=== PATIENT | male | born 1960 | race Hispanic/Latino ===

== ENCOUNTER → 2017-07-05 | Day surgery (SDC) | payer MEDICARE ==
[2017-07-04 13:20] LABS: BASOPHILS % 0.3 % (0.0-1.0); EOSINOPHILS # (AUTO) 0.1 (0.0-0.4); EOSINOPHILS % 1.7 % (0.0-6.0); HEMATOCRIT 35.7 % (38.2-49.6); HEMOGLOBIN 12.6 g/dL (14.0-18.0); LYMPHOCYTES # (AUTO) 0.9 (1.0-3.2); LYMPHOCYTES % 30.4 % (18.0-39.1); MEAN CORPUSCULAR HEMOGLOBIN 34.2 pg (28-32); MEAN CORPUSCULAR HGB CONC 35.3 g/dL (31-35); MONOCYTES # (AUTO) 0.3 (0.2-0.8); MONOCYTES % 10.5 % (4.4-11.3); NEUTROPHILS # (AUTO) 1.7 (2.1-6.9); NEUTROPHILS % 56.8 % (38.7-80.0); RED BLOOD COUNT 3.68 x10e6/uL (4.3-5.7)
[2017-07-04 13:27] LABS: PLATELET COUNT 34 x10e3/uL (140-360)
[2017-07-04 13:29] LABS: INR 1.06; PROTHROMBIN TIME 14.4 seconds (11.9-14.5)
[2017-07-04 13:30] LABS: PARTIAL THROMBOPLASTIN TIME 33.2 seconds (23.8-35.5)
[2017-07-04 13:38] LABS: ALBUMIN 2.9 g/dL (3.5-5.0); ALBUMIN/GLOBULIN RATIO 0.7 (0.8-2.0); ANION GAP 10.1 mmol/L (8-16); CALCIUM 8.8 mg/dL (8.4-10.2); CREATININE, SERUM 1.26 mg/dL (0.72-1.25); POTASSIUM 5.1 mmol/L (3.5-5.1)
[~2017-07-05] MED LIST: ASPIR 8181 MG PO; EPHEDRINE SULFATE INJ 50 MG/10 ML SYR ONE; ESMOLOL HCL 100MG/10ML 10 MG/ML VIAL ONE; FENTANYL CITRATE/PF 100MCG/2 ML INJ ONE; FOLIC ACID1 MG PO; FUROSEMIDE40 MG PO; GABAPENTIN300 MG PO; INSULIN DEGLUDEC SQ; INSULIN REGULAR, HUMAN 100 UNIT/1 ML 3ML VIAL ONE; LISINOPRIL2.5 MG PO; LONG ACTING INSULIN SQ; MIDAZOLAM HCL 2 MG/2 ML VIAL ONE; NOVOLIN R100 UNIT/1 SC; OMEPRAZOLE40 MG PO; PROPOFOL IV EMULSION 10 MG/ML 50 ML VIAL ONE; PROPRANOLOL HCL10 MG PO; SODIUM CHLORIDE 0.9% 1000ML 1,000 ML ONE; SPIRONOLACTONE25 MG PO; TERBINAFINE HC250 MG PO; ULTRAM 50MG50 MG PO; VITAMIN B1 PO
== END | disposition home or self-care (01) ==
LOC: OR 08:17
PROVIDERS: ATTEND Internal Medicine Gastroenterology
DX: D64.9 Anemia, unspecified (principal); K70.30 Alcoholic cirrhosis of liver without ascites; I85.10 Secondary esophageal varices without bleeding; I86.4 Gastric varices; K29.70 Gastritis, unspecified, without bleeding; K31.89 Other diseases of stomach and duodenum; K21.9 Gastro-esophageal reflux disease without esophagitis; K59.00 Constipation, unspecified; I10 Essential (primary) hypertension; I49.3 Ventricular premature depolarization; R53.1 Weakness; E11.9 Type 2 diabetes mellitus without complications; G62.9 Polyneuropathy, unspecified; R06.02 Shortness of breath; R06.83 Snoring; R39.11 Hesitancy of micturition; F32.9 Major depressive disorder, single episode, unspecified; Z01.810 Encounter for preprocedural cardiovascular examination; Z01.812 Encounter for preprocedural laboratory examination; Z79.4 Long term (current) use of insulin; Z68.32 Body mass index [BMI] 32.0-32.9, adult
CPT/HCPCS: 36415; 43239; 43244; 80053; 85025; 85610; 85730; 93005; J2250; J7030; 43235

== ENCOUNTER 2017-07-07 16:52 | Inpatient (IN) | payer MEDICARE ==
[~2017-07-07] VITALS: Ht 167.6 cm; Wt 70.3 kg
[~2017-07-07 16:52] MED LIST changes: -EPHEDRINE SULFATE INJ 50 MG/10 ML SYR ONE; -ESMOLOL HCL 100MG/10ML 10 MG/ML VIAL ONE; -FENTANYL CITRATE/PF 100MCG/2 ML INJ ONE; -INSULIN REGULAR, HUMAN 100 UNIT/1 ML 3ML VIAL ONE; -MIDAZOLAM HCL 2 MG/2 ML VIAL ONE; -PROPOFOL IV EMULSION 10 MG/ML 50 ML VIAL ONE; -SODIUM CHLORIDE 0.9% 1000ML 1,000 ML ONE
--- NOTE | 2017-07-07 17:49 | Diagnostic Imaging Report ---
ANKLE 3+ VIEWS LEFT, FOOT LEFT COMPLETE, LOWER LEG LEFT - 3 views HISTORY: Pain. Swollen. Dislocated. COMPARISON: None available. FINDINGS: Bones: There are impaction fracture of the distal tibial and fibular metadiaphysis, with lateral anterior displacement of the fracture fragments with marked overriding. Joints: There is widening of the ankle mortise. Soft tissues: Plantar calcaneal enthesophyte. Extensive vascular calcifications. Bimalleolar soft tissue swelling. IMPRESSION: Markedly displaced impaction fractures of the distal tibial and fibular metadiaphysis (severe anterior lateral displacement of the fracture fragments. Disrupted ankle mortise. Signed by: Dr. Kartik Giron M.D. on 07/07/2017 5:45 PM
[2017-07-07] MEDS ORDERED: MORPHINE SULFATE 5 MG/ML VIAL IV PRN (19:00)
[2017-07-07] MEDS ORDERED: FENTANYL CITRATE/PF 100MCG/2 ML INJ IV ONE (21:15)
[2017-07-07] MEDS ORDERED: ONDANSETRON HCL INJ 2 MG/ML VIAL IV ONE (21:15)
--- NOTE | 2017-07-07 21:50 | Diagnostic Imaging Report ---
ANKLE TWO VIEWS LEFT Comparison: Earlier same day Clinical history: Post reduction Findings: Overlying casting material limits evaluation of bony detail. Vascular calcifications again noted. Impression: Complex intra-articular impaction fracture of the distal tibia extending into the plafond. No significant change in alignment status post splinting. Mildly displaced lateral fibular fracture with mildly improved alignment. Signed by: Dr Ana Bentley MD on 07/07/2017 9:46 PM
--- NOTE | 2017-07-07 23:01 | Diagnostic Imaging Report ---
CHEST SINGLE (PORTABLE), 07/07/2017 10:12 PM Technique: CHEST SINGLE (PORTABLE) Comparison: 08/10/2015 Clinical history: Preop for surgery Findings: Heart/mediastinum: Stable mildly enlarged Lungs/pleural spaces: Stable. Low lung volumes with left basilar pleural thickening/scarring. 2 metallic densities again overlie the right hemithorax. Impression: Stable chest Signed by: Dr Ana Bentley MD on 07/07/2017 10:57 PM
[2017-07-07 23:09] LABS: BASOPHILS % 0.5 % (0.0-1.0); EOSINOPHILS # (AUTO) 0.2 (0.0-0.4); EOSINOPHILS % 2.9 % (0.0-6.0); HEMOGLOBIN 13.3 g/dL (14.0-18.0); LYMPHOCYTES # (AUTO) 1.4 (1.0-3.2); LYMPHOCYTES % 24.5 % (18.0-39.1); MEAN CORPUSCULAR HEMOGLOBIN 34.1 pg (28-32); MEAN CORPUSCULAR HGB CONC 35.9 g/dL (31-35); MEAN CORPUSCULAR VOLUME 94.9 fL (81-99); MONOCYTES # (AUTO) 0.7 (0.2-0.8); MONOCYTES % 12.5 % (4.4-11.3); NEUTROPHILS # (AUTO) 3.3 (2.1-6.9); NEUTROPHILS % 59.2 % (38.7-80.0)
[2017-07-07 23:13] LABS: PLATELET COUNT 42 x10e3/uL (140-360)
[2017-07-07 23:19] LABS: INR 1.08; PROTHROMBIN TIME 14.6 seconds (11.9-14.5)
[2017-07-07 23:20] LABS: PARTIAL THROMBOPLASTIN TIME 33.5 seconds (23.8-35.5)
[2017-07-07 23:29] LABS: ALANINE AMINOTRANSFERASE 21 IU/L (0-55); ALBUMIN 2.8 g/dL (3.5-5.0); ALBUMIN/GLOBULIN RATIO 0.6 (0.8-2.0); ALKALINE PHOSPHATASE 186 IU/L (40-150); ANION GAP 11.9 mmol/L (8-16); BLOOD UREA NITROGEN 26 mg/dL (7-26); BUN/CREATININE RATIO 23 (6-25); CALCIUM 8.2 mg/dL (8.4-10.2); CARBON DIOXIDE 25 mmol/L (22-29); CHLORIDE 99 mmol/L (98-107); CREATININE, SERUM 1.12 mg/dL (0.72-1.25); EST GLOMERULAR FILTRATION RATE > 60 ML/MIN (60-); GLUCOSE 351 mg/dL (74-118); POTASSIUM 3.9 mmol/L (3.5-5.1); SODIUM 132 mmol/L (136-145)
[2017-07-08] MEDS ORDERED: DEXTROSE 50% SYRINGE 50 ML IV PRN (00:30)
[2017-07-08] MEDS ORDERED: ONDANSETRON HCL INJ 2 MG/ML VIAL IV PRN (00:30)
[2017-07-08] MEDS ORDERED: HYDROMORPHONE 1MG/1ML INJ IV PRN (00:30)
[2017-07-08] MEDS: SODIUM CHLORIDE 0.9% 1000ML 1,000 ML IV SCH ×2 (01:50→10:30)
[2017-07-08] MEDS ORDERED: SODIUM CHLORIDE 0.9% 250ML 250 ML ONE (03:22)
[2017-07-08 07:58] VITALS: BP 126/85
[2017-07-08] MEDS: INSULIN REGULAR, HUMAN 100 UNIT/1 ML 3ML VIAL SQ SCH ×2 (08:10→19:39)
[2017-07-08 09:23] LABS: BASOPHILS % 0.5 % (0.0-1.0); EOSINOPHILS # (AUTO) 0.2 (0.0-0.4); EOSINOPHILS % 3.8 % (0.0-6.0); HEMATOCRIT 31.4 % (38.2-49.6); HEMOGLOBIN 11.5 g/dL (14.0-18.0); LYMPHOCYTES # (AUTO) 1.3 (1.0-3.2); LYMPHOCYTES % 29.8 % (18.0-39.1); MEAN CORPUSCULAR HEMOGLOBIN 34.3 pg (28-32); MEAN CORPUSCULAR HGB CONC 36.6 g/dL (31-35); MEAN CORPUSCULAR VOLUME 93.7 fL (81-99); MONOCYTES # (AUTO) 0.5 (0.2-0.8); MONOCYTES % 12.4 % (4.4-11.3); NEUTROPHILS # (AUTO) 2.3 (2.1-6.9); NEUTROPHILS % 53.3 % (38.7-80.0); PLATELET COUNT 69 x10e3/uL (140-360); RED BLOOD COUNT 3.35 x10e6/uL (4.3-5.7); RED CELL DISTRIBUTION WIDTH 14.1 % (11.7-14.4)
[2017-07-08 09:40] LABS: ALANINE AMINOTRANSFERASE 17 IU/L (0-55); ALBUMIN 2.6 g/dL (3.5-5.0); ALBUMIN/GLOBULIN RATIO 0.6 (0.8-2.0); ALKALINE PHOSPHATASE 147 IU/L (40-150); ANION GAP 9.5 mmol/L (8-16); BLOOD UREA NITROGEN 24 mg/dL (7-26); BUN/CREATININE RATIO 26 (6-25); CALCIUM 7.9 mg/dL (8.4-10.2); CARBON DIOXIDE 25 mmol/L (22-29); CHLORIDE 102 mmol/L (98-107); CREATININE, SERUM 0.91 mg/dL (0.72-1.25); EST GLOMERULAR FILTRATION RATE > 60 ML/MIN (60-); GLUCOSE 243 mg/dL (74-118); POTASSIUM 3.5 mmol/L (3.5-5.1); SODIUM 133 mmol/L (136-145)
[2017-07-08] MEDS ORDERED: INSULIN REGULAR, HUMAN 100 UNIT/1 ML 3ML VIAL ONE (09:55)
[2017-07-08] MEDS ORDERED: ONDANSETRON HCL INJ 2 MG/ML VIAL ONE (11:40)
[2017-07-08] MEDS ORDERED: LIDOCAINE HCL 2% LOCAL INJ 5 ML SDV VIAL INJ ONE (11:40)
[2017-07-08] MEDS ORDERED: CEFAZOLIN SOD 1 GM VIAL ONE (11:40)
[2017-07-08] MEDS ORDERED: SEVOFLURANE INHAL SOLN 250 ML PEN BTL ONE (11:40)
[2017-07-08] MEDS ORDERED: PROPOFOL IV EMULSION 10 MG/ML 20 ML VIAL ONE (11:40)
[2017-07-08] MEDS ORDERED: DEXAMETHASONE SOD PHOS INJ 4 MG/ML VIAL ONE (11:40)
[2017-07-08] MEDS ORDERED: BUPIVACAINE HCL 0.5% INJ 30 ML VIAL INJ ONE (12:37)
[2017-07-08] MEDS ORDERED: MUPIROCIN 2% OINT 22 GM TUBE ONE (12:37)
[2017-07-08] MEDS ORDERED: BACITRACIN 50,000 UNIT VIAL ONE (12:38)
[2017-07-08] MEDS ORDERED: BACITRACIN ZINC 15 GM OINT ONE (12:38)
[2017-07-08] MEDS ORDERED: CEFAZOLIN SOD 2 GM/D5W 50ML 50 ML IV ONE (15:16)
--- NOTE | 2017-07-08 15:39 | Operative Report ---
DATE OF PROCEDURE: July 08, 2017 PREOPERATIVE DIAGNOSIS: Displaced trimalleolar fracture left ankle. POSTOPERATIVE DIAGNOSIS: Displaced trimalleolar fracture left ankle. TITLE OF OPERATION: Open reduction with internal fixation trimalleolar fracture tibia, fibula, and posterior malleolus. Human tissue allograft was injected in flowable form. ANESTHESIA: General endotracheal. HEMOSTASIS: A left thigh tourniquet at 350 mmHg. PROCEDURE IN DETAIL: The patient was taken to the operating room in a mildly sedated state and placed upon the operating table in supine position. Following induction of a general anesthetic, the left lower extremity was elevated to 60 degrees to exsanguinate before inflating the pneumatic thigh tourniquet to 350 mmHg to create hemostasis. The left lower extremity was placed upon the operating table prior to performing the following procedure. Procedure number 1, open reduction with internal fixation of the trimalleolar fracture of the left foot: A linear longitudinal incision was then placed across the lateral aspect of the fibula. The fibular fracture was noted to be in 3 different segments, was realigned with traction and clamps, and a Wiser (formerly WisePricer) fibular plate was applied with multiple locking and nonlocking screws. This having been plated, the posterior malleolus was realigned along with medial malleolus utilizing clamps. Posterior malleolus was fixated from anterior to posterior with a bone screw. The medial malleolus was realigned, and a bone clamp was used to align the joint and tibial plafond appropriately. Talus was inspected and noted to be within the mortise appropriately. All was done under fluoroscopy. A series of cortical cancellous locking and nonlocking screws was used to achieve and maintain appropriate alignment. This was confirmed with radiographs and fluoroscopy. The area was then irrigated with copious amounts of sterile saline solution. The medial malleolar fracture fragments were intra-articular and multiple in nature as well. This having been accomplished and the appropriate alignment having been achieved, deep closure was 3-0 Vicryl, subcutaneous closure 4-0 Vicryl. A TLS drain was applied to the medial wound. Nylon was used to close the wound. A posterior splint was applied. Human tissue allograft was injected in a flowable form to facilitate healing, and a 0.5 Marcaine block was utilized. The area was then released from the thigh tourniquet. A normal hyperemic flush was noted to all digits. The patient left the operating room with vital signs stable, in apparent satisfactory condition, having tolerated both the anesthetic and procedure very well. Job#: [id number] EV
--- NOTE | 2017-07-08 15:55 | Consultation ---
DATE OF CONSULTATION: July 08, 2017 EMERGENCY ROOM CONSULTATION LOCATION: ER #3. CHIEF COMPLAINT AND HISTORY OF CHIEF COMPLAINT: Mr. Hussein is a most pleasant 56-year-old gentleman who presented through the ER for fractured left ankle. His and daughter serve as primary historians. Mr. Hussein is alert and oriented and speaks primarily Persian. He used his family as translators. The patient apparently twisted his foot when standing up off of a toilet in a deeply recumbent, seated position. He was unable to bear weight, and the foot was noted to be dislocated from the ankle. He presented to the ER. Dr. River evaluated and called me for surgical consultation. PREVIOUS MEDICAL HISTORY: Includes diabetes and history of liver cirrhosis. He is a former drinker. He states he has not drank alcohol in 5 years. The patient is not a smoker. MEDICATIONS: He is on multiple medications, which are well documented elsewhere within the chart. REVIEW OF SYSTEMS: Otherwise within normal limits. He complains of only minimal pain in the left lower extremity. He has had surgical treatment for infections in the past. 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 The patient states he no longer works due to these infections and is disabled. PHYSICAL EXAMINATION, LOWER EXTREMITIES VASCULAR STATUS: The patient has mildly palpable pedal pulse. This was audible by Doppler earlier after reduction with splintage by the ER staff. NEUROLOGIC: The patient is grossly insensate with loss of protective sensation as evidenced by the [place] monofilament testing. DERMATOLOGIC: There are bruising and swelling of the lower extremity, multiple amputations as previously noted, and the 2nd digit of the left foot has a distal bruising of the subungual area with blackened discoloration, which is not disturbed at this point nor is it draining or obviously infected. MUSCULOSKELETAL: Evaluation shows a dislocated trimalleolar fracture in multiple segments. The fibula is displaced, and the medial malleolus is translated medially with posterior fragment in rotation. After ER treatment with closed reduction and splintage, the patient's pulse was restored, and it was felt it necessitated urgent open reduction with internal fixation for stabilization of the ankle. The patient is admitted for the same. Ancef 2 g ordered preop. We will keep him in house postoperatively until he is fully stable. Job#: [id number]
[2017-07-08] MEDS ORDERED: CEFAZOLIN SOD 1 GM VIAL IV SCH (18:00)
[2017-07-08 18:25] VITALS: BP 145/87
[2017-07-08 18:26] VITALS: BP 145/87
[2017-07-08 18:32] VITALS: BP 145/87
[2017-07-08] MEDS ORDERED: MIDAZOLAM HCL 2 MG/2 ML VIAL ONE (18:41)
[2017-07-08] MEDS ORDERED: FENTANYL CITRATE/PF 100MCG/2 ML INJ ONE (18:41)
[2017-07-08 18:48] VITALS: BP 145/87
[2017-07-08 20:00] VITALS: BP 140/85
[2017-07-08] MEDS: HYDROMORPHONE 2MG/ML INJ IV PRN (20:38)
[2017-07-08] MEDS: CEFAZOLIN SOD 1 GM VIAL IV SCH (20:38)
[2017-07-09] VITALS (9 sets, daily range): BP systolic 99–138; BP diastolic 56–81
[2017-07-09] MEDS ORDERED: SODIUM CHLORIDE 0.9% 1000ML 1,000 ML ONE (00:06)
[2017-07-09] MEDS: SODIUM CHLORIDE 0.9% 1000ML 1,000 ML IV SCH ×2 (00:11→06:30)
[2017-07-09] MEDS: HYDROMORPHONE 2MG/ML INJ IV PRN ×3 (00:44→22:31)
[2017-07-09] MEDS: CEFAZOLIN SOD 1 GM VIAL IV SCH ×4 (03:30→21:41)
[2017-07-09 07:10] LABS: BASOPHILS % 0.2 % (0.0-1.0); EOSINOPHILS % 0.3 % (0.0-6.0); HEMATOCRIT 30.8 % (38.2-49.6); HEMOGLOBIN 10.9 g/dL (14.0-18.0); LYMPHOCYTES # (AUTO) 0.9 (1.0-3.2); LYMPHOCYTES % 16.1 % (18.0-39.1); MEAN CORPUSCULAR HGB CONC 35.4 g/dL (31-35); MONOCYTES # (AUTO) 0.7 (0.2-0.8); MONOCYTES % 12.8 % (4.4-11.3); NEUTROPHILS # (AUTO) 4.1 (2.1-6.9); NEUTROPHILS % 70.4 % (38.7-80.0); PLATELET COUNT 60 x10e3/uL (140-360); RED BLOOD COUNT 3.21 x10e6/uL (4.3-5.7); RED CELL DISTRIBUTION WIDTH 13.9 % (11.7-14.4)
[2017-07-09] MEDS: INSULIN REGULAR, HUMAN 100 UNIT/1 ML 3ML VIAL SQ SCH ×4 (07:48→19:33)
[2017-07-09 07:49] LABS: ALANINE AMINOTRANSFERASE 14 IU/L (0-55); ALBUMIN 2.4 g/dL (3.5-5.0); ALBUMIN/GLOBULIN RATIO 0.6 (0.8-2.0); ALKALINE PHOSPHATASE 129 IU/L (40-150); ANION GAP 10.1 mmol/L (8-16); BLOOD UREA NITROGEN 24 mg/dL (7-26); BUN/CREATININE RATIO 23 (6-25); CALCIUM 7.8 mg/dL (8.4-10.2); CARBON DIOXIDE 24 mmol/L (22-29); CHLORIDE 105 mmol/L (98-107); CREATININE, SERUM 1.03 mg/dL (0.72-1.25); EST GLOMERULAR FILTRATION RATE > 60 ML/MIN (60-); GLUCOSE 347 mg/dL (74-118); POTASSIUM 4.1 mmol/L (3.5-5.1); SODIUM 135 mmol/L (136-145)
[2017-07-09] MEDS: ACETAMINOPHEN 325 MG TAB PO PRN (12:36)
--- NOTE | 2017-07-09 14:16 | History and Physical ---
The patient was seen in the emergency room the day of admission. The patient went to surgery on July 08, 2017. HISTORY: The patient is a 56-year-old male who apparently came to the emergency room with a very complicated left ankle fracture. The patient apparently has a right TMA. Therefore, when he stands up at times he twists his left foot most often. The patient apparently was on the toilet when he standing from the toilet and put weight on the left foot and dislocated his ankle due to the sprain. The patient was brought to the emergency room. Here, the patient has a complicated left ankle fracture with swelling. X-ray showed that the patient has a markedly displaced impacted fracture of the distal tibia and fibular metadiaphysis with severe anterolateral displacement of the fracture fragments. There was disrupted ankle mortis. The patient needs surgical intervention. Dr. Renny Hoang was consulted. The patient is stable. PAST MEDICAL HISTORY: Liver cirrhosis due to history of alcohol consumption, diabetes, type 2, on insulin therapy, hypertension, dyslipidemia, diabetic neuropathy, chronic venous stasis of the bilateral extremity. PAST SURGICAL HISTORY: Right TMA of the right foot and left toe amputation. SOCIAL HISTORY: Patient was an ex-alcoholic with liver cirrhosis, but otherwise the patient does not currently smoke, alcohol or any drug consumption. He lives with his spouse and family. ALLERGIES: NO KNOWN ALLERGIES. HOME MEDICATIONS: List is available for review. REVIEW OF SYSTEMS: As mentioned. PHYSICAL EXAMINATION VITAL SIGNS: Temperature is 99.9, blood pressure 134/81, pulse rate 104, respirations 18. GENERAL: The patient is not in acute distress. HEENT: Normocephalic, atraumatic and anicteric. NECK: Supple grossly. PULMONARY: Diminished breath sounds. CARDIOVASCULAR: S1 and S2. Tachycardia. ABDOMEN: Soft and unremarkable. CUTANEOUS: Venous stasis skin changes. Right TMA. Left ankle complicated fracture. NEUROLOGIC: Diabetic neuropathy without any gross focal deficit. LABORATORY: Sodium is 132, potassium 3.9, chloride 99, bicarb is 25, BUN is 26, creatinine 1.1, glucose is 351. WBC is 5.6, hemoglobin 13.3, hematocrit 47, and platelet count 22,000. Coagulation: INR is 1.08. PTT is 33.5. Imaging of the lower extremity showed markedly displaced impacted fractures of the distal tibial and fibular metadiaphysis, severe anterolateral displacement of the fracture fragment and disrupted left ankle mortis. IMPRESSION 1. Complicated left trimalleolar fracture of the left ankle, closed fractures and complicated fractures with fibula and tibia fractures. 2. Multiple chronic baseline problems, including liver cirrhosis, low platelets, diabetes, type 2 with insulin therapy and significant comorbidities. PLAN: Surgical intervention with Dr. Renny Hoang, podiatry. Continue with postoperative care. Insulin sliding scale coverage. Incentive spirometry. Antibiotics. Monitor the patient's electrolytes and comprehensive blood count. Job#: [id number] [place]
[2017-07-09] MEDS: MUPIROCIN 2% OINT 22 GM TUBE TOP SCH (16:41)
[2017-07-09] MEDS: SPIRONOLACTONE 25 MG TAB PO SCH (16:41)
[2017-07-09] MEDS: PROPRANOLOL HCL 10 MG TAB PO SCH (16:41)
[2017-07-09] MEDS ORDERED: GABAPENTIN 300 MG CAP PO SCH (21:00)
[2017-07-09] MEDS ORDERED: INSULIN DETEMIR 100 UNIT/ML PEN SQ ONE (21:00)
[2017-07-09] MEDS: GABAPENTIN 100 MG CAP PO SCH (21:41)
[2017-07-09] MEDS: INSULIN DETEMIR 100 UNIT/ML PEN SQ SCH (21:42)
[2017-07-10] VITALS (7 sets, daily range): BP systolic 117–198; BP diastolic 69–92
--- NOTE | 2017-07-10 00:56 | Progress Note ---
DATE: July 09, 2017 SUBJECTIVE: Patient was seen at bedside. Doing well. Concerned about his 2nd toe, left foot. Is somewhat discolored. Has a grade 1 ulceration with some discoloration noted. OBJECTIVE VITALS: Afebrile, pulse rate 105, blood pressure 133/81, O2 saturation 98%, respiration rate 16. EXTREMITIES: Dressing dry and intact to the left ankle. Having minimal pain. Has a transmetatarsal amputation to the right lower extremity. Pedal pulses are palpable. Has an ulceration of the 2nd toe of the left foot unrelated to surgery with the toe being somewhat discolored. LABS: Noted. Has a white blood cell count of 5.76, hemoglobin 10.9, hematocrit 30.8 with a platelet count of 60,000. Blood glucose of 3 47. INR of 1.08. ASSESSMENT: Cellulitis with a grade 1 ulcer/grade 2 ulcer, 2nd toe, left foot with diabetic neuropathy. Will start applying Bactroban ointment b.i.d. to the affected area. Continue IV cefazolin. Continue offloading. Dr. Hoang will continue to follow. Job#: [id number] [place]
[2017-07-10] MEDS: CEFAZOLIN SOD 1 GM VIAL IV SCH ×4 (03:28→20:29)
[2017-07-10] MEDS: ACETAMINOPHEN 325 MG TAB PO PRN (05:51)
[2017-07-10] MEDS: INSULIN REGULAR, HUMAN 100 UNIT/1 ML 3ML VIAL SQ SCH ×5 (07:30→20:30)
[2017-07-10 07:52] LABS: BASOPHILS % 0.4 % (0.0-1.0); EOSINOPHILS # (AUTO) 0.3 (0.0-0.4); EOSINOPHILS % 4.2 % (0.0-6.0); HEMATOCRIT 32.3 % (38.2-49.6); HEMOGLOBIN 11.5 g/dL (14.0-18.0); LYMPHOCYTES # (AUTO) 1.6 (1.0-3.2); MEAN CORPUSCULAR HEMOGLOBIN 34.2 pg (28-32); MEAN CORPUSCULAR HGB CONC 35.6 g/dL (31-35); MEAN CORPUSCULAR VOLUME 96.1 fL (81-99); MONOCYTES # (AUTO) 0.7 (0.2-0.8); MONOCYTES % 10.5 % (4.4-11.3); NEUTROPHILS # (AUTO) 4.1 (2.1-6.9); NEUTROPHILS % 60.5 % (38.7-80.0); PLATELET COUNT 61 x10e3/uL (140-360); RED BLOOD COUNT 3.36 x10e6/uL (4.3-5.7); RED CELL DISTRIBUTION WIDTH 14.3 % (11.7-14.4)
[2017-07-10 08:05] LABS: ANION GAP 8.4 mmol/L (8-16); BLOOD UREA NITROGEN 18 mg/dL (7-26); BUN/CREATININE RATIO 23 (6-25); CALCIUM 7.8 mg/dL (8.4-10.2); CARBON DIOXIDE 24 mmol/L (22-29); CHLORIDE 103 mmol/L (98-107); CREATININE, SERUM 0.79 mg/dL (0.72-1.25); EST GLOMERULAR FILTRATION RATE > 60 ML/MIN (60-); GLUCOSE 61 mg/dL (74-118); POTASSIUM 3.4 mmol/L (3.5-5.1); SODIUM 132 mmol/L (136-145)
[2017-07-10] MEDS: PANTOPRAZOLE SOD 40 MG TABEC PO SCH (08:25)
[2017-07-10] MEDS: SPIRONOLACTONE 25 MG TAB PO SCH ×2 (08:25→17:17)
[2017-07-10] MEDS: [UNRECOGNIZED DRUG - OTHER] PO SCH (08:25)
[2017-07-10] MEDS: PROPRANOLOL HCL 10 MG TAB PO SCH ×2 (08:26→17:18)
[2017-07-10] MEDS: MUPIROCIN 2% OINT 22 GM TUBE TOP SCH ×2 (08:26→17:17)
[2017-07-10] MEDS: TRAMADOL HCL 50 MG TAB PO PRN (08:59)
[2017-07-10] MEDS ORDERED: POTASSIUM CHLORIDE 20 MEQ TAB CR PO ONE (10:00)
--- NOTE | 2017-07-10 14:34 | Progress Note ---
DATE: July 10, 2017 SUBJECTIVE: Patient seen at bedside. Decreased discomfort to the left lower extremity. Denying any history of fever, chills, nausea or vomiting. OBJECTIVE VITAL SIGNS: Afebrile. Pulse rate 91. Respirations 18. Blood pressure 148/92. O2 saturation 93%. LABS: White blood cell count 6.74. EXTREMITIES: Ulceration to the 2nd toe, left foot, getting somewhat better. Still has discoloration to the 2nd toe, left foot, unrelated to surgery with a grade-2 ulceration distal aspect. ASSESSMENT: Grade-2 ulcer, 2nd toe, left foot, status post open reduction and internal fixation of trimalleolar fracture, left ankle. PLAN: Will continue IV antibiotics. Continue local wound care with Bactroban ointment. Continue offloading. Dr. Renny Hoang will continue to follow. Job#: [id number]
[2017-07-10] MEDS: GABAPENTIN 100 MG CAP PO SCH (20:29)
[2017-07-10] MEDS: INSULIN DETEMIR 100 UNIT/ML PEN SQ SCH (20:31)
[2017-07-10] MEDS: HYDROMORPHONE 2MG/ML INJ IV PRN (20:34)
[2017-07-11] VITALS: BP 134/75
[2017-07-11] MEDS: CEFAZOLIN SOD 1 GM VIAL IV SCH ×4 (03:24→20:24)
[2017-07-11 04:00] VITALS: BP 132/84
[2017-07-11 07:04] LABS: BASOPHILS % 0.6 % (0.0-1.0); EOSINOPHILS # (AUTO) 0.3 (0.0-0.4); EOSINOPHILS % 5.6 % (0.0-6.0); HEMATOCRIT 32.3 % (38.2-49.6); HEMOGLOBIN 11.4 g/dL (14.0-18.0); LYMPHOCYTES # (AUTO) 1.7 (1.0-3.2); LYMPHOCYTES % 32.6 % (18.0-39.1); MEAN CORPUSCULAR HEMOGLOBIN 33.7 pg (28-32); MEAN CORPUSCULAR HGB CONC 35.3 g/dL (31-35); MEAN CORPUSCULAR VOLUME 95.6 fL (81-99); MONOCYTES # (AUTO) 0.5 (0.2-0.8); MONOCYTES % 9.4 % (4.4-11.3); NEUTROPHILS # (AUTO) 2.7 (2.1-6.9); NEUTROPHILS % 51.4 % (38.7-80.0); PLATELET COUNT 50 x10e3/uL (140-360); RED BLOOD COUNT 3.38 x10e6/uL (4.3-5.7); RED CELL DISTRIBUTION WIDTH 13.9 % (11.7-14.4)
[2017-07-11] MEDS: INSULIN REGULAR, HUMAN 100 UNIT/1 ML 3ML VIAL SQ SCH ×5 (07:30→21:00)
[2017-07-11 07:38] LABS: ANION GAP 9.9 mmol/L (8-16); BLOOD UREA NITROGEN 15 mg/dL (7-26); BUN/CREATININE RATIO 20 (6-25); CALCIUM 8.1 mg/dL (8.4-10.2); CARBON DIOXIDE 25 mmol/L (22-29); CHLORIDE 105 mmol/L (98-107); CREATININE, SERUM 0.75 mg/dL (0.72-1.25); EST GLOMERULAR FILTRATION RATE > 60 ML/MIN (60-); GLUCOSE 61 mg/dL (74-118); POTASSIUM 3.9 mmol/L (3.5-5.1); SODIUM 136 mmol/L (136-145)
[2017-07-11 08:00] VITALS: BP 153/93
[2017-07-11] MEDS: PROPRANOLOL HCL 10 MG TAB PO SCH ×2 (08:23→17:09)
[2017-07-11] MEDS: SPIRONOLACTONE 25 MG TAB PO SCH ×2 (08:23→17:03)
[2017-07-11] MEDS: PANTOPRAZOLE SOD 40 MG TABEC PO SCH (08:23)
[2017-07-11] MEDS: MUPIROCIN 2% OINT 22 GM TUBE TOP SCH ×2 (08:24→17:09)
[2017-07-11] MEDS: [UNRECOGNIZED DRUG - OTHER] PO SCH (09:00)
[2017-07-11 12:00] VITALS: BP 132/77
[2017-07-11 16:00] VITALS: BP 144/84
[2017-07-11 20:00] VITALS: BP 128/70
[2017-07-11] MEDS: GABAPENTIN 100 MG CAP PO SCH (20:24)
[2017-07-11] MEDS: HYDROMORPHONE 2MG/ML INJ IV PRN (20:27)
[2017-07-11] MEDS: INSULIN DETEMIR 100 UNIT/ML PEN SQ SCH (21:00)
[2017-07-12] VITALS: BP 131/79
[2017-07-12] MEDS: CEFAZOLIN SOD 1 GM VIAL IV SCH ×4 (03:31→21:28)
[2017-07-12 04:00] VITALS: BP 124/79
[2017-07-12] MEDS: INSULIN REGULAR, HUMAN 100 UNIT/1 ML 3ML VIAL SQ SCH ×5 (07:30→21:00)
[2017-07-12 07:47] VITALS: BP 143/83
[2017-07-12] MEDS: MUPIROCIN 2% OINT 22 GM TUBE TOP SCH ×2 (08:40→17:02)
[2017-07-12] MEDS: PROPRANOLOL HCL 10 MG TAB PO SCH ×2 (08:40→17:02)
[2017-07-12] MEDS: PANTOPRAZOLE SOD 40 MG TABEC PO SCH (08:40)
[2017-07-12] MEDS: SPIRONOLACTONE 25 MG TAB PO SCH ×2 (08:40→17:02)
[2017-07-12] MEDS: [UNRECOGNIZED DRUG - OTHER] PO SCH (08:47)
[2017-07-12 12:28] VITALS: BP 131/76
[2017-07-12] MEDS: HYDROMORPHONE 2MG/ML INJ IV PRN ×2 (12:38→21:29)
--- NOTE | 2017-07-12 14:30 | Progress Note ---
DATE: July 12, 2017 FOLLOWUP HOSPITAL NOTE Patient is seen today status post ORIF of the left ankle. The patient is status post transmetatarsal amputation of the right foot. The patient has done well since surgery. No complaints of pain. He states that he is improving with regards to his diet and activity level. The patient had undergone an ORIF of the left ankle, and currently is nonweightbearing on left utilizing a transfer pressure on the right foot, which is status post TMA in a diabetic patient. He does have distal ulcerations of the hallux and 2nd digit, which are dry and being treated with Bactroban ointment. These are unrelated to the fracture. The patient definitely would benefit from a transfer to skilled care or LTAC for further care. His left lower extremity is casted. Drain is functional and changed today. The posterior splint will remain in place until a fiberglass cast is placed on his foot, which can be done in 1 week in my office. He is okay to transfer to LTAC or snf as soon as approved. Job#: [id number] [place]
[2017-07-12 16:57] VITALS: BP 113/74
[2017-07-12 20:00] VITALS: BP 122/72
[2017-07-12] MEDS: INSULIN DETEMIR 100 UNIT/ML PEN SQ SCH (21:00)
[2017-07-12] MEDS: GABAPENTIN 100 MG CAP PO SCH (21:28)
[2017-07-13] VITALS: BP 127/77
[2017-07-13] MEDS: CEFAZOLIN SOD 1 GM VIAL IV SCH ×2 (05:30→08:22)
[2017-07-13] MEDS: PANTOPRAZOLE SOD 40 MG TABEC PO SCH (07:29)
[2017-07-13] MEDS: INSULIN REGULAR, HUMAN 100 UNIT/1 ML 3ML VIAL SQ SCH ×3 (07:30→11:57)
[2017-07-13 08:02] VITALS: BP 125/79
[2017-07-13] MEDS: SPIRONOLACTONE 25 MG TAB PO SCH (08:22)
[2017-07-13] MEDS: [UNRECOGNIZED DRUG - OTHER] PO SCH (08:23)
[2017-07-13] MEDS: MUPIROCIN 2% OINT 22 GM TUBE TOP SCH (08:23)
[2017-07-13] MEDS: PROPRANOLOL HCL 10 MG TAB PO SCH (08:23)
[2017-07-13 09:37] VITALS: BP 125/79
[2017-07-13] MEDS: TRAMADOL HCL 50 MG TAB PO PRN (09:43)
[2017-07-13 11:29] VITALS: BP 119/72
== END 2017-07-13 14:00 | DRG 493 ==
LOC: ER 16:52 → ERHOLD 07-08 07:17 → UNDOADMIN 07-08 07:17 → OR 07-08 09:21 → MED/SURG 07-08 17:54
PROVIDERS: ADMIT Internal Medicine; ATTEND Internal Medicine
PROC: 0QSK04Z Reposition Left Fibula with Internal Fixation Device, Open Approach (ICD-10-PCS; 2017-07-08)
PROC: 30233R1 Transfusion of Nonautologous Platelets into Peripheral Vein, Percutaneous Approach (ICD-10-PCS; 2017-07-08)
PROC: 0SSGXZZ Reposition Left Ankle Joint, External Approach (ICD-10-PCS; 2017-07-08)
PROC: 0QSH04Z Reposition Left Tibia with Internal Fixation Device, Open Approach (ICD-10-PCS; principal; 2017-07-08 10:00)
DX: S82.852A Displaced trimalleolar fracture of left lower leg, initial encounter for closed fracture (principal); L03.116 Cellulitis of left lower limb; E11.40 Type 2 diabetes mellitus with diabetic neuropathy, unspecified; E11.621 Type 2 diabetes mellitus with foot ulcer; D69.6 Thrombocytopenia, unspecified; K70.30 Alcoholic cirrhosis of liver without ascites; W18.11XA Fall from or off toilet without subsequent striking against object, initial encounter; Y93.E8 Activity, other personal hygiene; Y92.002 Bathroom of unspecified non-institutional (private) residence as the place of occurrence of the external cause; I10 Essential (primary) hypertension; L97.521 Non-pressure chronic ulcer of other part of left foot limited to breakdown of skin; F10.21 Alcohol dependence, in remission; I87.8 Other specified disorders of veins; Z89.431 Acquired absence of right foot; Z89.421 Acquired absence of other right toe(s); I73.9 Peripheral vascular disease, unspecified; Z79.4 Long term (current) use of insulin
CPT/HCPCS: 36415; 36430; 71045; 76001; 80048; 80053; 82607; 82948; 83036; 84443; 85025; 85610; 85730; 86850; 86900; 93005; 97139; 99284; J0690; J1100; J2001; J2250; J2270; J2405; J7030; J7050; P9034

== ENCOUNTER 2018-01-19 15:42 | Inpatient (IN) | payer MEDICARE ==
[~2018-01-19] VITALS: Ht 167.6 cm; Wt 93.5 kg
[2018-01-19] MEDS ORDERED: HYDROCODONE/APAP 10MG-325MG TAB PO ONE (17:30)
[2018-01-19 17:57] LABS: BASOPHILS % 0.3 % (0.0-1.0); EOSINOPHILS # (AUTO) 0.1 (0.0-0.4); EOSINOPHILS % 3.8 % (0.0-6.0); HEMATOCRIT 35.3 % (38.2-49.6); HEMOGLOBIN 12.6 g/dL (14.0-18.0); LYMPHOCYTES % 30.9 % (18.0-39.1); MEAN CORPUSCULAR HEMOGLOBIN 32.9 pg (28-32); MEAN CORPUSCULAR HGB CONC 35.7 g/dL (31-35); MEAN CORPUSCULAR VOLUME 92.2 fL (81-99); MONOCYTES # (AUTO) 0.4 (0.2-0.8); NEUTROPHILS # (AUTO) 1.7 (2.1-6.9); NEUTROPHILS % 52.7 % (38.7-80.0); RED BLOOD COUNT 3.83 x10e6/uL (4.3-5.7); RED CELL DISTRIBUTION WIDTH 14.2 % (11.7-14.4)
[2018-01-19 17:59] LABS: PLATELET COUNT 45 x10e3/uL (140-360)
[2018-01-19 18:05] LABS: INR 1.15; PROTHROMBIN TIME 13.8 seconds (11.9-14.5)
[2018-01-19 18:06] LABS: PARTIAL THROMBOPLASTIN TIME 32.6 seconds (23.8-35.5)
[2018-01-19 18:16] LABS: ALANINE AMINOTRANSFERASE 19 IU/L (0-55); ALBUMIN 2.2 g/dL (3.5-5.0); ALBUMIN/GLOBULIN RATIO 0.5 (0.8-2.0); ALKALINE PHOSPHATASE 228 IU/L (40-150); ANION GAP 12.1 mmol/L (8-16); BLOOD UREA NITROGEN 21 mg/dL (7-26); BUN/CREATININE RATIO 19 (6-25); CALCIUM 8.6 mg/dL (8.4-10.2); CARBON DIOXIDE 25 mmol/L (22-29); CHLORIDE 101 mmol/L (98-107); EST GLOMERULAR FILTRATION RATE > 60 ML/MIN (60-); GLUCOSE 237 mg/dL (74-118); POTASSIUM 4.1 mmol/L (3.5-5.1); SODIUM 134 mmol/L (136-145)
--- NOTE | 2018-01-19 18:44 | Diagnostic Imaging Report ---
PROCEDURE:X-RAY LEFT FOOT, COMPLETE COMPARISON:[facility], DX, FOOT LEFT COMPLETE, 07/07/2017, 17:06. [facility], DX, ANKLE 3+ VIEWS LEFT, 01/19/2018, 18:15. INDICATIONS:FOOT SWELLING FINDINGS: Marked generalized osteopenia, which limits evaluation of bony structures. No acute, displaced fractures or dislocations. No lytic or blastic lesions. Degenerative changes, predominantly in the fifth toe distal interphalangeal joint. Large anterior calcaneal enthesophyte. Extensive vascular calcifications. No definite areas of cortical erosion or destruction. Status post amputation of the third toe At the metatarsophalangeal level with intact cortical surfaces. Partially visualized. Orthopedic hardware in the distal fibula and tibia. Mild to moderate soft tissue swelling in the dorsal aspect of the foot. CONCLUSION: Marked generalized osteopenia, which limits evaluation of the bony structures. No definite acute abnormalities. No cortical erosions or destruction. [id number] soft tissue swelling Francisco Hare M.D. Dictated by: Francisco Hare M.D. on 01/19/2018 at 18:50 Electronically approved by: Francisco Hare M.D. on 01/19/2018 at 18:50
--- NOTE | 2018-01-19 18:50 | Diagnostic Imaging Report ---
PROCEDURE:ANKLE 3+ VIEWS LEFT INDICATION:Ankle swelling COMPARISON:[facility], DX, ANKLE TWO VIEWS LEFT, 07/07/2017, 21:32. FINDINGS: Marked generalized osteopenia, which limits evaluation of the bony structures. Status post ORIF of previously visualized distal fibular and tibial fractures with plate and screw constructs as well as a orthopedic screw traversing the distal tibia in anteroposterior fashion. There is fracture of 4 most proximal screws in the tibial plate and screw construct. No associated lucencies. Fibular hardware is intact, without associated lucencies. Ankle mortise is relatively well-preserved. Extensive vascular calcifications. Fracture line in the distal tibia is still visible. Marked soft tissue swelling surrounding the ankle. CONCLUSION: 1. Marked generalized osteopenia which limits evaluation of the bony structures. No definite acute, displaced fracture or dislocation. 2. Status post ORIF of distal fibular and tibial fractures with plate and screw constructs. Fracture of the 4 most proximal screws in the tibial plate and screw construct, without associated lucencies. 3. Marked soft tissue swelling surrounding the ankle. Francisco Hare M.D. Dictated by: Francisco Hare M.D. on 01/19/2018 at 18:55 Electronically approved by: Francisco Hare M.D. on 01/19/2018 at 18:55
[2018-01-19] MEDS ORDERED: DEXTROSE 50% SYRINGE 50 ML IV PRN (20:00)
[2018-01-19] MEDS ORDERED: HYDROCODONE/APAP 5MG-325MG TAB PO PRN (20:00)
[2018-01-19] MEDS: PIPER-TAZ 3.375 GM 50 ML IV SCH (20:15)
[2018-01-19] MEDS: INSULIN REGULAR, HUMAN 100 UNIT/1 ML 3ML VIAL SQ SCH (20:15)
[2018-01-19] MEDS: VANCOMYCIN 1GM/NS 250 ML 250 ML IV SCH (20:15)
[2018-01-19 22:00] VITALS: BP 179/112
[2018-01-19 22:26] VITALS: BP 166/106
[2018-01-19 23:15] VITALS: BP 166/106
[2018-01-20] VITALS (8 sets, daily range): BP systolic 144–166; BP diastolic 82–106
[2018-01-20] MEDS ORDERED: PIPER-TAZ 3.375 GM 50 ML IV SCH
[2018-01-20] MEDS: PIPER-TAZ 3.375 GM 50 ML IV SCH ×3 (03:00→17:03)
[2018-01-20] MEDS: INSULIN REGULAR, HUMAN 100 UNIT/1 ML 3ML VIAL SQ SCH ×4 (07:30→21:00)
[2018-01-20] MEDS: VANCOMYCIN 1GM/NS 250 ML 250 ML IV SCH ×2 (09:15→21:00)
[2018-01-20] MEDS ORDERED: FUROSEMIDE40 MG PO (11:29)
[2018-01-20] MEDS ORDERED: ACETAMINOPHEN 325 MG TAB PO PRN (11:45)
[2018-01-20] MEDS ORDERED: ONDANSETRON HCL INJ 2 MG/ML VIAL IV PRN (11:45)
[2018-01-20] MEDS ORDERED: DEXTROSE 50% SYRINGE 50 ML IV PRN (12:00)
--- NOTE | 2018-01-20 13:35 | History and Physical ---
CHIEF COMPLAINT: Left ankle swelling. HISTORY OF PRESENT ILLNESS: This is a 57-year-old male with past medical history of diabetes, liver cirrhosis due to alcohol abuse, hypertension, dyslipidemia, and diabetic neuropathy who comes in to the ED with complaints of left lower extremity ankle swelling and cellulitis with redness. The patient reports that this has been ongoing for the last 3 days. He reports back in June he had a complicated ankle fracture, which required intervention. He also had a right TMA performed in the past. Patient reports to the ED that yesterday did have worsening swelling in the right ankle and worsening redness. He denies any fever at home. He reports no pain to the left ankle region. He denies any trauma or any twisting his ankle or any sprain to his left ankle. Patient seen and evaluated at bedside on the medical floor, currently doing well with no other complaints at this time. He reports that the cellulitis of his left ankle has improved tremendously since last night. REVIEW OF SYSTEMS: Pertinent Positives: Left ankle cellulitis with redness and swelling. Pertinent Negatives: Denies any chest pain, palpitation, nausea, vomiting, diarrhea, dysuria, hematuria, frequency, urgency, lightheadedness, dizziness, abdominal pain, headaches, shortness of breath, cough, congestion, fever or any other complaints. Rest of the 14-point review of systems has been reviewed with the patient and are negative. ALLERGIES: No known drug allergies. HOME MEDICATIONS: Furosemide 40 mg daily, gabapentin 100 mg at bedtime, Novolin R 25 units subcutaneously b.i.d., omeprazole 40 mg daily, and propranolol 20 mg p.o. b.i.d. PAST MEDICAL HISTORY: He had a history of liver cirrhosis, alcohol abuse, type 2 diabetes, hypertension, dyslipidemia, diabetic neuropathy, and chronic venous stasis of bilateral lower extremities. SURGICAL HISTORY: Right TMA of the right foot and left toe amputation. FAMILY HISTORY: Hypertension and diabetes. SOCIAL HISTORY: He was an ex-alcoholic with liver cirrhosis. No drugs. No alcohol. Good support. . VITAL SIGNS: Temperature is 96.4, pulse 76, respiratory rate is 18, blood pressure 144/87, and pulse ox 97% on room air. LABORATORY DATA: Lab findings showed white count is 3.1, hemoglobin 12.6, hematocrit is 35, and platelets of 45. PT is 13.8, INR 1.1, and PTT 32. 6. Chemistry: Sodium 134, potassium 4.1, chloride 101, bicarb 25, anion gap of 12, BUN is 21, and creatinine is 1.1. Lactic acid is 10, which is normal, calcium 8.6. LFTs are normal. Albumin 2.2. MICROBIOLOGY: None. IMAGING STUDIES: X-ray of the foot showed marked generalized osteopenia. No acute abnormalities. There is some [id number] soft tissue swelling. Ankle x-ray shows evidence of marked soft tissue swelling around the ankle. There is no evidence of dislocation or any fracture seen. Venous Doppler results are still pending. PHYSICAL EXAMINATION GENERAL: No acute distress. Alert and oriented x3, cooperative on exam. HEENT: Head: Normocephalic, atraumatic. Eyes: Pupils are equal, round, and reactive to light bilaterally. Extraocular muscles intact bilaterally. NECK: Supple. Good range of motion through. No evidence of any edema or exudates in the posterior pharynx, has poor dentition. PULMONARY: Clear to auscultation bilaterally. No wheezing, no rales, no rhonchi, no crackles appreciated. CARDIOVASCULAR: Positive S1, S2. No murmurs, rubs, or gallops appreciated. ABDOMEN: Soft, nondistended, nontender to palpation. Bowel sounds present. MUSCULOSKELETAL: Strength is 5/5 throughout. No evidence of any musculoskeletal deficit on examination. No muscle weakness appreciated. NEUROLOGIC: Cranial nerves II-XII grossly intact. No evidence of any neurologic deficits on exam. SKIN: Intact. Warm to touch. Good cap refill. PSYCHIATRIC: Normal affect and mood. EXTREMITIES: Bilateral lower extremity edema seen, left ankle region is red and erythematous, nontender to palpation, but much improved compared to yesterday. IMPRESSION 1. Left ankle cellulitis with swelling. 2. Type 2 diabetes. 3. Hypertension. 4. Morbidly obese. 5. History of ankle left transmalleolar fixation performed in June 2017. PLAN: At this time, patient will continue with IV antibiotics with vancomycin and Zosyn. Pending venous Doppler of the lower extremities. We are going to resume all his home medications. Put on insulin sliding scale and put on Lantus 10 units b.i.d. We are going to get a vancomycin trough as well. Continue with gabapentin for his peripheral neuropathy. Put him on Lovenox for DVT prophylaxis. Diabetic diet. We will continue to follow. Job#: [id number] FRIDA
[2018-01-20] MEDS: FUROSEMIDE INJ 10 MG/ML 4 ML VIAL IV SCH ×2 (14:00→21:00)
[2018-01-20] MEDS: ENOXAPARIN SOD INJ 40 MG/0.4 ML SYR SC SCH (17:04)
[2018-01-20] MEDS: PROPRANOLOL HCL 10 MG TAB PO SCH (17:04)
[2018-01-20] MEDS: INSULIN DETEMIR 100 UNIT/ML PEN SQ SCH (17:04)
[2018-01-20] MEDS: GABAPENTIN 100 MG CAP PO SCH (21:00)
[2018-01-21] VITALS (8 sets, daily range): BP systolic 146–170; BP diastolic 87–94
[2018-01-21] MEDS ORDERED: SODIUM CHLORIDE 0.9% 250ML 250 ML ONE (00:47)
[2018-01-21 05:51] LABS: BASOPHILS % 0.8 % (0.0-1.0); EOSINOPHILS # (AUTO) 0.1 (0.0-0.4); EOSINOPHILS % 3.7 % (0.0-6.0); HEMATOCRIT 33.4 % (38.2-49.6); LYMPHOCYTES # (AUTO) 1.4 (1.0-3.2); LYMPHOCYTES % 38.5 % (18.0-39.1); MEAN CORPUSCULAR HEMOGLOBIN 33.1 pg (28-32); MEAN CORPUSCULAR HGB CONC 35.9 g/dL (31-35); MONOCYTES # (AUTO) 0.4 (0.2-0.8); MONOCYTES % 11.5 % (4.4-11.3); NEUTROPHILS # (AUTO) 1.6 (2.1-6.9); NEUTROPHILS % 45.2 % (38.7-80.0); RED BLOOD COUNT 3.63 x10e6/uL (4.3-5.7); RED CELL DISTRIBUTION WIDTH 14.2 % (11.7-14.4)
[2018-01-21 05:53] LABS: PLATELET COUNT 42 x10e3/uL (140-360)
[2018-01-21 06:07] LABS: ANION GAP 12.4 mmol/L (8-16); BLOOD UREA NITROGEN 21 mg/dL (7-26); BUN/CREATININE RATIO 20 (6-25); CALCIUM 8.5 mg/dL (8.4-10.2); CARBON DIOXIDE 26 mmol/L (22-29); CHLORIDE 102 mmol/L (98-107); CREATININE, SERUM 1.07 mg/dL (0.72-1.25); EST GLOMERULAR FILTRATION RATE > 60 ML/MIN (60-); GLUCOSE 212 mg/dL (74-118); POTASSIUM 3.4 mmol/L (3.5-5.1); SODIUM 137 mmol/L (136-145)
[2018-01-21] MEDS ORDERED: INSULIN REGULAR, HUMAN 100 UNIT/1 ML 3ML VIAL SQ SCH (07:30)
[2018-01-21] MEDS: PROPRANOLOL HCL 10 MG TAB PO SCH ×2 (09:35→17:00)
[2018-01-21] MEDS: FUROSEMIDE INJ 10 MG/ML 4 ML VIAL IV SCH ×2 (09:35→20:31)
[2018-01-21] MEDS: VANCOMYCIN 1GM/NS 250 ML 250 ML IV SCH ×2 (09:35→20:32)
[2018-01-21] MEDS: PANTOPRAZOLE SOD 40 MG TABEC PO SCH (09:35)
[2018-01-21] MEDS: PIPER-TAZ 3.375 GM 50 ML IV SCH ×3 (09:35→16:16)
[2018-01-21] MEDS: INSULIN DETEMIR 100 UNIT/ML PEN SQ SCH ×2 (10:05→17:01)
[2018-01-21] MEDS: INSULIN REGULAR, HUMAN 100 UNIT/1 ML 3ML VIAL SQ SCH ×4 (10:05→20:32)
[2018-01-21] MEDS: ENOXAPARIN SOD INJ 40 MG/0.4 ML SYR SC SCH (17:00)
--- NOTE | 2018-01-21 17:50 | Progress Note ---
DATE: January 21, 2018 SUBJECTIVE: Patient states he is feeling much better today. His lower extremity edema is much improved after being given IV diuretics. Overnight, he had no complaints. He was afebrile. He reports feeling much better, and he is able to walk on his left leg now. His swelling of his left ankle is much improved. OBJECTIVE VITAL SIGNS: Temperature is 97.9, pulse 77, respiratory rate 20, blood pressure 160/93, pulse ox 96% on room air. LAB FINDINGS: White count is 3.5, hemoglobin 12, hematocrit is 33, and platelets 42. Coagulation: PT 13, INR 1.1, PTT 33. Chemistries: Sodium 137, potassium 3.4, chloride 102, bicarb 26, anion gap of 12, BUN 21, creatinine 1, glucose 259, calcium 8.5. MICROBIOLOGY: None. IMAGING STUDIES: None. PHYSICAL EXAMINATION GENERAL: Not in acute distress. Alert and oriented x3, cooperative on examination. HEENT: Head: Normocephalic, atraumatic. Eyes: Pupils are equal, round, and reactive to light bilaterally. Extraocular muscles intact bilaterally. NECK: Supple. Good range of motion. THROAT: No evidence of any edema or exudates in the posterior pharynx, has poor dentition. PULMONARY: Clear to auscultation bilaterally. No wheezing, no rales, no rhonchi, no crackles appreciated. CARDIOVASCULAR: Positive S1, S2. No murmurs, rubs, or gallops appreciated. ABDOMEN: Soft, nondistended, nontender to palpation. Bowel sounds present. MUSCULOSKELETAL: Strength is 5/5 throughout. No evidence of any muscular deficit on examination. No weakness appreciated. NEUROLOGIC: Cranial nerves II through XII are grossly intact. No evidence of any neurologic deficits on exam. SKIN: Intact. Warm to touch. Good cap refill. PSYCHIATRIC: Normal affect and mood. EXTREMITIES: He has trace to 1+ pedal edema of bilateral lower extremities. IMPRESSION 1. Left ankle cellulitis with swelling, now improving. 2. Type-2 diabetes. 3. Hypertension. 4. Morbid obesity. 5. History of ankle left transmalleolar fixation performed in June 2017. PLAN: At this time, continue with IV antibiotics with vancomycin and Zosyn. The venous Doppler is still pending and has been pending for days now. Continue with Lantus 10 units b.i.d. We are gong to get a vancomycin trough before the next dose. In relation to his swelling, it is much improved. We are going to replace his potassium and continue with IV diuretics. Get a.m. labs. The patient will likely be here another 1 or 2 more days once improved. He has improved tremendously. Job#: [id number]
[2018-01-21] MEDS: GABAPENTIN 100 MG CAP PO SCH (20:32)
[2018-01-22 00:17] VITALS: BP 142/85
[2018-01-22 04:00] VITALS: BP 143/85
[2018-01-22 05:18] LABS: BASOPHILS % 0.9 % (0.0-1.0); EOSINOPHILS # (AUTO) 0.1 (0.0-0.4); HEMATOCRIT 34.9 % (38.2-49.6); HEMOGLOBIN 12.6 g/dL (14.0-18.0); LYMPHOCYTES # (AUTO) 1.2 (1.0-3.2); LYMPHOCYTES % 34.3 % (18.0-39.1); MEAN CORPUSCULAR HEMOGLOBIN 33.1 pg (28-32); MEAN CORPUSCULAR HGB CONC 36.1 g/dL (31-35); MEAN CORPUSCULAR VOLUME 91.6 fL (81-99); MONOCYTES # (AUTO) 0.3 (0.2-0.8); MONOCYTES % 9.8 % (4.4-11.3); NEUTROPHILS # (AUTO) 1.8 (2.1-6.9); NEUTROPHILS % 50.7 % (38.7-80.0); RED BLOOD COUNT 3.81 x10e6/uL (4.3-5.7)
[2018-01-22 05:20] LABS: PLATELET COUNT 48 x10e3/uL (140-360)
[2018-01-22 05:34] LABS: ANION GAP 12.4 mmol/L (8-16); BLOOD UREA NITROGEN 20 mg/dL (7-26); BUN/CREATININE RATIO 20 (6-25); CALCIUM 8.7 mg/dL (8.4-10.2); CARBON DIOXIDE 25 mmol/L (22-29); CHLORIDE 106 mmol/L (98-107); EST GLOMERULAR FILTRATION RATE > 60 ML/MIN (60-); GLUCOSE 202 mg/dL (74-118); POTASSIUM 3.4 mmol/L (3.5-5.1); SODIUM 140 mmol/L (136-145)
[2018-01-22] MEDS: PANTOPRAZOLE SOD 40 MG TABEC PO SCH (07:30)
[2018-01-22] MEDS: INSULIN REGULAR, HUMAN 100 UNIT/1 ML 3ML VIAL SQ SCH ×3 (07:30→16:30)
[2018-01-22 07:51] VITALS: BP 141/90
[2018-01-22] MEDS: PIPER-TAZ 3.375 GM 50 ML IV SCH ×3 (08:00→16:00)
[2018-01-22] MEDS: INSULIN DETEMIR 100 UNIT/ML PEN SQ SCH ×2 (09:00→17:00)
[2018-01-22] MEDS: VANCOMYCIN 1GM/NS 250 ML 250 ML IV SCH (09:00)
[2018-01-22] MEDS: PROPRANOLOL HCL 10 MG TAB PO SCH ×2 (09:00→17:00)
[2018-01-22 11:00] VITALS: BP 130/96
[2018-01-22 16:00] VITALS: BP 148/97
[2018-01-22] MEDS: ENOXAPARIN SOD INJ 40 MG/0.4 ML SYR SC SCH (17:00)
--- NOTE | 2018-01-22 22:00 | Consultation ---
DATE OF CONSULTATION: January 21, 2018 REQUESTING PHYSICIAN: Dr. Alvin Bassett SERVICE: Hematology-oncology. REASON FOR CONSULTATION: Evaluation and management of patient with pancytopenia, specifically thrombocytopenia. HISTORY OF PRESENTING ILLNESS: Mr. Hussein is a very pleasant 57-year-old gentleman with complicated past medical history including known history of diabetes mellitus, hypertension, hyperlipidemia, diabetic neuropathy, and liver cirrhosis secondary to heavy alcohol drinking, admitted through emergency department due to the lower extremity swelling and cellulitis. He has been started on antibiotic. Hematology-oncology has been consulted to assist with the management, specifically thrombocytopenia. Presently, he is lying comfortably, not in acute distress, breathing normally. Denies any nausea, vomiting, fever, chills, headache, blurring of vision. PAST MEDICAL HISTORY: 1. Hypertension. 2. Hyperlipidemia. 3. Diabetes mellitus. 4. Diabetic neuropathy. 5. Liver cirrhosis due to alcohol abuse. PAST SURGICAL HISTORY: 1. Chronic venous stasis of bilateral lower extremities. 2. 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 FAMILY HISTORY: Hypertension and diabetes mellitus. ALLERGIES: NO KNOWN DRUG ALLERGIES. CURRENT MEDICATIONS: Reviewed and as per electronic medical record. REVIEW OF SYSTEMS: Fourteen-point review of systems negative except as mentioned above in history of presenting illness. PHYSICAL EXAMINATION: VITAL SIGNS: Reviewed and as per electronic medical record. HEENT: PERRLA. Extraocular movements intact. Head atraumatic, normocephalic. NECK: Supple. CVS: S1 and S2 audible. RESPIRATORY: Decreased bilateral air entry. ABDOMEN: Soft. Positive bowel sounds. EXTREMITIES: Positive edema. NEURO: Patient is alert, awake. LABORATORY DATA: Reviewed including white cell count of 3.1, hemoglobin 12.6, hematocrit of 35, platelets of 48,000. ASSESSMENT AND PLAN: Mr. Hussein is a very pleasant 57-year-old gentleman with complicated past medical history including known history of liver cirrhosis, admitted through the emergency department due to lower extremity cellulitis. He has been started on intravenous antibiotic. He was noted to have pancytopenia, specifically severe thrombocytopenia. I have reviewed the records. Overall, it appears that cause of pancytopenia is liver cirrhosis. However, need to be closely monitored, and depending on the trend, will provide further recommendation. At this point, will closely monitor. If in case, he goes home, follow up with outpatient. Job#: [id number]
--- NOTE | 2018-01-23 00:15 | Discharge Summary ---
DISCHARGE DIAGNOSES 1. Left ankle cellulitis, now resolved. 2. Type-2 diabetes. 3. Hypertension. . 4. Morbidly obese. 5. History of ankle left transmalleolar fixation, performed in June 2017. CONSULTANTS: None. VITAL SIGNS: Temperature 97.6, pulse 71, respiratory rate is 20, blood pressure 130/96, pulse ox 96% on room air. LAB FINDINGS: Show a white count 3.4, hemoglobin 12.6, hematocrit is 34.9, his platelet count was 48, and we discussed this with him, he needs to follow up as an outpatient with his primary to get a referral to hematology. Coagulation, PT 13.8, PTT 32.6, INR 1.1. Chemistry sodium 140, potassium 3.4, chloride 106, bicarb 25, anion gap of 12, BUN is 20, creatinine is 1. Vbqtg-gh-thgf glucose 181. Total calcium is 8.7. LFTs are normal and albumin was 2.2. Toxicology screen, vancomycin trough 11.7. MICROBIOLOGY: None. IMAGING STUDIES: Foot x-ray shows marked generalized osteopenia. No definite acute abnormality. There was some cxip-oo-kvbrvxga soft tissue swelling. Ankle x-ray showed some soft tissue swelling. There was evidence of a status post ORIF of the distal fibular and tibial fractures with plate and screw constructs. This was done in the past in June 2017. HOSPITAL COURSE: This is a 57-year-old male, morbidly obese, who comes in with a left ankle swelling and redness and cellulitis. Patient was admitted, started on IV antibiotics. Patient was also given IV diuretics for lower extremity edema. Patient improved throughout the hospital course with IV antibiotics. Patient was discharged on oral doxycycline for 14 days. In relation to his edema, it all resolved with IV diuretics. The patient will be discharged on oral diuretics as well. Patient was ready for discharge home. He also has some underlying thrombocytopenia in which I discussed this with him thoroughly with using a student loan counselor that he needs to follow up with his PCP with a referral to a produce inspector and looking in history here, it seems to be very chronic and not acute. Patient verbalized understanding and agrees with plan of care. On the day of discharge, vital signs stable, labs reviewed and stable. Patient was seen, evaluated, and examined thoroughly on the day of discharge, no other complaints. Patient verbalized understanding and agreed with plan of care. To follow up accordingly as an outpatient with the primary care physician in 1 week. He needs to follow up with a produce inspector as an outpatient for further management and care. MEDICATIONS: See med reconciliation form. Also including doxycycline 1 capsule p.o. b.i.d. for 14 days. DISPOSITION: Home. CONDITION: Stable. DIET: Heart healthy. FOLLOWUP: Primary care physician in 1 week with a referral to a produce inspector within 1 week. In the event of any worsening symptoms, patient was asked to come back to the ED for further evaluation. Discharge summary took greater than 35 minutes. Job#: [id number] CQ
== END 2018-01-22 18:54 | disposition home or self-care (01) | DRG 603 ==
LOC: ER 15:42 → OBSVTOIN 20:04 → ERHOLD 20:04 → IMCU 21:59 → MED/SURG3 01-20 23:15
PROVIDERS: ADMIT Internal Medicine; ATTEND Internal Medicine
DX: L03.116 Cellulitis of left lower limb (principal); D69.3 Immune thrombocytopenic purpura; D61.818 Other pancytopenia; K70.30 Alcoholic cirrhosis of liver without ascites; I10 Essential (primary) hypertension; E78.5 Hyperlipidemia, unspecified; E11.42 Type 2 diabetes mellitus with diabetic polyneuropathy; Z83.3 Family history of diabetes mellitus; Z82.49 Family history of ischemic heart disease and other diseases of the circulatory system; Z89.431 Acquired absence of right foot; E66.01 Morbid (severe) obesity due to excess calories; Z68.33 Body mass index [BMI] 33.0-33.9, adult; M85.80 Other specified disorders of bone density and structure, unspecified site
CPT/HCPCS: 36415; 80048; 80053; 80202; 82948; 83605; 85025; 85610; 85730; 93971; 96367; 96372; 99284; J1650; J1940; J2543; J3370; J7050

== ENCOUNTER → 2018-08-15 | Day surgery (SDC) | payer OTHER, MEDICARE ==
[2018-08-14 09:45] LABS: BASOPHILS % 0.8 % (0.0-1.0); EOSINOPHILS # (AUTO) 0.2 (0.0-0.4); HEMATOCRIT 37.7 % (38.2-49.6); HEMOGLOBIN 13.5 g/dL (14.0-18.0); LYMPHOCYTES # (AUTO) 1.1 (1.0-3.2); MEAN CORPUSCULAR HEMOGLOBIN 33.4 pg (28-32); MEAN CORPUSCULAR HGB CONC 35.8 g/dL (31-35); MEAN CORPUSCULAR VOLUME 93.3 fL (81-99); MONOCYTES # (AUTO) 0.4 (0.2-0.8); MONOCYTES % 9.9 % (4.4-11.3); NEUTROPHILS # (AUTO) 2.1 (2.1-6.9); RED BLOOD COUNT 4.04 x10e6/uL (4.3-5.7); RED CELL DISTRIBUTION WIDTH 13.8 % (11.7-14.4)
[2018-08-14 09:55] LABS: ALANINE AMINOTRANSFERASE 22 IU/L (0-55); ALBUMIN 2.1 g/dL (3.5-5.0); ALBUMIN/GLOBULIN RATIO 0.5 (0.8-2.0); ALKALINE PHOSPHATASE 174 IU/L (40-150); ANION GAP 7.7 mmol/L (8-16); BLOOD UREA NITROGEN 18 mg/dL (7-26); BUN/CREATININE RATIO 18 (6-25); CALCIUM 8.4 mg/dL (8.4-10.2); CARBON DIOXIDE 28 mmol/L (22-29); CHLORIDE 103 mmol/L (98-107); EST GLOMERULAR FILTRATION RATE > 60 ML/MIN (60-); GLUCOSE 138 mg/dL (74-118); POTASSIUM 3.7 mmol/L (3.5-5.1); SODIUM 135 mmol/L (136-145)
[2018-08-14 10:01] LABS: PLATELET COUNT 41 x10e3/uL (140-360)
[2018-08-14 10:09] LABS: INR 1.03
[2018-08-14 10:31] LABS: PARTIAL THROMBOPLASTIN TIME 35.3 seconds (23.8-35.5)
[2018-08-14 11:13] LABS: EOSINOPHILS % (MANUAL) 3 % (0-7); LYMPHOCYTES % (MANUAL) 35 % (19-48); MONOCYTES % (MANUAL) 8 % (3.4-9.0); NEUTROPHILS % (MANUAL) 54 % (40-74); PLATELET ESTIMATE MODERATELY DECREASED; PLATELET MORPHOLOGY COMMENT NORMAL
[2018-08-14 11:14] LABS: RBC MORPHOLOGY COMMENT NORMAL
[~2018-08-15] MED LIST changes: +ALBUTEROL SULF 0.083% NEB SOLN 3 ML NEB ONE; +FENTANYL CITRATE/PF 100MCG/2 ML INJ ONE; +HUMALOG MI100 UNIT/4 SQ; +LISINOPRIL10 MG PO; +MIDAZOLAM HCL 2 MG/2 ML VIAL ONE; +PROPOFOL IV EMULSION 10 MG/ML 50 ML VIAL ONE; +SIMVASTATIN20 MG PO; +TRESIBA SC; +VITAMIN D1000 UNI1 PO
[2018-08-15 09:06] VITALS: BP 143/87
== END | disposition home or self-care (01) ==
LOC: OR 05:02
PROVIDERS: ATTEND Internal Medicine Gastroenterology
DX: K70.30 Alcoholic cirrhosis of liver without ascites (principal); I85.10 Secondary esophageal varices without bleeding; K29.70 Gastritis, unspecified, without bleeding; I86.4 Gastric varices; B37.81 Candidal esophagitis; K44.9 Diaphragmatic hernia without obstruction or gangrene; K76.6 Portal hypertension; K31.89 Other diseases of stomach and duodenum; K21.9 Gastro-esophageal reflux disease without esophagitis; E83.51 Hypocalcemia; K59.00 Constipation, unspecified; I10 Essential (primary) hypertension; E11.9 Type 2 diabetes mellitus without complications; R06.02 Shortness of breath; Z01.810 Encounter for preprocedural cardiovascular examination; Z01.812 Encounter for preprocedural laboratory examination; Z79.4 Long term (current) use of insulin; Z68.37 Body mass index [BMI] 37.0-37.9, adult
CPT/HCPCS: 36415 ×2; 43239; 80053; 82948; 85025; 85610; 85730; 93005; J2250; J2704; 43235

== ENCOUNTER 2018-09-01 18:58 | Emergency (ER) | payer OTHER, MEDICARE ==
[~2018-09-01] VITALS: Ht 167.6 cm; Wt 93.4 kg
[~2018-09-01 18:58] MED LIST changes: -ALBUTEROL SULF 0.083% NEB SOLN 3 ML NEB ONE; -FENTANYL CITRATE/PF 100MCG/2 ML INJ ONE; -MIDAZOLAM HCL 2 MG/2 ML VIAL ONE; -PROPOFOL IV EMULSION 10 MG/ML 50 ML VIAL ONE
[2018-09-01] MEDS ORDERED: FUROSEMIDE 20 MG TAB PO ONE (21:15)
--- NOTE | 2018-09-01 23:11 | Diagnostic Imaging Report ---
Examination: Single AP view of the chest. COMPARISON: Portable chest 07/07/2017 INDICATION: Shortness of breath IMPRESSION: 1. Lines and Tubes: None 2. Low lung volumes. Bibasilar atelectatic changes. No definite consolidation or effusion. 3 mm metallic appearing density projects in the lateral right midlung. 3. Mild prominence of the cardiac silhouette, partly due to AP projection and low lung volumes. Central pulmonary venous crowding. 4. No acute bony abnormalities. Signed by: Dr. Francisco Hare M.D. on 09/01/2018 11:08 PM
[2018-09-01] MEDS ORDERED: LASIX40 MG PO (23:17)
[2018-09-02 00:13] VITALS: BP 171/106
== END 2018-09-02 00:14 | disposition home or self-care (01) ==
LOC: ER 18:58
DX: R06.09 Other forms of dyspnea (principal); I50.22 Chronic systolic (congestive) heart failure
CPT/HCPCS: 71045; 99283

== ENCOUNTER 2018-09-12 14:52 | Inpatient (IN) | payer MEDICARE ==
[~2018-09-12] VITALS: Ht 167.6 cm; Wt 105.9 kg
[~2018-09-12 14:52] MED LIST changes: +LASIX40 MG PO
[2018-09-12 16:30] LABS: CLARITY,URINE SL CLOUDY (CLEAR); COLOR,URINE YELLOW (YELLOW)
[2018-09-12 16:31] LABS: BILIRUBIN,URINE NEGATIVE (NEGATIVE); KETONES,URINE NEGATIVE (NEGATIVE); LEUKOCYTE ESTERASE ,URINE NEGATIVE (NEGATIVE); NITRITE,URINE NEGATIVE (NEGATIVE); PROTEIN,URINE DIPSTICK 2+ (NEGATIVE); URINE UROBILINOGEN 4 mg/dL (0.2 - 1)
[2018-09-12 16:41] LABS: BACTERIA,URINE MODERATE /HPF; HYALINE CASTS 0-1 (0-1); MUCUS,URINE FEW (RARE)
[2018-09-12 16:55] LABS: BASOPHILS % 0.5 % (0.0-1.0); EOSINOPHILS # (AUTO) 0.1 (0.0-0.4); EOSINOPHILS % 3.2 % (0.0-6.0); HEMATOCRIT 36.4 % (38.2-49.6); HEMOGLOBIN 12.6 g/dL (14.0-18.0); LYMPHOCYTES % 26.5 % (18.0-39.1); MEAN CORPUSCULAR HEMOGLOBIN 33.4 pg (28-32); MEAN CORPUSCULAR HGB CONC 34.6 g/dL (31-35); MEAN CORPUSCULAR VOLUME 96.6 fL (81-99); MONOCYTES # (AUTO) 0.4 (0.2-0.8); MONOCYTES % 10.8 % (4.4-11.3); NEUTROPHILS # (AUTO) 2.2 (2.1-6.9); RED BLOOD COUNT 3.77 x10e6/uL (4.3-5.7); RED CELL DISTRIBUTION WIDTH 15.3 % (11.7-14.4)
--- NOTE | 2018-09-12 16:58 | Diagnostic Imaging Report ---
Exam: Bilateral ribs with chest radiograph History: Fall one month ago, dyspnea, pain to left ribs Comparison: Chest radiograph 07/07/2017; chest radiograph 09/01/2018 Findings: Chest: The lungs are hypoinflated and without focal consolidation, pleural effusion, or pneumothorax. Vascular crowding in the lung bases. Stable cardiomediastinal contour with tortuosity of the thoracic aorta. No overt pulmonary edema. Ribs: No acute, displaced fracture. Remote fracture deformities of the left 10th, 11th, and 12th ribs posteriorly. No destructive lesion. Impression: Healed fracture deformities of the left 10th through 12th ribs. No acute displaced rib fracture or pneumothorax. Signed by: Dr. Bridger Sotelo M.D. on 09/12/2018 4:54 PM
[2018-09-12 17:02] LABS: PLATELET COUNT 55 x10e3/uL (140-360)
[2018-09-12 17:04] LABS: INR 0.98; PROTHROMBIN TIME 13.5 seconds (11.9-14.5)
[2018-09-12 17:05] LABS: PARTIAL THROMBOPLASTIN TIME 33.6 seconds (23.8-35.5)
[2018-09-12 17:14] LABS: ALANINE AMINOTRANSFERASE 27 IU/L (0-55); ALBUMIN/GLOBULIN RATIO 0.5 (0.8-2.0); ALKALINE PHOSPHATASE 195 IU/L (40-150); ANION GAP 8.9 mmol/L (8-16); BLOOD UREA NITROGEN 23 mg/dL (7-26); BUN/CREATININE RATIO 23 (6-25); CALCIUM 8.3 mg/dL (8.4-10.2); CARBON DIOXIDE 27 mmol/L (22-29); CHLORIDE 102 mmol/L (98-107); CREATINE KINASE 347 IU/L (30-200); CREATININE, SERUM 1.01 mg/dL (0.72-1.25); EST GLOMERULAR FILTRATION RATE > 60 ML/MIN (60-); GLUCOSE 311 mg/dL (74-118); POTASSIUM 3.9 mmol/L (3.5-5.1); SODIUM 134 mmol/L (136-145)
[2018-09-12] MEDS ORDERED: FUROSEMIDE INJ 10 MG/ML 4 ML VIAL IV ONE (17:30)
[2018-09-12] MEDS ORDERED: METOPROLOL TARTRATE INJ 1 MG/ML VIAL IV ONE (17:30)
[2018-09-12] MEDS ORDERED: SPIRONOLACTONE 25 MG TAB PO ONE (17:30)
[2018-09-12 17:37] LABS: MAGNESIUM 1.8 MG/DL (1.3-2.1); PHOSPHORUS 3.5 MG/DL (2.3-4.7)
[2018-09-12 17:58] LABS: THYROID STIMULATING HORMONE 1.967 uIU/mL (0.350-4.940)
[2018-09-12] MEDS ORDERED: SODIUM CHLORIDE FLUSH 10 ML SYR INJ PRN (18:15)
[2018-09-12] MEDS ORDERED: LACTULOSE SYRUP 20 GM/30 ML UDC PO ONE (18:15)
[2018-09-12] MEDS ORDERED: ONDANSETRON HCL INJ 2MG/ML 2ML 2 MG/ML VIAL IV PRN (18:15)
--- NOTE | 2018-09-12 19:06 | NUR ---
Report given to Colton material handler 2nd shift nurse. Pt is in no acute distress at this time.
[2018-09-12 19:45] VITALS: BP 139/89
[2018-09-12 20:10] VITALS: BP 139/89
--- NOTE | 2018-09-12 20:10 | NUR ---
PT ARRIVED TO THE UNIT FROM ER IN A STRETCHER WITH C/O ASCITES, SOB AND ABDOMEN PAIN..ASSESSMENT DONE.AAOX3.AMBULATES WITH CANE.TELE #4 PLACED NOTED SR.IV #20 TO LAC.PATENT.NO RESP.DISTRESS.NO PAIN VOICED RIGHT NOW.ORIENTED TO THE UNIT.BED LOCKED AND IN LOWEST POSITION.PHONE AND CALL LIGHT WITHIN REACH.INSTRUCTED TO CALL FOR ASSISTANCE NEEDED.BLOOD SUGAR NOTED 184.NOTIFIED TO MD PRESCOTT.NO NEW ORDERS RECEIVED.IR CONSULTS TO BE DONE TOMORROW.PROVIDE SNACKS .KEEP MONITOR THE PT.
[2018-09-12 21:00] VITALS: BP 139/89
[2018-09-12] MEDS ORDERED: FUROSEMIDE INJ 10 MG/ML 4 ML VIAL IV SCH (21:00)
--- NOTE | 2018-09-12 23:15 | NUR ---
PT SIGNED THE CONSENT.ADVISED NPO AFTER 12 MN.VERBALIZED UNDERSTANDING.
[2018-09-13] VITALS (8 sets, daily range): BP systolic 127–167; BP diastolic 74–102
[2018-09-13 05:44] LABS: BASOPHILS % 0.3 % (0.0-1.0); EOSINOPHILS # (AUTO) 0.1 (0.0-0.4); EOSINOPHILS % 3.4 % (0.0-6.0); HEMATOCRIT 31.4 % (38.2-49.6); LYMPHOCYTES # (AUTO) 1.1 (1.0-3.2); LYMPHOCYTES % 34.7 % (18.0-39.1); MEAN CORPUSCULAR HEMOGLOBIN 33.5 pg (28-32); MEAN CORPUSCULAR VOLUME 95.7 fL (81-99); MONOCYTES # (AUTO) 0.4 (0.2-0.8); MONOCYTES % 12.6 % (4.4-11.3); NEUTROPHILS # (AUTO) 1.6 (2.1-6.9); RED BLOOD COUNT 3.28 x10e6/uL (4.3-5.7); RED CELL DISTRIBUTION WIDTH 14.9 % (11.7-14.4)
[2018-09-13 05:59] LABS: INR 1.09; PLATELET COUNT 40 x10e3/uL (140-360); PROTHROMBIN TIME 14.6 seconds (11.9-14.5)
[2018-09-13 06:00] LABS: PARTIAL THROMBOPLASTIN TIME 35.5 seconds (23.8-35.5)
[2018-09-13 06:17] LABS: ALANINE AMINOTRANSFERASE 24 IU/L (0-55); ALBUMIN 1.7 g/dL (3.5-5.0); ALBUMIN/GLOBULIN RATIO 0.5 (0.8-2.0); ALKALINE PHOSPHATASE 145 IU/L (40-150); ANION GAP 8.2 mmol/L (8-16); BLOOD UREA NITROGEN 20 mg/dL (7-26); BUN/CREATININE RATIO 23 (6-25); CALCIUM 8.1 mg/dL (8.4-10.2); CARBON DIOXIDE 26 mmol/L (22-29); CHLORIDE 108 mmol/L (98-107); CREATININE, SERUM 0.86 mg/dL (0.72-1.25); EST GLOMERULAR FILTRATION RATE > 60 ML/MIN (60-); GLUCOSE 130 mg/dL (74-118); POTASSIUM 3.2 mmol/L (3.5-5.1); SODIUM 139 mmol/L (136-145)
--- NOTE | 2018-09-13 06:37 | NUR ---
CALLED DR. PRESCOTT AT THIS TIME AND WENT STRAIGHT TO VOICEMAIL. LEFT A VOICEMAIL TO DR. PRESCOTT REGARDING PT CRITICAL PLATELET LEVEL AND POTASSIUM OF 3.2. MD ALSO MADE AWARE OF PARACENTESIS SCHEDULED TODAY. AWAITING CALL BACK.
[2018-09-13 07:00] LABS: PLATELET ESTIMATE MODERATELY DECREASED; PLATELET MORPHOLOGY COMMENT NORMAL
[2018-09-13 07:01] LABS: RBC MORPHOLOGY COMMENT NORMAL
--- NOTE | 2018-09-13 07:18 | NUR ---
report given to owen BREEN
[2018-09-13] MEDS ORDERED: DEXTROSE 50% SYRINGE 50 ML IV PRN (09:00)
[2018-09-13] MEDS ORDERED: FAMOTIDINE 20 MG/2 ML VIAL IV SCH (09:00)
[2018-09-13] MEDS ORDERED: TRAMADOL HCL 50 MG TAB PO PRN (09:00)
[2018-09-13] MEDS ORDERED: PROPRANOLOL HCL 40 MG TAB PO SCH (09:00)
[2018-09-13] MEDS ORDERED: POTASSIUM CHLORIDE 10MEQ EA PO NR (09:30)
[2018-09-13] MEDS: INSULIN LISPRO SC SCH ×2 (11:30→16:30)
[2018-09-13] MEDS: INSULIN LISPRO 100 UNIT/1 ML 3ML VIAL SQ SCH ×3 (11:30→21:30)
[2018-09-13] MEDS: INSULIN LISPRO PROTAMINE SC SCH ×2 (11:30→16:30)
[2018-09-13] MEDS: SPIRONOLACTONE 25 MG TAB PO SCH (12:15)
[2018-09-13] MEDS: PROPRANOLOL HCL 10 MG TAB PO SCH ×2 (12:15→17:34)
[2018-09-13] MEDS: PANTOPRAZOLE SOD 40 MG TABEC PO SCH (12:16)
[2018-09-13] MEDS: FUROSEMIDE INJ 10 MG/ML 4 ML VIAL IV SCH ×2 (12:16→17:36)
[2018-09-13] MEDS ORDERED: PNEUMOCOCCAL VACCINE POLYVALENT 23 MCG/0.5 ML VIAL IM NR (13:00)
[2018-09-13] MEDS ORDERED: INFLUENZA VIRUS VAC SPLIT INJ 0.5 ML SYR IM NR (13:00)
--- NOTE | 2018-09-13 14:45 | NUR ---
CASE MANAGEMENT ASSESSMENT Filler Shredding Machine Loader to bedside to discuss plan of care with patient/family. CM/SW role and care transitions discussed. Anticipated discharge plan discussed along with duration of care. CM/SW discussed patients right to make decisions in care. CM/SW work hours given. Patient lives: with his son Admit/Transfer: thru ED Hospital/ER visits since last admit: 1 ED visit POA/Emergency contact: Bev Hussein [phone] Current/Previous Home Health: none PCP/Follow-up Care: Dr. Gordillo; advised pt to follow up with MD within 5 days of discharge. Current/Previous DME: has cane and walker Medications (referring to index hospitalization or the first time you were in the hospital) a. Were changes made in your medications when you were in the hospital on [date of index hospitalization]? n/a b. Did you understand the changes? n/a c. Were you able to obtain your new medications right away? n/a d. Were you able to take your medications like the doctor wanted you to? n/a e. Did the hospital give you an accurate, easy to understand list of medications when you left? n/a Scale of 1-10 how comfortable does patient feel with disease management in outpatient settin Other Services: none Employment Status: disabled Areas of Concerns: ascites, anasarca Referral Needs: may need home health Education Needs: medical management IMM/PHELAN given and signed (if applicable): none at this time Goal for discharge: home CM/SW left business card at the bedside with contact information. Name and number was also written on the patients whiteboard. Patient verbalized understanding of discussion. CM will follow-up with ongoing discharge and transition of care needs.
--- NOTE | 2018-09-13 16:03 | NUR ---
Nutrition Screen Note RD Recommendation for Physician: -Rec adding low sodium to ADA diet as medically appropriate -Recommend M/ with thiamine, folic acid supplementation Plan of Care: RD following, monitoring for tolerance and adequacy Nutrition reason for involvement: -Diagnosis- Cirrhosis Primary Diagnose(s): Anasarca, ascites d/t alcoholic cirrhosis PMH: HTN, HLD, DM, cirrhosis of liver x 4 years Ht: 66 in Wt: 245 lb BMI: 39.5 kg/m2 IBW: [address] Assessment: 09/13: 57 YOM admitted for anasarca, ascites d/t alcoholic cirrhosis. Pt speaks Montserratian only-used workday consultant for visit. Pt reports a good appetite prior to admission and here within the hospital. Pt was NPO at time of visit. Diet has been advanced to ADA for dinner today. Anticipate good PO intake. Pt denied weight loss and stated he had some weight gain most likely d/t fluid. Pt had no c/o N/V or any chewing or swallowing issues. Pt stated he had some constipation, was given medicine to relieve it which then resulted in diarrhea. Asked pt if he would like education on his diet, pt denied education and stated his DrSage tells him how to eat. Pt had no other questions or concerns. Chart reviewed. Labs and meds reviewed. Will continue to monitor. Current Diet: ADA diet Malnutrition Evaluation (09/13) The patient does not meet criteria for a specified degree of malnutrition at this time. Will re-evaluate at follow-up as appropriate. Diet Education Needs Assessment: Diet education indicated, pt denied education. Nutrition Care Level: low Signed: Octavia Jaimes, MS, RD, LD
[2018-09-13] MEDS ORDERED: ALBUMIN 25% 25GM 100ML 0.25 GM/ML BTL IV PRN ×2 (17:15)
[2018-09-13] MEDS ORDERED: LACTULOSE SYRUP 20 GM/30 ML UDC PO PRN (19:15)
--- NOTE | 2018-09-13 19:19 | NUR ---
WALKING ROUNDS PERFORMED, RECEIVED PT LAYING SEMI FOWLERS IN BED, AAOX3, RR EVEN AND NON-LABORED, ON RA. NO S/SX OF DISTRESS NOTED. LEFT PT LAYING SEMI FOWLERS IN BED, BED IN LOW LOCKED POSITION, SIDE RAILS UPX2, CALL LIGHT AND PHONE WITHIN REACH. FAMILY AT BEDSIDE.
[2018-09-13 20:13] LABS: FERRITIN 132.67 ng/mL (21.81-274.66)
[2018-09-13] MEDS ORDERED: GABAPENTIN 300 MG CAP PO SCH (21:00)
[2018-09-13] MEDS: TRESIBA 40 UNIT SC SCH (21:00)
--- NOTE | 2018-09-13 21:19 | Diagnostic Imaging Report ---
EXAMINATION: CT of the abdomen and pelvis with contrast. TECHNIQUE: Helical CT images of the abdomen and pelvis were performed from the lung bases to the lesser trochanters after the intravenous administration of 150 cc of Isovue 300 and the oral administration of none. Coronal and sagittal reformatted images were obtained.Dose modulation, iterative reconstruction, and/or weight based adjustment of the mA/kV was utilized to reduce the radiation dose to as low as reasonably achievable. COMPARISON: None. CLINICAL HISTORY:Ascites DISCUSSION: ABDOMEN/PELVIS: LOWER THORAX:Unremarkable. HEPATOBILIARY: Cirrhotic liver morphology. No focal mass. No intra-or extrahepatic biliary ductal dilation. Calcified gallstones SPLEEN: Splenomegaly 16 cm. PANCREAS: No focal masses or ductal dilatation. ADRENALS: No adrenal nodules. KIDNEYS/URETERS: No hydronephrosis, stones, or solid mass lesions. PELVIC ORGANS/BLADDER: The bladder is normal. PERITONEUM/RETROPERITONEUM: Abdominal ascites. LYMPH NODES: No intra-abdominal, retroperitoneal, pelvic or inguinal lymphadenopathy. VESSELS: Gastroesophageal varices. Main portal vein contains hypodense material. GI TRACT: No distention or wall thickening. BONES AND SOFT TISSUE: No bony destructive lesions. No soft tissue abnormalities. IMPRESSION: Cirrhotic liver morphology with portal hypertension manifested by mild ascites, splenomegaly, and gastroesophageal varices. Probable partial portal vein thrombosis. Signed by: Dr. Dorian Remhan M.D. on 09/13/2018 9:16 PM
[2018-09-13] MEDS: GABAPENTIN 100 MG CAP PO SCH (21:30)
--- NOTE | 2018-09-13 21:34 | NUR ---
[facility] CONSENT FOR PLATELET TRANSFUSION OBTAINED.
[2018-09-13] MEDS ORDERED: THERA TEARS1 EAC1 OU (22:33)
[2018-09-13] MEDS ORDERED: CITRACAL + D E1 EACH PO (22:33)
[2018-09-13] MEDS ORDERED: SIMVASTATIN20 MG PO (22:33)
[2018-09-13] MEDS ORDERED: IMPRIMIS OU (22:33)
[2018-09-13] MEDS ORDERED: VITAMIN D250000 UNIT PO (22:33)
[2018-09-13] MEDS ORDERED: IOPAMIDOL 370 MG/ML 200 ML INFUS..BTL INJ ONE (22:35)
[2018-09-13] MEDS ORDERED: SODIUM CHLORIDE 0.9% 50ML 50 ML ONE (22:35)
--- NOTE | 2018-09-13 22:38 | NUR ---
FAMILY PROVIDED PT'S HOME MEDICATIONS. HOME MEDICATION MED REC UPDATED.
[2018-09-14] VITALS (8 sets, daily range): BP systolic 136–166; BP diastolic 75–93
--- NOTE | 2018-09-14 00:21 | Consultation ---
DATE OF CONSULTATION: HISTORY OF PRESENT ILLNESS: Mr. Hussein brought himself to the emergency room after he in the past couple of weeks been noticing increasing in his weight, increasing in abdominal girth. The patient was admitted for workup of ascites. He used to be a heavy use of alcohol, but he has stopped over the past 3 years. He has no aware of previous liver injury. In addition to the new onset of ascites and past history of heavy alcohol intake, he has history of diabetes, hypertension, and obesity. As far as other complaint beside the ascites, he is constipated. He is having some mild abdominal discomfort in the left lower quadrant probably due to the constipation. He is complaining of heartburn, acid reflux, pain with urination, and he is not sure when the last time colon cancer screening was done. From discussion with the patient, apparently he never had GI workup for his abnormal liver finding. PAST SURGICAL HISTORY: Venous stasis of the left extremity, amputation of some toes from his both feet. ALLERGIES: NONE. FAMILY HISTORY: Consists of diabetes and hypertension. SOCIAL HISTORY: He does not smoke, quit drinking 3 years ago. PHYSICAL EXAMINATION: GENERAL: Awake, alert, and oriented, only speaks Sami. HEENT: Normal sclerae. NECK: Supple. No nodes. LUNGS: Clear to auscultation. HEART: Regular rate and regular rhythm. ABDOMEN: Distended. No acute sign. Bowel sounds are present. No masses. EXTREMITIES: 2+ both lower extremity with severe venous stasis. LABORATORY DATA: White cell count 3.2, hemoglobin 11, hematocrit 31, platelet 40. MCV 95. PT and PTT normal. TSH normal. AST 38, ALT normal, total protein normal, alk phos 195. BUN and creatinine were normal. Sodium is 139, potassium is 3.2 and was replaced. Total protein 5.2, albumin 3.5. Urinalysis show increase in rbc's. Stool positive for blood. IMPRESSION: Numerous medical complaints. The major one is ascites as a new onset presumed due to the previous history of heavy alcohol use. However, need full workup. We will order ultrasound-guided paracentesis. We will send for large volume paracentesis and also 25 g of albumin to be given for each 3 liter removed. We will order ascitic fluid cytology, cell count and differential, culture and sensitivity, albumin, and total protein. We will increase his aldactone to 100 mg a day. Stockroom Coordinator career development counselor for 2 g salt diet. Further complaint of anemia, I am ordering iron study, B12, RBC, folate, reticulocyte count. The patient does not recall when was the last time he has colonoscopy. Apparently, he did not have any upper GI tract evaluation, both will be ordered at some point after clinically the patient improved. For the blood in the stool, this will be evaluated when the colonoscopy is done. Currently, no signs of active bleeding. Hemoglobin and hematocrit are stable. For his constipation, I will put him on lactulose. For his heartburn, we will continue the Protonix and we will schedule upper endoscopy and for the microscopic hematuria, I am ordering repeat urinalysis and urine culture. If they are still abnormal and no sign of urinary tract infection, we will ask for Urology opinion. Jackeline Ma MD RD/ELLEL /[id number]
[2018-09-14] MEDS: FUROSEMIDE INJ 10 MG/ML 4 ML VIAL IV SCH ×3 (01:20→21:51)
--- NOTE | 2018-09-14 03:19 | NUR ---
NOTIFIED BY LETTUCE CUTTER NEED FOR TELEMETRY BATTERY CHANGE. BATTERY CHANGED AT THIS TIME.
[2018-09-14 06:02] LABS: BASOPHILS % 0.5 % (0.0-1.0); EOSINOPHILS # (AUTO) 0.2 (0.0-0.4); EOSINOPHILS % 4.1 % (0.0-6.0); HEMATOCRIT 33.3 % (38.2-49.6); HEMOGLOBIN 11.6 g/dL (14.0-18.0); LYMPHOCYTES # (AUTO) 1.3 (1.0-3.2); LYMPHOCYTES % 35.1 % (18.0-39.1); MEAN CORPUSCULAR HEMOGLOBIN 33.5 pg (28-32); MEAN CORPUSCULAR HGB CONC 34.8 g/dL (31-35); MEAN CORPUSCULAR VOLUME 96.2 fL (81-99); MONOCYTES # (AUTO) 0.5 (0.2-0.8); MONOCYTES % 12.3 % (4.4-11.3); NEUTROPHILS # (AUTO) 1.8 (2.1-6.9); RED BLOOD COUNT 3.46 x10e6/uL (4.3-5.7); RED CELL DISTRIBUTION WIDTH 14.9 % (11.7-14.4)
[2018-09-14 06:15] LABS: PLATELET COUNT 47 x10e3/uL (140-360)
[2018-09-14 06:23] LABS: ANION GAP 7.6 mmol/L (8-16); CALCIUM 8.5 mg/dL (8.4-10.2); CARBON DIOXIDE 30 mmol/L (22-29); CHLORIDE 102 mmol/L (98-107); CREATININE, SERUM 1.06 mg/dL (0.72-1.25); EST GLOMERULAR FILTRATION RATE > 60 ML/MIN (60-); GLUCOSE 212 mg/dL (74-118); POTASSIUM 3.6 mmol/L (3.5-5.1); SODIUM 136 mmol/L (136-145)
[2018-09-14 07:30] LABS: BLOOD UREA NITROGEN 23 mg/dL (7-26); BUN/CREATININE RATIO 22 (6-25)
[2018-09-14] MEDS: INSULIN LISPRO 100 UNIT/1 ML 3ML VIAL SQ SCH ×4 (07:30→21:51)
[2018-09-14] MEDS: INSULIN LISPRO SC SCH ×3 (07:30→16:20)
[2018-09-14] MEDS: INSULIN LISPRO PROTAMINE SC SCH ×3 (07:30→16:20)
[2018-09-14 07:55] LABS: PLATELET ESTIMATE MARKEDLY DECREASED; PLATELET MORPHOLOGY COMMENT NORMAL; RBC MORPHOLOGY COMMENT NORMAL
[2018-09-14] MEDS ORDERED: SODIUM CHLORIDE 0.9% 250ML 250 ML ONE (09:14)
[2018-09-14 09:51] LABS: HIV 1&2 AB SCREEN NON-REACTIVE (NONREACTIVE)
--- NOTE | 2018-09-14 11:30 | NUR ---
CALLED Isabel REYES, NOTIFIED HIM THAT PATIENT WAS UNABLE TO RECEIVE PARACENTICIS DUE TO LACK OF FLUID VOLUME IN ABDOMEN, HE STATED OKAY AND ASKED TO GARCIA SURE THAT GI MD WAS INFORMED, CALLED DR. HAMMONDS, VOICEMAIL LEFT FOR DR. HAMMONDS.
[2018-09-14] MEDS: SPIRONOLACTONE 25 MG TAB PO SCH (11:43)
[2018-09-14] MEDS: PANTOPRAZOLE SOD 40 MG TABEC PO SCH (11:43)
[2018-09-14] MEDS: PROPRANOLOL HCL 10 MG TAB PO SCH ×2 (11:44→16:22)
[2018-09-14] MEDS ORDERED: ONDANSETRON HCL 4 MG ORAL DISINTEGRATING TAB PO PRN (12:00)
--- NOTE | 2018-09-14 12:28 | Diagnostic Imaging Report ---
Exam: Limited abdominal ultrasound History: Evaluation prior to paracentesis. Comparison: Abdominal CT dated 09/13/2018 Findings: Scanning in all 4 quadrants of the abdomen reveals a minimal amount of fluid inferior to the liver and in the right lower quadrant. The amount is not amenable for a safe paracentesis. Impression: Limited ultrasound revealing a minimal amount of ascites. Signed by: Dr. Colton Gomez DO on 09/14/2018 12:25 PM
--- NOTE | 2018-09-14 14:14 | NUR ---
RD was consulted for diet education. Nutrition status remains unchanged from yesterday. Nutrition Education Learner(s): pt and daughter Time spent: 10mins Barriers: No barriers identified. Cultural/Language Modifications: Pt speaks Mauritian only; daughter on bedside to translate. Readiness: Acceptance Method: Handouts (Mauritian), explanation Topics: Low sodium diet Understanding/Compliance: Expect good understanding/compliance from pt. Will benefit from reinforcement. All questions have been answered. Signed by Octavia Jaimes, MS, RD, LD
--- NOTE | 2018-09-14 14:29 | NUR ---
CALLED DR. HAMMONDS'S OFFICE REGARDING CANCELLED PARACENTESIS, DUE TO LACK OF ABDOMINAL FLUID, CLEANER STATED THAT SHE WOULD TELL TO THE DOCTOR TO CALL BACK.
--- NOTE | 2018-09-14 14:39 | NUR ---
DR. JAVIER CALLED IVETTE AND SATED THAT HE WOULD COME SEE THE PATIENT.
--- NOTE | 2018-09-14 15:48 | NUR ---
URINE COLLECTED FROM PATIENT, LABELED AND DELIVERED TO LAB FOR UA WITH MICRO EXAM.
[2018-09-14 15:54] LABS: BILIRUBIN,URINE NEGATIVE (NEGATIVE); CLARITY,URINE SL CLOUDY (CLEAR); COLOR,URINE YELLOW (YELLOW); KETONES,URINE NEGATIVE (NEGATIVE); LEUKOCYTE ESTERASE ,URINE NEGATIVE (NEGATIVE); NITRITE,URINE NEGATIVE (NEGATIVE); PROTEIN,URINE DIPSTICK 2+ (NEGATIVE); URINE UROBILINOGEN 1 mg/dL (0.2 - 1)
[2018-09-14 16:11] LABS: BACTERIA,URINE MANY /HPF; EPITHELIAL CELLS,URINE FEW /LPF; MUCUS,URINE FEW (RARE)
--- NOTE | 2018-09-14 18:40 | Progress Note ---
DATE: 09/14/2018 SUBJECTIVE: Mr. Reaves is doing well, stable overall. No change from yesterday. His vitals today; temperature 98 and afebrile, pulse 85, blood pressure 152/92. Several medical issues being followed: 1. End-stage liver disease and ascites. Matter of fact, the ultrasound did not show any significant amount of fluid to be tapped, so in that regard, no paracentesis was done. So, we will keep the patient on his current diuretic dose, we will keep him on low salt diet and we will observe. He had CT scan of the liver and abdomen last night, which shows cirrhotic change of the liver, portal hypertension, and gastroesophageal varices. The patient can be followed for this issue as an outpatient. The sequelae noted on his lab test regarding his cirrhosis is low platelet count of 47. The cirrhosis is most likely due to prior history of alcohol abuse. His HIV is negative and hepatitis profile is still pending. His liver enzymes are normal. 2. The other medical issue we followed is his anemia. The patient's hemoglobin today 11, hematocrit 33. His B12 is normal, ferritin normal, iron saturation normal, percentage reticulocyte count elevated to 4.3, RBC folate is still pending. Nothing to add to anemia workup at this point. This also could be related to his portal hypertension and splenomegaly. 3. The other medical issue we followed is constipation and the patient had a good bowel movement today with some relief of abdominal discomfort after he was given lactulose, so we will maintain him on lactulose. 4. The other medical issue we followed is blood in his stool and the patient will undergo upper and lower endoscopy soon and those two also can be done as an outpatient. 5. The final problem is blood in the urine and I am repeating his urinalysis today, it is still showing blood in urine. We will refer that to the primary care or perhaps urologist. Jackeline Ma MD RD/TREV /[id number]
[2018-09-14] MEDS: GABAPENTIN 100 MG CAP PO SCH (21:51)
[2018-09-14] MEDS: TRESIBA 40 UNIT SC SCH (21:51)
[2018-09-15] VITALS: BP 134/77
[2018-09-15] MEDS: FUROSEMIDE INJ 10 MG/ML 4 ML VIAL IV SCH ×2 (03:13→10:00)
[2018-09-15 04:00] VITALS: BP 131/80
[2018-09-15] MEDS: INSULIN LISPRO 100 UNIT/1 ML 3ML VIAL SQ SCH (07:30)
[2018-09-15] MEDS: INSULIN LISPRO PROTAMINE SC SCH (07:30)
[2018-09-15] MEDS: INSULIN LISPRO SC SCH (07:30)
--- NOTE | 2018-09-15 08:11 | NUR ---
EDUCATED ABOUT IMM, SIGNED, FILED IN CHART, WITH COPY LEFT WITH FAMILY AT BEDSIDE.
[2018-09-15 08:49] VITALS: BP 134/76
[2018-09-15] MEDS: SPIRONOLACTONE 25 MG TAB PO SCH (08:58)
[2018-09-15] MEDS: PANTOPRAZOLE SOD 40 MG TABEC PO SCH (08:58)
[2018-09-15 08:59] VITALS: BP 129/79
[2018-09-15] MEDS: PROPRANOLOL HCL 10 MG TAB PO SCH (08:59)
[2018-09-15] MEDS ORDERED: FUROSEMIDE40 MG PO (09:52)
[2018-09-15] MEDS ORDERED: LACTULOSE20 GM/30 M PO (09:53)
[2018-09-15] MEDS ORDERED: ALDACTONE25 MG PO (09:53)
[2018-09-15] MEDS ORDERED: XIFAXAN550 MG PO (09:54)
--- NOTE | 2018-09-15 10:24 | NUR ---
DISCHARGE INSTRUCTIONS AND PRESCRIPTIONS GIVEN. PT VERBALIZED UNDERSTANDING . IV DC PRESSURE DRESSING APPLIED AND TAPED. PT IS NOW WAITING FOR RIDE HOME
--- NOTE | 2018-09-15 10:53 | NUR ---
pt off unit to home
--- NOTE | 2018-09-16 03:29 | Discharge Summary ---
PRIMARY CARE PHYSICIAN: Dr. Reema Gordillo. CONSULTANTS: Dr. Jackeline Ma. FINAL DIAGNOSES: 1. Severe constipation. 2. Liver cirrhosis associated with alcoholism. The patient has portal hypertension with mild ascites, splenomegaly and gastroesophageal varices without bleeding. Probable partial portal vein thrombosis. 3. Shortness of breath due to fluid overload. SUMMARY: The patient is a 57 years old male, came into the hospital with significant 3+ edema. The patient has also baseline liver cirrhosis secondary to alcoholism. The patient has stopped drinking. His platelet count was 55 to 47,000 and it is stable. He is slightly anemic, hemoglobin and hematocrit of 11.[address] scan as mentioned above. The patient is stable. He did have ultrasound-guided attempt paracentesis. There was not much fluid. He does have splenomegaly, esophageal varices, and so forth. He has been getting IV furosemide along with Aldactone. He tolerated well. We did DC lactulose, for which he responded well as well with a good bowel movement and felt better. At this time, he is stable. His ammonia level was 134. Lactulose is initiated. He is taking 20 g twice a day, and he did respond. The patient is stable, discharged home today. DISCHARGE MEDICATIONS: Lasix 40 mg twice a day, Aldactone 50 mg at noontime, lactulose 20 g twice a day, and rifaximin 550 mg twice a day. The patient to follow up with Dr. Ma for EGD and colonoscopy will be arranged as an outpatient. Discussed with Dr. Ma today and the patient has been cleared per his standpoint with respect to his liver cirrhosis and abdominal ascites and overall condition of his liver cirrhosis. The patient will follow up with Dr. Ma early next week. MD JOSSY Uribe/TREV /[id number]
== END 2018-09-15 10:40 | disposition home or self-care (01) | DRG 432 ==
LOC: ER 14:52 → ERHOLD 18:12 → MED/SURG 19:47
PROVIDERS: ADMIT Internal Medicine; ATTEND Internal Medicine
PROC: 3E0234Z Introduction of Serum, Toxoid and Vaccine into Muscle, Percutaneous Approach (ICD-10-PCS; 2018-09-13)
PROC: 30233R1 Transfusion of Nonautologous Platelets into Peripheral Vein, Percutaneous Approach (ICD-10-PCS; principal; 2018-09-14)
DX: K70.31 Alcoholic cirrhosis of liver with ascites (principal); I81 Portal vein thrombosis; I85.00 Esophageal varices without bleeding; R16.1 Splenomegaly, not elsewhere classified; E11.9 Type 2 diabetes mellitus without complications; F10.21 Alcohol dependence, in remission; E66.9 Obesity, unspecified; Z68.37 Body mass index [BMI] 37.0-37.9, adult; D69.59 Other secondary thrombocytopenia; Z23 Encounter for immunization
CPT/HCPCS: 36415; 71101; 74177; 76705; 80048; 80053; 81001; 82105; 82140; 82550; 82553; 82607; 82728; 82948; 83540; 83735; 83880; 84100; 84443; 84466; 84484; 85025; 85045; 85610; 85730; 86900; 87390; 93005; 99284; G0433; G0435; J1940; J7050; P9034; P9047; Q9967

== ENCOUNTER 2019-01-01 14:01 | Inpatient (IN) | payer MEDICARE, OTHER ==
[~2019-01-01] VITALS: Ht 167.6 cm; Wt 105.7 kg
[~2019-01-01 14:01] MED LIST changes: +ALDACTONE25 MG PO; +CITRACAL + D E1 EACH PO; +IMPRIMIS OU; +LACTULOSE20 GM/30 M PO; +THERA TEARS1 EAC1 OU; +VITAMIN D250000 UNIT PO; +XIFAXAN550 MG PO
--- OUTSIDE RECORDS SUMMARY | 2019-01-01 14:04 | XMS REPORT | Clinical Summary ---
Author Author MARGARITA [facility] Address Unknown Phone Unavailable Care Team Providers Care [place] Detective Name Role Phone Duy Reema PCP Allergies No Known Allergies Medications End Date Status Medication Sig Dispensed Refills Start Date Active spironolactone Daily at noon 0 (ALDACTONE) 25 MG tablet Active insulin degludec (TRESIBA Inject 60 0 FLEXTOUCH U-100) 100 Units unit/mL (3 mL) InPn subcutaneousl y nightly. Active propranolol (INDERAL) 10 Take 10 mg by 0 MG tablet mouth 2 (two) times daily. Active furosemide (LASIX) 40 MG qd 0 tablet Active traMADol (ULTRAM) 50 mg Every 6 Hours 0 tablet as needed for Pain Active GABAPENTIN ORAL Take by mouth 0 daily. Active fluconazole (DIFLUCAN) Take 100 mg 0 100 MG tablet by mouth daily X 14 days . Active insulin lispro (HUMALOG Inject 0 U-100 INSULIN SUBQ) subcutaneousl y 20 units am,pm and night . Active linaclotide (LINZESS) 145 Take 145 mcg 0 mcg Cap by mouth daily. Active Problems Problem Noted Date Cirrhosis 09/27/2018 Last Assessment & Plan: He has cirrhosis diagnosed by imaging, laboratory data and clinical presentation. The likely etiology of his liver disease is previous alcohol use. Blood work ordered today to evaluate for viral, autoimmune, genetic and metabolic causes of liver disease. MELD blood work today to assess his hepatic synthetic dysfunction. Portal hypertension 09/27/2018 Last Assessment & Plan: Portal hypertension is manifested by ascites, varices and hypersplenism. Esophageal varices 09/27/2018 Last Assessment & Plan: He has a history esophageal variceal bleed in 2016. Last EGD by Dr. Ma in August 2018 reported small esophageal and gastric varices. Plan for repeat in one year. Ascites 09/27/2018 Last Assessment & Plan: He has a history of ascites but has never required a paracentesis. We discussed a 2 gram sodium diet. Continue current diuretics. We will increase diuretic dose at follow-up if renal function permits. Alcohol use history 09/27/2018 Last Assessment & Plan: He has a history of significant alcohol abuse in the past. His last drink was in 2014. We recommend continued abstinence. Screening for malignant neoplasm 09/27/2018 Last Assessment & Plan: Cirrhosis is a significant risk factor for development of hepatocellular carcinoma. Recent evidence also suggests a risk of HCC in patients with stage 3 fibrosis on liver biopsy. We recommend surveillance for HCC be performed using imaging and alphafetoprotein every 6 months. Ultrasound from July 2018 reported no concerning lesions. Screening for immunity to viral hepatitis 09/27/2018 Last Assessment & Plan: All patients with chronic liver disease, regardless of etiology, should be immunized to prevent hepatitis A and hepatitis B if they are not already immune. We will test for immunity to both viruses - vaccine recommendations will follow. Obesity (BMI 30-39.9) 09/27/2018 Last Assessment & Plan: Body mass index is 38.43 kg/m. Being obese increases his risk for fatty liver disease. I recommend weight loss with a low carbohydrate, high protein diet. Encounters Care Team Description Date Type Specialty Marian Bernard MD Cirrhosis of liver without ascites, unspecified hepatic cirrhosis type (HCC) (Primary Dx); Screening for endocrine, metabolic and immunity disorder; Screening for malignant neoplasm; Cirrhosis; Portal hypertension ; Esophageal varices; Ascites; Alcohol use history; Screening for immunity to viral hepatitis; Obesity (BMI 30-39.9) 09/27/2018 Office Visit Hepatology after 12/31/2017 Social History Date Tobacco Use Types Packs/Day Years Used Never Smoker Alcohol Use Drinks/Week oz/Week Comments No quit 2014 Sex Assigned at Date Recorded Not on file Industry Job Start Date Occupation Not on file Not on file Not on file Travel End Travel History Travel Start No recent travel history available. Last Filed Vital Signs Time Taken Vital Sign Reading 09/27/2018 3:02 PM CDT Blood Pressure 117/80 09/27/2018 3:02 PM CDT Pulse 82 09/27/2018 3:02 PM CDT Temperature 36.6 C (97.8 F) 09/27/2018 3:02 PM CDT Respiratory Rate 16 09/27/2018 3:02 PM CDT Oxygen Saturation 97% - Inhaled Oxygen - Concentration 09/27/2018 3:02 PM CDT Weight 103.8 kg (228 lb 12.8 oz) 09/27/2018 3:02 PM CDT Height 164.3 cm (5' 4.7") 09/27/2018 3:02 PM CDT Body Mass Index 38.43 Plan of Treatment Not on file Procedures Comments Procedure Name Priority Date/Time Associated Diagnosis CBC W/PLT COUNT & AUTO Routine 09/27/2018 Cirrhosis of liver DIFFERENTIAL 4:01 PM CDT without ascites, unspecified hepatic cirrhosis type (HCC) IRON, TIBC, % SAT. Routine 09/27/2018 Cirrhosis of liver (WITHOUT FERRITIN) 4:01 PM CDT without ascites, unspecified hepatic cirrhosis type (HCC) HEPATITIS C ANTIBODY Routine 09/27/2018 Cirrhosis of liver 4:01 PM CDT without ascites, unspecified hepatic cirrhosis type (HCC) HEPATITIS B SURFACE Routine 09/27/2018 Cirrhosis of liver ANTIGEN 4:01 PM CDT without ascites, unspecified hepatic cirrhosis type (HCC) CBC W/PLT COUNT & AUTO Routine 09/27/2018 Cirrhosis of liver DIFFERENTIAL 4:01 PM CDT without ascites, unspecified hepatic cirrhosis type (HCC) BILIRUBIN, DIRECT Routine 09/27/2018 Cirrhosis of liver 4:01 PM CDT without ascites, unspecified hepatic cirrhosis type (HCC) COMPREHENSIVE METABOLIC Routine 09/27/2018 Cirrhosis of liver PANEL 4:01 PM CDT without ascites, unspecified hepatic cirrhosis type (HCC) ALPHA FETOPROTEIN (AFP), Routine 09/27/2018 Screening for malignant TUMOR MARKER 4:00 PM CDT neoplasm MITOCHONDRIA M2 ANTIBODY Routine 09/27/2018 Cirrhosis of liver (IGG) 4:00 PM CDT without ascites, unspecified hepatic cirrhosis type (HCC) ACTIN (SMOOTH MUSCLE) Routine 09/27/2018 Cirrhosis of liver ANTIBODY, IGG 4:00 PM CDT without ascites, unspecified hepatic cirrhosis type (HCC) ANTI-NUCLEAR ANTIBODY Routine 09/27/2018 Cirrhosis of liver (SANA) 4:00 PM CDT without ascites, unspecified hepatic cirrhosis type (HCC) CERULOPLASMIN Routine 09/27/2018 Cirrhosis of liver 4:00 PM CDT without ascites, unspecified hepatic cirrhosis type (HCC) [id number]\\, Routine 09/27/2018 Cirrhosis of liver SERUM 4:00 PM CDT without ascites, unspecified hepatic cirrhosis type (HCC) FERRITIN Routine 09/27/2018 Cirrhosis of liver 4:00 PM CDT without ascites, unspecified hepatic cirrhosis type (HCC) HEPATITIS B CORE Routine 09/27/2018 Cirrhosis of liver ANTIBODY, TOTAL 4:00 PM CDT without ascites, unspecified hepatic cirrhosis type (HCC) HEPATITIS B SURFACE Routine 09/27/2018 Screening for endocrine, ANTIBODY 4:00 PM CDT metabolic and immunity disorder HEPATITIS A ANTIBODY, IGG Routine 09/27/2018 Screening for endocrine, 4:00 PM CDT metabolic and immunity disorder PROTHROMBIN TIME/INR Routine 09/27/2018 Cirrhosis of liver 4:00 PM CDT without ascites, unspecified hepatic cirrhosis type (HCC) after 12/31/2017 Results * Iron, TIBC, % sat. (without ferritin) (09/27/2018 4:01 PM CDT) Iron 83.0 40.0 - 160.0 ug/dL [facility] TIBC 239 (L) 250 - 450 ug/dL [facility] Iron % Saturation 35 20 - 55 % [facility] Specimen Blood Performing Organization Address City/State/Zipcode Phone Number [facility] [address] [place] [address] MEDICAL CENTER * CBC with platelet count + automated diff (09/27/2018 4:01 PM CDT) WBC 3.5 3.5 - 10.5 K/L [facility] RBC 3.42 (L) 4.63 - 6.08 M/L [facility] Hemoglobin 11.7 (L) 13.7 - 17.5 GM/DL [facility] Hematocrit 33.6 (L) 40.1 - 51.0 % [facility] MCV 98.2 (H) 79.0 - 92.2 fL [facility] MCH 34.2 (H) 25.7 - 32.2 pg [facility] MCHC 34.8 32.3 - 36.5 GM/DL [facility] RDW 14.9 (H) 11.6 - 14.4 % [facility] Platelets 46 (L) 150 - 450 K/CU MM [facility] MPV 12.5 (H) 9.4 - 12.4 fL [facility] nRBC 0 0 - 0 /100 WBC [facility] % Neutros 56 % [facility] % Lymphs 29 % [facility] % Monos 10 % [facility] % Eos 4 % [facility] % Baso 1 % [facility] # Neutros 1.98 1.78 - 5.38 K/L [facility] # Lymphs 1.03 (L) 1.32 - 3.57 K/L [facility] # Monos 0.34 0.30 - 0.82 K/L [facility] # Eos 0.13 0.04 - 0.54 K/L [facility] # Baso 0.02 0.01 - 0.08 K/L [facility] Immature 0 0 - 1 % [facility] Granulocytes-Relative [facility] Specimen Blood Performing Organization Address City/[facility] Cent[facility] Phone Number [address] * Hepatitis C antibody (09/27/2018 4:01 PM CDT) Hepatitis C Ab Nonreactive Nonreactive [facility] Specimen Blood Performing Organization Address City/[facility] Centercode Phone Number [address] * Hepatitis B surface antigen (09/27/2018 4:01 PM CDT) hepatitis B Surface Ag Nonreactive Nonreactive [facility] Specimen Blood Performing Organization Address [facility] Centercony Phone Number [address] * Bilirubin, direct (09/27/2018 4:01 PM CDT) Bilirubin, Direct 0.4Comment: Specimen slightly 0.1 - 0.5 mg/dL [facility] Specimen Blood Performing Organization Address [facility] Centercode Phone Number [address] * Comprehensive Metabolic Panel (09/27/2018 4:01 PM CDT) Protein, Total 6.0Comment: Specimen slightly 6.0 - 8.3 gm/dL [facility] Albumin 2.3 (L)Comment: Specimen 3.5 - 5.0 g/dL [facility] slightly hemolyzed [facility] Alkaline Phosphatase 178 (H) 40 - 150 U/L [facility] Total Bilirubin 0.9Comment: Specimen slightly 0.2 - 1.2 mg/dL [facility] Sodium 139 136 - 145 meq/L [facility] Potassium 4.0Comment: Specimen slightly 3.5 - 5.1 meq/L [facility] Chloride 108 (H) 98 - 107 meq/L [facility] CO2 24 22 - 29 meq/L [facility] BUN 28 (H) 7 - 21 mg/dL [facility] Creatinine 1.17Comment: Specimen slightly 0.57 - 1.25 mg/dL [facility] Glucose 148 (H) 70 - 105 mg/dL [facility] Calcium 8.2 (L) 8.4 - 10.2 mg/dL [facility] AST 46 (H)Comment: Specimen 5 - 34 U/L [facility] slightly [facility] ALT 25Comment: Specimen slightly 6 - 55 U/L [facility] EGFR 64Comment: ESTIMATED GFR IS mL/min/1.73 sq m [facility] NOT ACCURATE CREATININE [facility] CLEARANCE IN PREDICTING GLOMERULAR FILTRATION RATE. ESTIMATED GFR IS NOT APPLICABLE FOR DIALYSIS PATIENTS. Specimen Blood Performing Organization Address City/[facility]/Zipcode Phone Number [address] * Hepatitis A antibody, IgG (09/27/2018 4:00 PM CDT) Hep A IgG Reactive (A) Nonreactive [facility] Specimen Blood Performing Organization Address City/[facility]/Zipcode Phone Number [facility] [address] [place] [phone] [facility] * Mitochondrial Antibodies, M2 (09/27/2018 4:00 PM CDT) Mitochondria M2 Ab <20.0 See Note: U [facility] Comment: INCORPORATED Reference Range: NEGATIVE:< OR=20.0 EQUIVOCAL: 20.1-24.9 POSITIVE:> OR=25.0 Specimen Blood Narrative Performed At Performing Lab [facility] [employer] [address] [address] [place] [address] Tonya Samuels MD, PhD, RUBA Performing Organization Address [facility] Phone Number [facility] [place] [address] [place], [address] [facility] [place] [address] * Actin (Smooth Muscle) Antibody, IgG (09/27/2018 4:00 PM CDT) Anti-Smooth Muscle Ab <20 See Note: U [facility] Comment: INCORPORATED Reference Range: <20 NEGATIVE > OR=20 POSITIVE Antibodies recognizing actin are the main component of smooth muscle antibodies associated with autoimmune liver disease. Actin antibodies are found in approximately 75% of patients with autoimmune hepatitis (AIH) type 1, approximately 65% of patients with autoimmune cholangitis, approximately 30% of patients with primary biliary cirrhosis, and approximately 2% of healthy people. High values are closely correlated with AIH type 1. Specimen Blood Narrative Performed At Performing Lab [employer] [facility] [employer] [address] [address] Tonya Samuels MD, PhD, RUBA Performing Organization Address [facility] Phone Number [employer] [facility] [employer] [employer] [place], [address] [facility] [address] * Bouwq-7-Ikqzugcvtqi (09/27/2018 4:00 PM CDT) A-1 Antitrypsin 148.40 90.00 - 200.00 mg/dL [facility] Specimen Blood Performing Organization Address [facility] Centercode Phone Number [facility] [phone] [place] [address] * Ceruloplasmin (09/27/2018 4:00 PM CDT) Ceruloplasmin 31 18 - 36 mg/dL [facility] Comment: INCORPORATED Adults:Males: 18-36 mg/dL Fe males: 18-53 mg/dL Pediatrics: Males (mg/dL)Females (mg/dL) ------ 0-30 Days 8-25 3-28 31 Days-11 Month 15-481 5-43 1-3 Years2 54 4-6 Years2 -54 7-9 Years2 48 10-12 [id number] 21-48 13-15 [id number] 21-46 16-18 Thuyc26-20 22-50 The pediatric ranges are derived from the following criteria: Rena SJ, Killian BEST, Bozena J et al Pediatric reference ranges for Muxx-1-Irwocwfncuvfb and ceruloplasmin. Clin. Chem 1997; 43:S1999 Pediatric Reference Ranges, 2nd., SF Renaet al. editors. [employer], [place], [place] 1997. Specimen Blood Narrative Performed At Performing Lab [facility] *[facility] [employer] [facility], [address] [place] [address] Casimiro Narayanan MD, PhD Performing Organization Address City/[facility] Centercode Phone Number [facility], [address] [facility] [address] [address] * Alpha fetoprotein (AFP), tumor marker (09/27/2018 4:00 PM CDT) Alpha-Fetoprotein 4.0 <10.0 ng/mL [facility] Specimen Blood Performing Organization Address [facility] Centercode Phone Number [place] [phone] [address] * Hepatitis B core antibody, total (09/27/2018 4:00 PM CDT) Hep B Core Total Ab Nonreactive Nonreactive [facility] Specimen Blood Performing Organization Address City/[facility] Centercode Phone Number [address] [address] [facility] * Hepatitis B surface antibody (09/27/2018 4:00 PM CDT) Hep B S Ab <8.0 <8.0 mIU/mL [facility] Specimen Blood Performing Organization Address [facility] Centercode Phone Number [address] [address] [phone] [place] [address] * Pro-time/INR (09/27/2018 4:00 PM CDT) Protime 14.1 11.7 - 14.7 seconds [facility] INR 1.1 <=5.9 [facility] Specimen Blood Narrative Performed At RECOMMENDED COUMADIN/WARFARIN INR THERAPY RANGES [facility] STANDARD DOSE: 2.0 - 3.0 Includes: PROPHYLAXIS for venous thrombosis, [facility] systemic embolization; TREATMENT for venous thrombosis and/or pulmonary embolus. HIGH RISK: Target INR is 2.5-3.5 for patients with mechanical heart valves. Performing Organization Address City/[facility] Centercode Phone Number [address] [address] [phone] [place] [address] * Anti-Nuclear Antibody (SANA) (09/27/2018 4:00 PM CDT) SANA Negative Negative [facility] Specimen Blood Narrative Performed At Test performed by IFA method. [facility] Test performed by IFA method. [facility] Performing Organization Address City/[facility] Centercode Phone Number [place] [phone] [place] [address] [phone] [place] [address] * Ferritin (09/27/2018 4:00 PM CDT) Ferritin 114 5 - 275 ng/mL [facility] Specimen Blood Performing Organization Address City/[facility] Centercode Phone Number [address] [address] [phone] [place] [address] after 12/31/2017 Insurance Payer Benefit Subscriber ID Type Phone Address Plan / Group [facility] xxxxxxxxx MEDICARE D CARE MEDICARE HMO
[2019-01-01] MEDS ORDERED: ASPIRIN 81 MG CHEW TAB PO ONE (15:00)
[2019-01-01 15:38] LABS: BASOPHILS # (AUTO) 0.1 (0.0-0.1); BASOPHILS % 1.1 % (0.0-1.0); EOSINOPHILS # (AUTO) 0.1 (0.0-0.4); EOSINOPHILS % 2.5 % (0.0-6.0); HEMATOCRIT 31.7 % (38.2-49.6); HEMOGLOBIN 12.2 g/dL (14.0-18.0); LYMPHOCYTES # (AUTO) 1.4 (1.0-3.2); LYMPHOCYTES % 29.7 % (18.0-39.1); MEAN CORPUSCULAR HEMOGLOBIN 35.3 pg (28-32); MEAN CORPUSCULAR HGB CONC 38.5 g/dL (31-35); MEAN CORPUSCULAR VOLUME 91.6 fL (81-99); MONOCYTES # (AUTO) 0.5 (0.2-0.8); MONOCYTES % 11.4 % (4.4-11.3); NEUTROPHILS # (AUTO) 2.6 (2.1-6.9); NEUTROPHILS % 54.7 % (38.7-80.0); PLATELET COUNT 68 x10e3/uL (140-360); RED BLOOD COUNT 3.46 x10e6/uL (4.3-5.7); RED CELL DISTRIBUTION WIDTH 16.3 % (11.7-14.4)
[2019-01-01 15:52] LABS: BILIRUBIN,URINE NEGATIVE (NEGATIVE); CLARITY,URINE SL CLOUDY (CLEAR); COLOR,URINE YELLOW (YELLOW); KETONES,URINE NEGATIVE (NEGATIVE); LEUKOCYTE ESTERASE ,URINE NEGATIVE (NEGATIVE); NITRITE,URINE NEGATIVE (NEGATIVE); URINE UROBILINOGEN 0.2 mg/dL (0.2 - 1)
[2019-01-01 15:53] LABS: PROTEIN,URINE DIPSTICK 2+ (NEGATIVE)
--- NOTE | 2019-01-01 15:58 | Diagnostic Imaging Report ---
EXAMINATION: CHEST SINGLE (NOT PORTABLE) INDICATION: Shortness of breath COMPARISON: Chest radiograph 09/01/2018 FINDINGS: TUBES and LINES: None. LUNGS: The lung volumes are low. No focal consolidation or pulmonary edema. Unchanged metallic densities projecting over the lateral right mid lung and right lung base. PLEURA: No pleural effusion or pneumothorax. HEART AND MEDIASTINUM: Mild cardiomegaly. BONES AND SOFT TISSUES: No acute fracture or dislocation. UPPER ABDOMEN: No free air under the diaphragm. IMPRESSION: Low lung volumes. No focal pneumonia or pulmonary edema. Signed by: Jose Angel Dunlap MD on 01/01/2019 3:54 PM
[2019-01-01 16:01] LABS: ALANINE AMINOTRANSFERASE 29 IU/L (0-55); ALBUMIN 2.4 g/dL (3.5-5.0); ALBUMIN/GLOBULIN RATIO 0.6 (0.8-2.0); ALKALINE PHOSPHATASE 174 IU/L (40-150); ANION GAP 13.7 mmol/L (8-16); BLOOD UREA NITROGEN 12 mg/dL (7-26); BUN/CREATININE RATIO 13 (6-25); CALCIUM 8.1 mg/dL (8.4-10.2); CARBON DIOXIDE 21 mmol/L (22-29); CHLORIDE 89 mmol/L (98-107); CREATINE KINASE 461 IU/L (30-200); CREATININE, SERUM 0.92 mg/dL (0.72-1.25); EST GLOMERULAR FILTRATION RATE > 60 ML/MIN (60-); GLUCOSE 198 mg/dL (74-118); POTASSIUM 3.7 mmol/L (3.5-5.1); SODIUM 120 mmol/L (136-145)
[2019-01-01 16:12] LABS: RBC,URINE 0-5 /HPF (0-5)
[2019-01-01 16:13] LABS: AMORPHOUS SEDIMENT,URINE FEW (FEW); BACTERIA,URINE MODERATE /HPF; EPITHELIAL CELLS,URINE MODERATE /LPF
[2019-01-01] MEDS ORDERED: IOPAMIDOL 370 MG/ML 200 ML INFUS..BTL INJ ONE (17:32)
[2019-01-01] MEDS ORDERED: SODIUM CHLORIDE 0.9% 50ML 50 ML ONE (17:32)
[2019-01-01 17:36] LABS: ANISOCYTOSIS SLIG; PLATELET ESTIMATE MODERATELY INCREASED; PLATELET MORPHOLOGY COMMENT NORMAL; POIKILOCYTOSIS SLIGHT; RBC MORPHOLOGY COMMENT NORMAL
--- NOTE | 2019-01-01 17:37 | Diagnostic Imaging Report ---
EXAM: CT Abdomen and Pelvis WITH intravenous contrast INDICATION: Abdominal pain COMPARISON: CT abdomen pelvis of 09/13/2018 TECHNIQUE: Abdomen and pelvis were scanned utilizing a multidetector helical scanner from the lung base to the pubic symphysis after administration of IV contrast. Coronal and sagittal reformations were obtained. Routine protocol was performed. Scan was performed when during portal venous phase. IV CONTRAST: 100mL of Isovue 370 ORAL CONTRAST: Water COMPLICATIONS: None RADIATION DOSE: Total DLP: 899.8 mGy*cm Dose modulation, iterative reconstruction, and/or weight based adjustment of the mA/kV was utilized to reduce the radiation dose to as low as reasonably achievable. FINDINGS: LOWER THORAX: Normal. HEPATOBILIARY: Cirrhotic liver morphology. Diffuse hypoattenuation of liver parenchyma consistent with hepatic steatosis. No focal liver lesions. No intrahepatic biliary ductal the patient. Calcified gallstones in the gallbladder. No gallbladder wall thickening. SPLEEN: No splenomegaly. PANCREAS: No focal masses or ductal dilatation. ADRENALS: No adrenal nodules. KIDNEYS/URETERS: No hydronephrosis, stones, or solid mass lesions. PELVIC ORGANS/BLADDER: Unremarkable. PERITONEUM / RETROPERITONEUM: Moderate abdominal ascites. No free intraperitoneal air. LYMPH NODES: No lymphadenopathy. 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 The splenic vein and SMV appear patent. Prominent gastroesophageal portosystemic varices. GI TRACT: No bowel wall thickening or bowel obstruction. Normal appendix. BONES AND SOFT TISSUES: No acute osseous injury. No suspicious lytic or blastic lesions. Degenerative changes of the visualized spine, most notably at L5-S1 IMPRESSION: Liver cirrhosis and sequela of portal hypertension including moderate abdominal ascites and gastroesophageal portosystemic varices. 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 Cholelithiasis without CT evidence of cholecystitis. Signed by: Jose Angel Dunlap MD on 01/01/2019 5:33 PM
[2019-01-01 17:58] LABS: INR 0.93
[2019-01-01 17:59] LABS: PARTIAL THROMBOPLASTIN TIME 30.4 seconds (23.8-35.5)
[2019-01-01] MEDS ORDERED: SODIUM CHLORIDE FLUSH 10 ML SYR INJ PRN (18:15)
[2019-01-01] MEDS ORDERED: ONDANSETRON HCL INJ 2MG/ML 2ML 2 MG/ML VIAL IV PRN (18:15)
--- OUTSIDE RECORDS SUMMARY | 2019-01-01 18:28 | XMS REPORT | Clinical Summary ---
Author Author MARGARITA [facility] Address Unknown Phone Unavailable Care Team Providers Care Acid Conditioning Worker Name Role Phone Duy Reema PCP Allergies [...] without ascites, unspecified hepatic cirrhosis type (HCC) [id number]\\, Routine 09/27/2018 Cirrhosis of liver SERUM 4:00 [...] 83.0 40.0 - 160.0 ug/dL [facility] TIBC 239 (L) 250 - 450 ug/dL [facility] Iron % Saturation 35 20 - 55 % [facility] Specimen Blood Performing Organization Address City/State/Zipcode Phone Number [facility] [address] [place] [address] MEDICAL CENTER * CBC with platelet count + automated diff (09/27/2018 4:01 PM CDT) WBC 3.5 3.5 - 10.5 K/L [facility] RBC 3.42 (L) 4.63 - 6.08 M/L [facility] Hemoglobin 11.7 (L) 13.7 - 17.5 GM/DL [facility] Hematocrit 33.6 (L) 40.1 - 51.0 % [facility] MCV 98.2 (H) 79.0 - 92.2 fL [facility] MCH 34.2 (H) 25.7 - 32.2 pg [facility] MCHC 34.8 32.3 - 36.5 GM/DL [facility] RDW 14.9 (H) 11.6 - 14.4 % [facility] Platelets 46 (L) 150 - 450 K/CU MM [facility] MPV 12.5 (H) 9.4 - 12.4 fL [facility] nRBC 0 0 - 0 /100 WBC [facility] % Neutros 56 % [facility] % Lymphs 29 % [facility] % Monos 10 % [facility] % Eos 4 % [facility] % Baso 1 % [facility] # Neutros 1.98 1.78 - 5.38 K/L [facility] # Lymphs 1.03 (L) 1.32 - 3.57 K/L [facility] # Monos 0.34 0.30 - 0.82 K/L [facility] # Eos 0.13 0.04 - 0.54 K/L [facility] # Baso 0.02 0.01 - 0.08 K/L [facility] Immature 0 0 - 1 % [facility] Granulocytes-Relative [facility] Specimen Blood Performing Organization Address City/[facility]/[place] Phone Number [address] * Hepatitis C antibody (09/27/2018 4:01 PM CDT) Hepatitis C Ab Nonreactive Nonreactive [facility] Specimen Blood Performing Organization Address City/[facility]/[place] Phone Number [address] * Hepatitis B surface antigen (09/27/2018 4:01 PM CDT) hepatitis B Surface Ag Nonreactive Nonreactive [facility] Specimen Blood Performing Organization Address [facility]/[place] Phone Number [address] * Bilirubin, direct (09/27/2018 4:01 PM CDT) Bilirubin, Direct 0.4Comment: Specimen slightly 0.1 - 0.5 mg/dL [facility] Specimen Blood Performing Organization Address [facility]/[place] Phone Number [address] * Comprehensive Metabolic Panel (09/27/2018 4:01 PM CDT) Protein, Total 6.0Comment: Specimen slightly 6.0 - 8.3 gm/dL [facility] Albumin 2.3 (L)Comment: Specimen 3.5 - 5.0 g/dL [facility] slightly hemolyzed [facility] Alkaline Phosphatase 178 (H) 40 - 150 U/L [facility] Total Bilirubin 0.9Comment: Specimen slightly 0.2 - 1.2 mg/dL [facility] Sodium 139 136 - 145 meq/L [facility] Potassium 4.0Comment: Specimen slightly 3.5 - 5.1 meq/L [facility] Chloride 108 (H) 98 - 107 meq/L [facility] CO2 24 22 - 29 meq/L [facility] BUN 28 (H) 7 - 21 mg/dL [facility] Creatinine 1.17Comment: Specimen slightly 0.57 - 1.25 mg/dL [facility] Glucose 148 (H) 70 - 105 mg/dL [facility] Calcium 8.2 (L) 8.4 - 10.2 mg/dL [facility] AST 46 (H)Comment: Specimen 5 - 34 U/L [facility] slightly [facility] ALT 25Comment: Specimen slightly 6 - 55 U/L [facility] EGFR 64Comment: ESTIMATED GFR IS mL/min/1.73 sq m [facility] NOT ACCURATE CREATININE [facility] CLEARANCE IN PREDICTING GLOMERULAR FILTRATION RATE. ESTIMATED GFR IS NOT APPLICABLE FOR DIALYSIS PATIENTS. Specimen Blood Performing Organization Address City/[facility]/Zipcode Phone Number [address] * Hepatitis A antibody, IgG (09/27/2018 4:00 PM CDT) Hep A IgG Reactive (A) Nonreactive [facility] Specimen Blood Performing Organization Address City/[facility]/Zipcode Phone Number [facility] [address] [place] [phone] [facility] * Mitochondrial Antibodies, M2 (09/27/2018 4:00 PM CDT) Mitochondria M2 Ab <20.0 See Note: U [facility] Comment: INCORPORATED Reference Range: NEGATIVE:< OR=20.0 EQUIVOCAL: 20.1-24.9 POSITIVE:> OR=25.0 Specimen Blood Narrative Performed At Performing Lab [facility]Z [facility] [address] [place] [address] [place] [address] Tonya Samuels MD, PhD, RUBA Performing Organization Address [facility] Phone Number [employer] [facility] [employer] [place], [address] [facility] [address] * Actin (Smooth Muscle) Antibody, IgG (09/27/2018 [...] Specimen Blood Narrative Performed At Performing Lab [employer] [facility] [employer] [address] [address] Tonya Samuels MD, PhD, RUBA Performing Organization Address [facility] Phone Number [employer] [facility] [employer] [place], [address] [facility] [address] * Pajdg-1-Oyilrmswbyl (09/27/2018 4:00 PM CDT) A-1 Antitrypsin 148.40 90.00 - 200.00 mg/dL [facility] Specimen Blood Performing Organization Address [facility]/[place] Phone Number [facility] [phone] [place] [address] * Ceruloplasmin (09/27/2018 4:00 PM CDT) Ceruloplasmin 31 18 - 36 mg/dL [facility] Comment: INCORPORATED Adults:Males: 18-36 mg/dL Fe males: 18-53 mg/dL Pediatrics: Males (mg/dL)Females (mg/dL) ------ 0-30 Days 8-25 3-28 31 Days-11 Month 15-481 5-43 1-3 Years2 54 4-6 Years2 -54 7-9 Years2 48 10-12 [id number] 21-48 13-15 [id number] 21-46 16-18 Pknmw36-44 22-50 The pediatric ranges are derived from the following criteria: Rena SJ, Killian BEST, Bozena J et al Pediatric reference ranges for Lnaa-5-Aewglahsvwlot and ceruloplasmin. Clin. Chem 1997; 43:S1999 Pediatric Reference Ranges, 2nd., [place] Renaet al. editors. [employer], [place], [place] 1997. Specimen Blood Narrative Performed At Performing Lab [facility] *[facility] [place] [facility], [address] [place] [address] Casimiro Narayanan MD, PhD Performing Organization Address City/[facility]/[place] Phone Number [facility], [address] [facility] [address] [address] * Alpha fetoprotein (AFP), tumor marker (09/27/2018 4:00 PM CDT) Alpha-Fetoprotein 4.0 <10.0 ng/mL [facility] Specimen Blood Performing Organization Address [facility]/[place] Phone Number [place] [phone] * Hepatitis B core antibody, total (09/27/2018 4:00 PM CDT) Hep B Core Total Ab Nonreactive Nonreactive [facility] Specimen Blood Performing Organization Address City/[facility]/[place] Phone Number [address] [address] [facility] * Hepatitis B surface antibody (09/27/2018 4:00 PM CDT) Hep B S Ab <8.0 <8.0 mIU/mL [facility] Specimen Blood Performing Organization Address [facility]/[place] Phone Number [address] [address] [phone] [place] [address] * Pro-time/INR (09/27/2018 4:00 PM CDT) Protime 14.1 11.7 - 14.7 seconds [facility] INR 1.1 <=5.9 [facility] Specimen Blood Narrative Performed At RECOMMENDED COUMADIN/WARFARIN INR THERAPY RANGES [facility] STANDARD DOSE: 2.0 - 3.0 Includes: PROPHYLAXIS for venous thrombosis, [facility] systemic embolization; TREATMENT for venous thrombosis and/or pulmonary embolus. HIGH RISK: Target INR is 2.5-3.5 for patients with mechanical heart valves. Performing Organization Address City/[facility]/[place] Phone Number [address] [address] [phone] [place] [address] * Anti-Nuclear Antibody (SANA) (09/27/2018 4:00 PM CDT) SANA Negative Negative [facility] Specimen Blood Narrative Performed At Test performed by IFA method. [facility] Test performed by IFA method. [facility] Performing Organization Address City/[facility]/[place] Phone Number [phone] [place] [address] [phone] [place] [address] * Ferritin (09/27/2018 4:00 PM CDT) Ferritin 114 5 - 275 ng/mL [facility] Specimen Blood Performing Organization Address City/[facility]/[place] Phone Number [address] [address] [phone] [place] [address] after 12/31/2017 Insurance Payer Benefit Subscriber ID Type Phone Address Plan / Group [facility] xxxxxxxxx MEDICARE D CARE MEDICARE HMO
[2019-01-01 20:56] VITALS: BP 174/100
--- NOTE | 2019-01-01 20:57 | NUR ---
PT ARRIVED ON UNIT AT THIS TIME VIA STRETCHER.
[2019-01-01] MEDS ORDERED: [UNRECOGNIZED DRUG - OTHER] SC SCH (21:00)
[2019-01-01] MEDS ORDERED: GABAPENTIN 300 MG CAP PO SCH (21:00)
[2019-01-01] MEDS ORDERED: DEXTROSE 50% SYRINGE 50 ML IV PRN (22:00)
[2019-01-02] VITALS (8 sets, daily range): BP systolic 117–172; BP diastolic 78–97
[2019-01-02 03:13] LABS: CREATINE KINASE MB 5.7 ng/mL (0-5.0)
[2019-01-02 06:08] LABS: BASOPHILS % 0.6 % (0.0-1.0); EOSINOPHILS # (AUTO) 0.1 (0.0-0.4); EOSINOPHILS % 3.3 % (0.0-6.0); HEMATOCRIT 30.4 % (38.2-49.6); HEMOGLOBIN 11.4 g/dL (14.0-18.0); MEAN CORPUSCULAR HEMOGLOBIN 34.9 pg (28-32); MEAN CORPUSCULAR HGB CONC 37.5 g/dL (31-35); MONOCYTES # (AUTO) 0.5 (0.2-0.8); MONOCYTES % 13.4 % (4.4-11.3); NEUTROPHILS # (AUTO) 1.8 (2.1-6.9); NEUTROPHILS % 53.4 % (38.7-80.0); PLATELET COUNT 55 x10e3/uL (140-360); RED BLOOD COUNT 3.27 x10e6/uL (4.3-5.7); RED CELL DISTRIBUTION WIDTH 16.4 % (11.7-14.4)
[2019-01-02 06:28] LABS: ANION GAP 13.8 mmol/L (8-16); BLOOD UREA NITROGEN 12 mg/dL (7-26); BUN/CREATININE RATIO 13 (6-25); CALCIUM 8.2 mg/dL (8.4-10.2); CARBON DIOXIDE 22 mmol/L (22-29); CHLORIDE 96 mmol/L (98-107); CREATININE, SERUM 0.89 mg/dL (0.72-1.25); EST GLOMERULAR FILTRATION RATE > 60 ML/MIN (60-); GLUCOSE 156 mg/dL (74-118); POTASSIUM 3.8 mmol/L (3.5-5.1); SODIUM 128 mmol/L (136-145)
--- NOTE | 2019-01-02 06:56 | Diagnostic Imaging Report ---
EXAMINATION: CHEST SINGLE (PORTABLE) INDICATION: ^soB COMPARISON: 01/01/2019 FINDINGS: AP view TUBES and LINES: None. LUNGS: Limited by low lung volumes and body habitus. No definite focal consolidation. PLEURA: No pleural effusion or pneumothorax. HEART AND MEDIASTINUM: The cardiac silhouette is enlarged on this AP view. BONES AND SOFT TISSUES: No acute osseous lesion. Soft tissues are unremarkable. UPPER ABDOMEN: No free air under the diaphragm. IMPRESSION: Limited as above. No definite focal consolidation. Signed by: Dr. Ankur Doan MD on 01/02/2019 6:53 AM
--- NOTE | 2019-01-02 07:10 | NUR ---
Report given to NUHA Finney at this time. Pt resting in bed comfortably, in no apparent distress. Call light is in reach of patient.
[2019-01-02] MEDS: INSULIN REGULAR, HUMAN 100 UNIT/1 ML 3ML VIAL SQ SCH ×4 (07:30→20:35)
--- NOTE | 2019-01-02 07:49 | NUR ---
Pt received in bed with eyes open. Pt is aox4 and able to verbalize needs. Denies any pain at this time. Denies SOB on room air with saturation of 94%.
[2019-01-02] MEDS ORDERED: SPIRONOLACTONE 25 MG TAB PO SCH (09:00)
[2019-01-02] MEDS ORDERED: INSULIN NPL SQ SCH (09:00)
[2019-01-02] MEDS ORDERED: INSULIN LISPRO SQ SCH (09:00)
[2019-01-02] MEDS ORDERED: [UNRECOGNIZED DRUG - OTHER] SQ SCH (09:00)
[2019-01-02] MEDS: FUROSEMIDE 40 MG TAB PO SCH ×2 (09:14→17:14)
[2019-01-02] MEDS: OYST-CAL-D 500MG TABLET PO SCH (09:14)
[2019-01-02] MEDS: LACTULOSE SYRUP 20 GM/30 ML UDC PO SCH ×2 (09:14→17:14)
[2019-01-02] MEDS: PANTOPRAZOLE SOD 40 MG TABEC PO SCH (09:14)
[2019-01-02] MEDS: RIFAXIMIN 550 MG TABLET PO SCH ×2 (09:15→17:14)
[2019-01-02] MEDS: PROPRANOLOL HCL 10 MG TAB PO SCH ×2 (09:15→17:14)
[2019-01-02] MEDS ORDERED: CEFTRIAXONE SOD 1 GM/NS 50 ML 50 ML IV SCH (11:00)
[2019-01-02 11:39] LABS: CREATINE KINASE MB 5.1 ng/mL (0-5.0)
--- NOTE | 2019-01-02 11:50 | History and Physical ---
CHIEF COMPLAINT: Increasing shortness of breath, abdominal massive ascites, abdominal pain. HISTORY OF PRESENT ILLNESS: A 58-year-old male with liver cirrhosis associated with abdominal ascites with recurrent ultrasound-guided paracentesis. The patient was previously a heavy alcoholic and the patient now with abdominal ascites from his liver cirrhosis associated with portal hypertension. Questionable whether the patient is compliant with his home medication. He came in with increasing abdominal pain associated with abdominal distention due to ascites. The patient also has some urinary tract infection as well. His WBC was 3.3. He is thrombocytopenic as well. The patient is otherwise stable at this time. PAST MEDICAL HISTORY: 1. Liver cirrhosis associated with portal hypertension and abdominal ascites. 2. Alcoholism. 3. Hypertension. 4. Chronic pancytopenia secondary to liver cirrhosis. 5. Diabetes type 2, on insulin treatment. PAST SURGICAL HISTORY: Noncontributory. SOCIAL HISTORY: The patient does not smoke. He quit alcohol. ALLERGIES: NO KNOWN ALLERGIES. HOME MEDICATIONS: Vitamin D3, vitamin D2, furosemide, gabapentin, insulin Humalog mix, lactulose, omeprazole, propranolol, rifaximin, spironolactone and tramadol. PHYSICAL EXAMINATION: VITAL SIGNS: Temperature is 97, blood pressure 155, 81, pulse rate is 106, respiration 20. GENERAL: The patient is not in acute distress. He is awake. HEENT: Normocephalic, atraumatic. Pupils reactive. Anicteric. NECK: Supple grossly. PULMONARY: Diminished breath sounds with rales at the bases. CARDIOVASCULAR: Tachycardia. ABDOMEN: Massive ascites, tenderness. EXTREMITIES: No cyanosis. Positive for edema. NEUROLOGIC: No gross focal deficit. LABORATORY DATA: WBC 4.7, hemoglobin 12.2, hematocrit 31.7, and platelets 68,000. Chemistry; sodium is 128, potassium 3.8, chloride 96, bicarb 22, BUN is 12, creatinine 0.8, glucose is 156. IMPRESSION: 1. Massive ascites secondary to advanced liver cirrhosis. 2. Urinary tract infection with 2+ protein, 2+ glucose, WBC positive and moderate bacteria. 3. Possible spontaneous bacterial peritonitis associated with increasing abdominal pain. PLAN: Antibiotics. Resume home medication. Therapeutic paracentesis. Consultation with Dr. Jackeline Ma, his linoleum layer. MD JOSSY Uribe/TREV /[id number]
[2019-01-02] MEDS: METRONIDAZOLE 500MG/NS 100ML 100 ML IV SCH ×2 (12:03→17:14)
[2019-01-02] MEDS ORDERED: SODIUM CHLORIDE 0.9% 250ML 250 ML ONE (12:08)
--- NOTE | 2019-01-02 12:40 | NUR ---
Pt taken to radiology dept at this time for paracentesis. Pt aox4 and able to verbalize needs. Pt denies any SOB. at this time.
--- NOTE | 2019-01-02 14:00 | NUR ---
Pt returned from his paracentesis at this time. Pt is able to verbalize needs. 2.4L were removed from pt. Denies any pain at this time. Denies SOB at this time on room air.
--- NOTE | 2019-01-02 14:47 | Diagnostic Imaging Report ---
PROCEDURE: Ultrasound-guided therapeutic paracentesis Procedural Personnel Attending physician(s): Jose Angel Dunlap MD Pre-procedure diagnosis: Cirrhosis, ascites Post-procedure diagnosis: Same Indication: Ascites with pain or pressure symptoms Additional clinical history: None Complications: No immediate complications. IMPRESSION: Ultrasound-guided paracentesis with drainage of 2400 mL of serous fluid. Plan: Resume care by clinical team. PROCEDURE SUMMARY: - Limited abdominal ultrasound - Ultrasound-guided paracentesis - Additional procedure(s): None PROCEDURE DETAILS: Pre-procedure Consent: Informed consent for the procedure including risks, benefits and alternatives was obtained and time-out was performed prior to the procedure. Preparation: The site was prepared and draped using maximal sterile barrier technique including cutaneous antisepsis. Anesthesia/sedation Level of anesthesia/sedation: No sedation Anesthesia/sedation administered by: Not applicable Initial abdominal ultrasound Initial abdominal ultrasound was performed. Findings: Moderate ascites. A safe window for paracentesis was identified. Paracentesis Local anesthesia was administered. The peritoneal cavity was accessed and fluid return confirmed position. Ascites was drained. The catheter was then removed, and a sterile bandage was applied. Paracentesis access technique: Real-time ultrasound guidance Catheter placed: 5F Yueh Post-drainage ultrasound: Small ascites Additional Details Additional description of procedure: None Equipment details: None Specimens removed: Abdominal fluid Estimated blood loss (mL): Less than 10 Standardized report: [id number] Attestation Signer name: Jose Angel Dunlap MD I attest that I was present for the entire procedure. I reviewed the stored images and agree with the report as written. Signed by: Jose Angel Dunlap MD on 01/02/2019 2:44 PM
--- NOTE | 2019-01-02 19:00 | NUR ---
Pt in bed. 0 s/s of acute distress noted. Dr. Ma was here to see pt. Report given to oncoming shift.
--- NOTE | 2019-01-02 20:03 | Consultation ---
DATE OF CONSULTATION: 01/02/2019 HISTORY OF PRESENT ILLNESS: Mr. Hussein is well known to me. He is 58 years old. I have seen him in the office with history of cirrhosis secondary to alcohol. Unfortunately, he continued to consume alcohol. He was referred to [facility] Hepatology because of his end-stage renal disease. Last time, he saw them about 2-3 months ago. Complication from his cirrhosis are varices without bleeding and recently an ascites. That was the reason for him to come to the hospital for increased abdominal girth and some short of breath. He denied nausea or vomiting. He denied fever. He denied any abdominal pain. 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 Also, noted to have some gastric varices and portal gastropathy. He was supposed to be repeat in one year. MEDICATIONS: While in the hospital is: 1. Flagyl. 2. Ceftriaxone. 3. Xifaxan. 4. Propranolol. 5. Aldactone 50 mg a day. 6. Protonix. 7. Lactulose. 8. Lasix 40 mg twice a day. 9. Zofran. 10. Gabapentin. ALLERGIES: HE IS NOT KNOWN TO BE ALLERGIC TO ANYTHING. PAST MEDICAL HISTORY: Hypertension and diabetes. 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 SOCIAL HISTORY: Socially, he is unemployed, have 4 children, , and he does not smoke, but he drink alcohol. REVIEW OF SYSTEMS: Unremarkable except for the symptoms mentioned above. PHYSICAL EXAMINATION: GENERAL: He is awake, alert, and oriented. VITAL SIGNS: Temperature 96.4, pulse 95, respiratory rate 20, and blood pressure 169/91. NECK: Supple. HEENT: Normal sclerae. LUNGS: Clear. HEART: Irregularly irregular. Occasional irregular beat. ABDOMEN: Soft, distended, not tender. No acute sign. CENTRAL NERVOUS SYSTEM: Motor function grossly intact. EXTREMITIES: 2+ edema. IMPRESSION: End-stage liver disease and ascites. The patient underwent paracentesis before I saw him. I am not sure if fluid was sent for analysis. PLAN: My plan for him to put him on 2 g salt diet, obtain dietitian consult to teach him about low-salt diet. Stop any normal saline in his IV. I have changed his diuretic regimen to Protonix 100 mg once a day and we will continue Lasix at 80 mg once a day and we will follow his kidney function at this time go by. We will continue of course is other medication. His urinalysis shows some increasing white cell count and I will order a culture. His CT scan of the abdomen shows cirrhosis, portal hypertension, ascites, varices, and eccentric thrombus along the anterior wall of the main portal vein. We will continue to monitor. Jackeline Ma MD RD/MODL /[id number]
[2019-01-02 20:24] LABS: INR 1.07; PROTHROMBIN TIME 14.4 seconds (11.9-14.5)
[2019-01-02 20:25] LABS: PARTIAL THROMBOPLASTIN TIME 30.9 seconds (23.8-35.5)
[2019-01-02] MEDS: INSULIN GLARGINE 100 UNITS/ML VIAL SQ SCH (20:36)
[2019-01-02] MEDS: GABAPENTIN 100 MG CAP PO SCH (20:36)
[2019-01-03] VITALS (7 sets, daily range): BP systolic 126–166; BP diastolic 72–98
[2019-01-03] MEDS: METRONIDAZOLE 500MG/NS 100ML 100 ML IV SCH ×3 (01:56→18:08)
[2019-01-03 05:54] LABS: BASOPHILS % 0.8 % (0.0-1.0); EOSINOPHILS # (AUTO) 0.1 (0.0-0.4); EOSINOPHILS % 2.8 % (0.0-6.0); HEMATOCRIT 28.8 % (38.2-49.6); HEMOGLOBIN 10.2 g/dL (14.0-18.0); LYMPHOCYTES # (AUTO) 0.7 (1.0-3.2); LYMPHOCYTES % 27.6 % (18.0-39.1); MEAN CORPUSCULAR HEMOGLOBIN 34.5 pg (28-32); MEAN CORPUSCULAR HGB CONC 35.4 g/dL (31-35); MEAN CORPUSCULAR VOLUME 97.3 fL (81-99); MONOCYTES # (AUTO) 0.4 (0.2-0.8); MONOCYTES % 15.7 % (4.4-11.3); NEUTROPHILS # (AUTO) 1.3 (2.1-6.9); NEUTROPHILS % 52.7 % (38.7-80.0); RED BLOOD COUNT 2.96 x10e6/uL (4.3-5.7); RED CELL DISTRIBUTION WIDTH 17.4 % (11.7-14.4)
[2019-01-03 06:02] LABS: PLATELET COUNT 46 x10e3/uL (140-360)
--- NOTE | 2019-01-03 06:17 | NUR ---
Dr. Brewster called at this time and voicemail left notifying of critical low platelet this morning. Awaiting call back at this time.
[2019-01-03 06:22] LABS: ALANINE AMINOTRANSFERASE 22 IU/L (0-55); ALBUMIN/GLOBULIN RATIO 0.6 (0.8-2.0); ALKALINE PHOSPHATASE 129 IU/L (40-150); ANION GAP 12.3 mmol/L (8-16); BLOOD UREA NITROGEN 17 mg/dL (7-26); BUN/CREATININE RATIO 17 (6-25); CALCIUM 8.2 mg/dL (8.4-10.2); CARBON DIOXIDE 27 mmol/L (22-29); CHLORIDE 104 mmol/L (98-107); CREATININE, SERUM 0.98 mg/dL (0.72-1.25); EST GLOMERULAR FILTRATION RATE > 60 ML/MIN (60-); GLUCOSE 91 mg/dL (74-118); POTASSIUM 3.3 mmol/L (3.5-5.1); SODIUM 140 mmol/L (136-145)
--- NOTE | 2019-01-03 07:08 | NUR ---
Report given to NUHA Finney at this time.
--- NOTE | 2019-01-03 08:02 | NUR ---
Pt received in bed with eyes closed easily arouses with verbal stimuli. Denies any pain at this time. Pt is on room air and denies SOB at this time.
[2019-01-03] MEDS: PROPRANOLOL HCL 10 MG TAB PO SCH ×2 (09:04→17:57)
[2019-01-03] MEDS: LACTULOSE SYRUP 20 GM/30 ML UDC PO SCH ×2 (09:04→17:57)
[2019-01-03] MEDS: SPIRONOLACTONE 25 MG TAB PO SCH (09:04)
[2019-01-03] MEDS: FUROSEMIDE 40 MG TAB PO SCH (09:05)
[2019-01-03] MEDS: PANTOPRAZOLE SOD 40 MG TABEC PO SCH (09:05)
[2019-01-03] MEDS: RIFAXIMIN 550 MG TABLET PO SCH ×2 (09:05→17:57)
[2019-01-03] MEDS: OYST-CAL-D 500MG TABLET PO SCH (09:05)
[2019-01-03] MEDS: INSULIN REGULAR, HUMAN 100 UNIT/1 ML 3ML VIAL SQ SCH ×4 (09:08→20:50)
--- NOTE | 2019-01-03 10:05 | NUR ---
Visit made by the Spiritual Care Department Pastoral Visitor, Ambar Linder. PV provided pastoral presence, prayer, hospitality, and supportive listening. Pastoral Visitor informed pt/family of the scope of [employer] and availability. MATT WOLF Rn Appeals Spiritual Care Department O: [phone] Pager: [phone] ([phone] number calling from)
[2019-01-03 10:17] LABS: EOSINOPHILS % (MANUAL) 3 % (0-7); LYMPHOCYTES % (MANUAL) 22 % (19-48); MONOCYTES % (MANUAL) 12 % (3.4-9.0); NEUTROPHILS % (MANUAL) 63 % (40-74); PLATELET ESTIMATE MARKEDLY DECREASED; PLATELET MORPHOLOGY COMMENT NORMAL; RBC MORPHOLOGY COMMENT NORMAL
[2019-01-03] MEDS ORDERED: CEFTRIAXONE SOD 1 GM in DEXTROSE 5% 50ML 50 ML IV SCH (14:00)
--- NOTE | 2019-01-03 14:51 | NUR ---
Nutrition Screen Note RD Recommendation for Physician: -Continue current diet as ordered Plan of Care: RD following, monitoring for tolerance and adequacy, diet education Nutrition reason for involvement: MD Consult diet education Primary Diagnose(s): End-stage liver disease and ascites PMH: cirrhosis secondary to alcohol, ESLD, HTN, DM Ht: 66in Wt: 233lb BMI: 37.6kg/m2 IBW: 142lb +/- 10% RD Assessment: (01/03) Chart reviewed. Labs and meds reviewed. 58yo M, who was admitted for ESLD w ascites. Pt had 2400mL fluids drawn from paracentesis yesterday. Visited pt in the room. Pt reported good appetite without any GI complains. LBM 01/03. Pt admitted that his last alcohol intake was about a week ago. RD offered education on low sodium diet; pt was agreeable. All questions have been answered. Current Diet: 2g sodium diet Malnutrition Evaluation (01/03/2019) The patient does not meet criteria for a specified degree of malnutrition at this time. Will re-evaluate at follow-up as appropriate. Diet Education Needs Assessment: Diet education indicated, pt was agreeable. Learner(s): pt Time spent: 20minutes Barriers: No barriers identified. Cultural/Language Modifications: Pt speaks [place] only. Used classroom technology technician service. Readiness: Acceptance Method: Explanation, Handouts in [place] Topics: Low sodium nutrition therapy Understanding/Compliance: Expect fair understanding/compliance from pt. Will benefit from reinforcement. Nutrition Care Level: low Signed: Octavia Jaimes, MS, RD, LD
--- NOTE | 2019-01-03 15:34 | Diagnostic Imaging Report ---
EXAM: Limited abdominal ultrasound INDICATION: Assessment for ascites COMPARISON: Abdomen and pelvis CT of 01/01/2019, ultrasound-guided paracentesis of 01/02/2019 TECHNIQUE: Transverse and longitudinal images of the right upper quadrant, right lower quadrant, left upper quadrant and left lower quadrant were obtained. FINDINGS: Sonographic evaluation of the abdomen demonstrates no visible ascites in the right upper, right lower, left upper, or left lower quadrants. No window is present for paracentesis. IMPRESSION: No abdominal ascites. Signed by: Jose Angel Dunlap MD on 01/03/2019 3:30 PM
--- NOTE | 2019-01-03 18:11 | NUR ---
Paged Dr. Ma about ultrasound results that say no ascites. Waiting for call back to see if he wants to proceed with paracentesis. Dr. Brewster is aware of ultrasounds results.
--- NOTE | 2019-01-03 18:35 | NUR ---
Spoke with Dr. Ma to report ultrasound results. Received orders to cancel paracentesis.
--- NOTE | 2019-01-03 19:02 | NUR ---
RECEIVED REPORT FROM PREVIOUS NURSE. CALL LIGHT WITHIN REACH. PATIENT IS IN BED. PATIENT IN NO PAIN OR DISTRESS. PATIENT IS A&OX3
[2019-01-03] MEDS: INSULIN GLARGINE 100 UNITS/ML VIAL SQ SCH (20:51)
[2019-01-03] MEDS: GABAPENTIN 100 MG CAP PO SCH (21:10)
[2019-01-04] VITALS: BP 141/65
[2019-01-04 00:22] VITALS: BP 141/65
[2019-01-04] MEDS: METRONIDAZOLE 500MG/NS 100ML 100 ML IV SCH (01:58)
[2019-01-04 04:00] VITALS: BP 129/66
[2019-01-04 05:58] LABS: BASOPHILS % 0.4 % (0.0-1.0); EOSINOPHILS # (AUTO) 0.1 (0.0-0.4); EOSINOPHILS % 5.5 % (0.0-6.0); HEMATOCRIT 29.5 % (38.2-49.6); HEMOGLOBIN 10.5 g/dL (14.0-18.0); LYMPHOCYTES # (AUTO) 0.8 (1.0-3.2); LYMPHOCYTES % 31.5 % (18.0-39.1); MEAN CORPUSCULAR HEMOGLOBIN 35.5 pg (28-32); MEAN CORPUSCULAR HGB CONC 35.6 g/dL (31-35); MEAN CORPUSCULAR VOLUME 99.7 fL (81-99); MONOCYTES # (AUTO) 0.4 (0.2-0.8); MONOCYTES % 15.1 % (4.4-11.3); NEUTROPHILS # (AUTO) 1.1 (2.1-6.9); NEUTROPHILS % 47.5 % (38.7-80.0); RED BLOOD COUNT 2.96 x10e6/uL (4.3-5.7); RED CELL DISTRIBUTION WIDTH 17.9 % (11.7-14.4)
[2019-01-04 06:17] LABS: ANION GAP 11.9 mmol/L (8-16); BLOOD UREA NITROGEN 19 mg/dL (7-26); BUN/CREATININE RATIO 17 (6-25); CALCIUM 8.2 mg/dL (8.4-10.2); CARBON DIOXIDE 30 mmol/L (22-29); CHLORIDE 101 mmol/L (98-107); CREATININE, SERUM 1.15 mg/dL (0.72-1.25); EST GLOMERULAR FILTRATION RATE > 60 ML/MIN (60-); GLUCOSE 189 mg/dL (74-118); POTASSIUM 3.9 mmol/L (3.5-5.1); SODIUM 139 mmol/L (136-145)
[2019-01-04 06:29] LABS: PLATELET COUNT 40 x10e3/uL (140-360)
--- NOTE | 2019-01-04 06:34 | NUR ---
Lab called about patient having critical platelet count of 40. Called and talked to Dr. Brewster and he said okay.
--- NOTE | 2019-01-04 06:53 | NUR ---
Gave report to oncoming nurse. Patient in bed. call light within reach.
--- NOTE | 2019-01-04 07:30 | NUR ---
Rcvd patient in report this am. Patient is asleep in bed at this time. No s/s of distress noted
[2019-01-04] MEDS: FUROSEMIDE 40 MG TAB PO SCH (08:14)
[2019-01-04] MEDS: LACTULOSE SYRUP 20 GM/30 ML UDC PO SCH (08:14)
[2019-01-04] MEDS: PANTOPRAZOLE SOD 40 MG TABEC PO SCH (08:14)
[2019-01-04] MEDS: PROPRANOLOL HCL 10 MG TAB PO SCH (08:14)
[2019-01-04] MEDS: OYST-CAL-D 500MG TABLET PO SCH (08:14)
[2019-01-04] MEDS: SPIRONOLACTONE 25 MG TAB PO SCH (08:14)
[2019-01-04] MEDS: RIFAXIMIN 550 MG TABLET PO SCH (08:14)
[2019-01-04 08:24] LABS: EOSINOPHILS % (MANUAL) 4 % (0-7); LYMPHOCYTES % (MANUAL) 28 % (19-48); MONOCYTES % (MANUAL) 13 % (3.4-9.0); NEUTROPHILS % (MANUAL) 55 % (40-74); PLATELET ESTIMATE MARKEDLY DECREASED; PLATELET MORPHOLOGY COMMENT NORMAL; RBC MORPHOLOGY COMMENT NORMAL
[2019-01-04 08:27] VITALS: BP 165/85
--- NOTE | 2019-01-04 09:00 | NUR ---
Patient is AAOx3. Lung michele clear to auscultation. Bowel sounds present x4. Abdomen round and distended d/t ascites. Patient was tapped yesterday and removed 2 liters. Left wrist 20G IV in place. Patient has no shortness of breath and no chest pain noted.
[2019-01-04] MEDS: INSULIN REGULAR, HUMAN 100 UNIT/1 ML 3ML VIAL SQ SCH (09:02)
[2019-01-04] MEDS ORDERED: ONDANSETRON HCL 4 MG ORAL DISINTEGRATING TAB PO PRN (09:15)
[2019-01-04] MEDS ORDERED: ENOXAPARIN SOD INJ 60 MG/0.6 ML SYR SC SCH (09:30)
[2019-01-04 09:51] VITALS: BP 165/85
[2019-01-04] MEDS ORDERED: ALDACTONE25 MG PO (11:06)
[2019-01-04] MEDS ORDERED: LOVENOX60 MG/0.6 SC (11:06)
--- NOTE | 2019-01-04 11:30 | NUR ---
Patient discharged from facility to home. Patient assisted out via staff in wheelchair. Reviewed discharge instructions with him and daughter, RX's given and education given as well. Verbalized understanding
--- NOTE | 2019-01-04 14:18 | Consultation ---
DATE OF CONSULTATION: 01/04/2019 HISTORY OF PRESENT ILLNESS: This is a very pleasant gentleman with a past medical history includes alcoholic cirrhosis, currently following [facility], recent history of portal vein thrombosis, is currently in hospital with worsening abdominal distention and shortness of breath. The patient's repeated workup also showed persistent portal vein thrombosis. I am currently involved for further management. The patient received paracentesis yesterday. He feels better. Denies any shortness of breath or chest pain. PAST MEDICAL HISTORY: Alcoholic cirrhosis, diabetes, hypertension. PAST SURGICAL HISTORY: Amputation. SOCIAL HISTORY: He drinks alcohol. No smoking or drugs. REVIEW OF SYSTEMS: A 12-point review as per HPI. PHYSICAL EXAMINATION: GENERAL: Alert, awake, communicative. HEENT: Normocephalic, atraumatic. Sclerae pale. Conjunctivae clear. NECK: Supple. CHEST: Decreased breath sounds at bases. ABDOMEN: Soft. EXTREMITIES: No edema. LABS AND IMAGING: Reviewed. ASSESSMENT AND PLAN: The patient with history of multiple medical conditions. I am currently following for new program. Portal vein thrombosis. The patient has persistent portal vein thrombosis. RECOMMENDATIONS: Discharge the patient on anticoagulation. [place] anticoagulation will be Lovenox. We will start the patient on 60 mg of Lovenox. We will follow the patient in a week. Risk of bleeding was discussed with the patient. We will teach the patient how to use the Lovenox. We will provide prescription. We will monitor the patient very closely. History of rectal bleeding, history of iron deficiency anemia. Recommendation, further management and treatment as outpatient. We will continue remaining care. We will follow the patient closely. MD DHAVAL Pike/TREV /[id number]
--- NOTE | 2019-01-04 16:13 | Progress Note ---
DATE: 01/03/2019 Mr. Hussein underwent paracentesis. A total of 2400 mL of fluid removed. Overall stable. I increased his diuretics. We will follow up in about a week time with blood test to make sure that he tolerated increase in his diuretics. We asked the targeting acquisition officer to see him for his low-salt diet. His CT scan shows the evolution of a thrombose in the anterior wall of the portal vein. This is different from his previous CT scan done in September. I consulted with Hematology for anticoagulation. Dr. Newton will be seeing him and start him on anticoagulation, and we will follow as an outpatient. Jackeline Ma MD RD/TREV /[id number]
--- NOTE | 2019-01-05 02:15 | Discharge Summary ---
PRIMARY CARE PHYSICIAN: Reema Gordillo MD. CONSULTANTS: 1. Jessica Newton MD. 2. Jackeline Ma MD. FINAL DIAGNOSES: 1. Advanced liver cirrhosis associated with portal hypertension, pancytopenia and massive ascites. 2. Status post ultrasound-guided paracenteses done on January 02, 2019 approximately a 2.5 L of serous fluid obtained. 3. Chronic anemia. 4. Portal hypertension as mentioned. SUMMARY: A 58-year-old male with advanced liver cirrhosis. The patient is seen Dr. Ma as outpatient. The patient came in with fluid overload due to abdominal ascites. He underwent paracentesis and the patient is doing well. His platelets are stable above 40. He was on Flagyl and Rocephin for possible spontaneous bacterial peritonitis that is mostly unlikely. The patient is stable. He is ambulatory. He is eating. He does have an eye appointment today. He does want to go home. The patient is stable. I agree, only thing change is to add on Aldactone 50 mg twice a day, and he will continue with his furosemide 40 mg twice a day. He will continue his other home medication. The patient is stable, discharged home today. MD JOSSY Uribe/TREV /[id number]
== END 2019-01-04 11:20 | disposition home or self-care (01) | DRG 432 ==
LOC: ER 14:01 → ERHOLD 18:14 → MED/SURG 21:03
PROVIDERS: ADMIT Internal Medicine; ATTEND Internal Medicine
PROC: 0W9G3ZZ Drainage of Peritoneal Cavity, Percutaneous Approach (ICD-10-PCS; principal; 2019-01-02)
DX: K70.31 Alcoholic cirrhosis of liver with ascites (principal); K65.2 Spontaneous bacterial peritonitis; I81 Portal vein thrombosis; K76.6 Portal hypertension; D61.818 Other pancytopenia; N39.0 Urinary tract infection, site not specified; K72.90 Hepatic failure, unspecified without coma; D64.9 Anemia, unspecified; Z79.4 Long term (current) use of insulin; E11.42 Type 2 diabetes mellitus with diabetic polyneuropathy; E11.649 Type 2 diabetes mellitus with hypoglycemia without coma; D53.1 Other megaloblastic anemias, not elsewhere classified; I48.2 Chronic atrial fibrillation; Z79.01 Long term (current) use of anticoagulants; I10 Essential (primary) hypertension
CPT/HCPCS: 36415; 49083; 71045; 74177; 74470; 76705; 80048; 80053; 81001; 82550; 82553; 82948; 83690; 84484; 85025; 85610; 85730; 86850; 86900; 87086; 93005; 99284; C1729; J0696; J1650; J1815; J1817; J7050; Q9967

== ENCOUNTER 2019-11-20 09:05 | Inpatient (IN) | payer MEDICARE, OTHER ==
[2019-11-16 10:54] LABS: BASOPHILS % 0.9 % (0.0-1.0); EOSINOPHILS # (AUTO) 0.2 (0.0-0.4); EOSINOPHILS % 5.3 % (0.0-6.0); HEMATOCRIT 35.2 % (38.2-49.6); HEMOGLOBIN 12.2 g/dL (14.0-18.0); LYMPHOCYTES # (AUTO) 0.8 (1.0-3.2); LYMPHOCYTES % 26.3 % (18.0-39.1); MEAN CORPUSCULAR HEMOGLOBIN 33.3 pg (28-32); MEAN CORPUSCULAR HGB CONC 34.7 g/dL (31-35); MEAN CORPUSCULAR VOLUME 96.2 fL (81-99); MONOCYTES # (AUTO) 0.3 (0.2-0.8); MONOCYTES % 9.4 % (4.4-11.3); NEUTROPHILS # (AUTO) 1.9 (2.1-6.9); NEUTROPHILS % 57.8 % (38.7-80.0); RED BLOOD COUNT 3.66 x10e6/uL (4.3-5.7); RED CELL DISTRIBUTION WIDTH 13.6 % (11.7-14.4)
[2019-11-16 11:14] LABS: INR 1.05; PROTHROMBIN TIME 14.4 seconds (11.9-14.5)
[2019-11-16 11:24] LABS: ALBUMIN 2.5 g/dL (3.5-5.0); ALBUMIN/GLOBULIN RATIO 0.7 (0.8-2.0); ANION GAP 10.7 mmol/L (8-16); CALCIUM 8.9 mg/dL (8.4-10.2); CREATININE, SERUM 1.6 mg/dL (0.72-1.25); POTASSIUM 4.7 mmol/L (3.5-5.1)
[2019-11-16 12:23] LABS: PLATELET ESTIMATE MARKEDLY DECREASED; PLATELET MORPHOLOGY COMMENT NORMAL
[2019-11-16 13:25] LABS: PLATELET COUNT 38 x10e3/uL (140-360)
[~2019-11-20] VITALS: Ht 167.6 cm; Wt 104.8 kg
[2019-11-20] VITALS (11 sets, daily range): BP systolic 92–140; BP diastolic 61–80
[~2019-11-20 09:05] MED LIST changes: +LOVENOX60 MG/0.6 SC
[2019-11-20] MEDS ORDERED: INSULIN REGULAR, HUMAN 100 UNIT/1 ML 3ML VIAL ONE (09:57)
[2019-11-20] MEDS ORDERED: PANTOPRAZOLE 40 MG 10ML VIAL ONE (11:42)
[2019-11-20] MEDS ORDERED: CEFTRIAXONE SOD 1 GM/NS 50 ML 100 ML IV ONE (11:54)
[2019-11-20] MEDS ORDERED: SODIUM CHLORIDE 0.9% 1000ML 1,000 ML ONE ×2 (12:01→23:28)
--- NOTE | 2019-11-20 12:21 | Diagnostic Imaging Report ---
Chest, 1 view, 11/20/2019. History: Status post CPR and ET tube placement. Comparison: 01/02/2019. Findings: The cardiomediastinal silhouette and pulmonary vasculature are within normal limits for a portable exam. Patchy opacities are present at the bases, left greater than right. ET tube terminates 3 cm above the gabino. There are no acute osseous or soft tissue abnormalities. Impression: ET tube in adequate position. Patchy bibasilar opacities may represent atelectasis or pneumonia. Signed by: Christ De Oliveira on 11/20/2019 12:18 PM
[2019-11-20] MEDS ORDERED: MIDAZOLAM HCL 2 MG/2 ML VIAL ONE ×3 (12:31→14:06)
--- NOTE | 2019-11-20 12:31 | NUR ---
ASSESSMENT: Spiritual distress Pt's son, Bridger, and pt's in waiting room. Pt's family worried about pt's health. Kick Press Operator provided calming presence and information on availability of spiritual care. Provided business card. Will follow as able. MATT Reddylain Spiritual Care Department O: [phone]
[2019-11-20 12:42] LABS: BASOPHILS % 0.4 % (0.0-1.0); EOSINOPHILS # (AUTO) 0.2 (0.0-0.4); EOSINOPHILS % 3.3 % (0.0-6.0); HEMATOCRIT 38.6 % (38.2-49.6); HEMOGLOBIN 13.1 g/dL (14.0-18.0); LYMPHOCYTES # (AUTO) 0.7 (1.0-3.2); LYMPHOCYTES % 13.7 % (18.0-39.1); MEAN CORPUSCULAR HEMOGLOBIN 33.3 pg (28-32); MEAN CORPUSCULAR HGB CONC 33.9 g/dL (31-35); MEAN CORPUSCULAR VOLUME 98.2 fL (81-99); MONOCYTES # (AUTO) 0.5 (0.2-0.8); NEUTROPHILS # (AUTO) 3.9 (2.1-6.9); NEUTROPHILS % 71.5 % (38.7-80.0); PLATELET COUNT 53 x10e3/uL (140-360); RED BLOOD COUNT 3.93 x10e6/uL (4.3-5.7); RED CELL DISTRIBUTION WIDTH 14.2 % (11.7-14.4)
[2019-11-20 13:01] LABS: ALBUMIN 2.4 g/dL (3.5-5.0); ALBUMIN/GLOBULIN RATIO 0.6 (0.8-2.0); ANION GAP 13.2 mmol/L (8-16); CALCIUM 8.3 mg/dL (8.4-10.2); CREATININE, SERUM 1.76 mg/dL (0.72-1.25); POTASSIUM 5.2 mmol/L (3.5-5.1)
[2019-11-20] MEDS ORDERED: PROPOFOL IV EMULSION 10 MG/ML 20 ML VIAL ONE ×3 (13:25→14:22)
[2019-11-20 13:33] LABS: MAGNESIUM 1.9 MG/DL (1.3-2.1)
[2019-11-20] MEDS ORDERED: PROPOFOL IV EMULSION 10MG/ML 100 ML IV SCH (14:00)
[2019-11-20] MEDS ORDERED: FENTANYL CITRATE/PF 100MCG/2 ML INJ ONE (14:06)
[2019-11-20] MEDS ORDERED: SUCCINYLCHOLINE CHLORIDE 20 MG/ML 10ML VIAL ONE (14:22)
[2019-11-20] MEDS ORDERED: NALOXONE HCL INJ 0.4 MG/ML AMP ONE (14:22)
[2019-11-20] MEDS ORDERED: PHENYLEPHRINE HCL 1% 10 MG/ML VIAL ONE (14:22)
[2019-11-20] MEDS ORDERED: LIDOCAINE HCL 2% LOCAL INJ 5 ML SDV VIAL INJ ONE (14:22)
[2019-11-20] MEDS ORDERED: FLUMAZENIL 0.5MG/ 5ML VIAL ONE (14:22)
[2019-11-20] MEDS ORDERED: ALBUMIN 25% 25GM 100ML 0.25 GM/ML BTL IV ONE (14:45)
[2019-11-20] MEDS ORDERED: DEXTROSE 50% SYRINGE 50 ML IV PRN (15:00)
[2019-11-20] MEDS ORDERED: LACTULOSE SYRUP 20 GM/30 ML UDC PO PRN (15:15)
[2019-11-20] MEDS ORDERED: ALBUMIN 25% 25GM 100ML 100 ML IV ONE (15:30)
[2019-11-20] MEDS: RIFAXIMIN 550 MG TABLET PO SCH (16:20)
[2019-11-20] MEDS: PROPRANOLOL HCL 10 MG TAB PO SCH (16:20)
[2019-11-20] MEDS: INSULIN LISPRO 100 UNIT/1 ML 3ML VIAL SQ SCH ×2 (16:30→17:38)
[2019-11-20] MEDS ORDERED: INSULIN LISPRO 100 UNIT/1 ML 3ML VIAL SQ SCH (16:30)
[2019-11-20] MEDS: PANTOPRAZOLE 40 MG 10ML VIAL IV SCH (16:52)
[2019-11-20] MEDS ORDERED: LACTULOSE SYRUP 20 GM/30 ML UDC PO SCH (17:00)
--- NOTE | 2019-11-20 18:25 | NUR ---
Pt arrived to ICU at 1500 from PACU. Pt intubated and sedated. Orders given for gleason catheter and ABG. Dr. Dalia eckert called with ABG results, orders give for restraints.
--- NOTE | 2019-11-20 19:15 | Consultation ---
DATE OF CONSULTATION: 11/20/2019 Pulmonary Critical Care Consultation CHIEF COMPLAINT: Brief cardiopulmonary arrest after endoscopy, requiring endotracheal intubation. HISTORY OF PRESENT ILLNESS: The patient is a 58-year-old man. He has a history of cirrhosis. He has required a paracentesis in the past. He has had upper endoscopies in the past as well with only mild varices. He went for a repeat upper endoscopy today to evaluate his varices. Apparently, he tolerated the procedure well and did not require any sclerosis or treatment. However, at the very end of the procedure he became apneic and pulseless. The staff gave epi and atropine. They did CPR very briefly and reintubated the patient. He regained his pulse and was sent to the recovery room on a mechanical ventilator. The patient is now in the recovery room. He is awake and moving all extremities, but does not follow commands well. PAST SURGICAL HISTORY: 1. Status post toe amputation. 2. Status post transmetatarsal amputation. PAST MEDICAL HISTORY: 1. Diabetes requiring treatment with insulin. 2. Cirrhosis with portal hypertension and varices. 3. No prior cardiac history. The patient had an echocardiogram within the last several months that showed a normal ejection fraction and no valvular abnormalities. SOCIAL HISTORY: The patient is not a smoker. The patient quit drinking many years ago. His and sons are here at the hospital. ALLERGIES: THERE ARE NO KNOWN DRUG ALLERGIES. REVIEW OF SYSTEMS: There was no history of fever or headache. The patient never had chest pain. There was no difficulty breathing. There was no nausea or vomiting. There is no leg edema. PHYSICAL EXAMINATION: VITAL SIGNS: The patient is afebrile. He is now on a mechanical ventilator. He is hemodynamically stable. His vital signs are within normal range. HEENT: Shows no facial swelling or erythema. CARDIAC: Reveals a regular rate and rhythm with normal S1 and S2. LUNGS: Auscultation of lungs reveals decreased breath sounds at the bases. There is no wheezing. ABDOMEN: Soft and nontender. There is no rebound or guarding. EXTREMITIES: Shows 1+ edema. RADIOGRAPHIC DATA: Chest x-ray shows possible bibasilar infiltrates. LABORATORY DATA: Preoperative creatinine was 1.6. The electrolytes are within normal limits. CBC was normal. IMPRESSION: 1. Cirrhosis with portal hypertension and varices. 2. Bradycardia and brief cardiac arrest. 3. Hepatorenal syndrome type 2. 4. Diabetes requiring insulin. PLAN: 1. Continue mechanical ventilation with sedation. 2. EKG and serial cardiac enzymes. 3. Cardiology evaluation. 4. Repeat electrolytes, BUN, creatinine and blood tests. 5. Begin antibiotics for possible aspiration pneumonia. 6. Continue prior regimen for cirrhosis. 7. Continue insulin and blood sugar checks. 8. Case discussed with Gastroenterology, anesthesia, nursing, patient's , patient's sons, and Internal Medicine. Aris Briceno MD [facility]/MODL /[id number]
[2019-11-20] MEDS: SODIUM CHLORIDE 0.9% 1000ML 1,000 ML IV SCH (20:00)
[2019-11-20] MEDS ORDERED: GABAPENTIN 300 MG CAP PO SCH (21:00)
[2019-11-20] MEDS ORDERED: GABAPENTIN 100 MG CAP PO SCH (21:00)
--- NOTE | 2019-11-20 21:20 | Consultation ---
DATE OF CONSULTATION: 11/20/2019 Cardiology Consultation CHIEF COMPLAINT: The patient is a 58-year-old with some respiratory distress. HISTORY OF PRESENT ILLNESS: The patient is a 58-year-old with known alcoholic cirrhosis and esophageal varices, who was undergoing an endoscopy. During the endoscopy, the patient became hypertensive, apneic and bradycardic. The procedure was subsequently aborted and the patient was intubated and transferred to the ICU. The patient has had no chest pain and no syncope. No dizziness. No nausea. No vomiting. PAST MEDICAL HISTORY: Significant for: 1. Alcoholic cirrhosis. 2. Known esophageal varices. 3. Thrombocytopenia. 4. Ascites. SOCIAL HISTORY: The patient has been a heavy drinker in the past. The patient has been a smoker in the past. PHYSICAL EXAMINATION: GENERAL: The patient is an intubated male on propofol. VITAL SIGNS: The patient's blood pressure is 93/54, pulse was 76, and temperature was 96.4. HEAD, EARS, EYES, NOSE, AND THROAT: The patient's cranium was normocephalic and atraumatic. Extraocular muscles were intact. Sclerae were anicteric. NECK: Supple. No jugular venous distention. No carotid bruits. CHEST: Demonstrated rhonchi bilaterally. CARDIAC: Demonstrated normal S1 and S2 with a short 2/6 systolic murmur. ABDOMEN: Demonstrated ascites. No tenderness. No masses. EXTREMITIES: With 1+ edema bilaterally NEUROLOGIC: The patient was heavily sedated on propofol, was able to move his extremities. DIAGNOSTIC DATA: The patient's EKG demonstrated normal sinus rhythm with nonspecific ST and T-wave changes. IMPRESSION: The patient is a 58-year-old with severe cirrhosis and respiratory compromise during an endoscopy. I do not feel that the patient's dyspnea is related to cardiac ischemia. I suspect the patient's bradycardia was secondary to hypoxia. An echocardiogram has been ordered to assess the left ventricular size and function and cardiac enzymes have been ordered. Bridger Briceno MD DS/MODL /[id number] cc: MD Jackeline Uribe MD
[2019-11-20] MEDS: PROPOFOL IV EMULSION 100 ML IV SCH ×2 (21:50→23:40)
[2019-11-20] MEDS: CEFTRIAXONE SOD 1 GM/NS 50 ML 50 ML IV SCH (22:03)
[2019-11-20] MEDS: INSULIN GLARGINE 100 UNITS/ML VIAL SQ SCH (22:04)
[2019-11-21] VITALS (26 sets, daily range): BP systolic 99–166; BP diastolic 37–108
[2019-11-21 00:52] LABS: ANION GAP 13.1 mmol/L (8-16); CALCIUM 7.8 mg/dL (8.4-10.2); CREATININE, SERUM 1.72 mg/dL (0.72-1.25)
[2019-11-21 00:55] LABS: POTASSIUM 4.1 mmol/L (3.5-5.1)
[2019-11-21] MEDS: INSULIN LISPRO 100 UNIT/1 ML 3ML VIAL SQ SCH ×4 (01:13→18:00)
[2019-11-21] MEDS: PROPOFOL IV EMULSION 100 ML IV SCH ×2 (01:45→04:38)
--- NOTE | 2019-11-21 04:01 | Consultation ---
DATE OF CONSULTATION: 11/20/2019 Nephrology Consultation REASON FOR CONSULTATION: Acute kidney injury, status post cardiac arrest. HISTORY OF PRESENT ILLNESS: A 58-year-old male, morbidly obese, has multiple comorbidities, of note has underlying liver cirrhosis with portal hypertension, type 2 diabetes. No prior cardiac history, apparently was in the process of getting an EGD today. Towards the end of the procedure, the patient became very apneic, according to the records became pulseless in which a Code Blue was called. The patient had a brief episode of CPR and was immediately reintubated. He regained pulse in the recovery room on a mechanical ventilator. He was able to follow commands according to the records with no issues. I do not have any family at bedside to discuss prior renal issues. No reports of any NSAID or any [id number] medications. He does have a history of type 2 diabetes, on insulin. In reviewing his chart prior, creatinine approximately a year ago was approximately 1. Over the course of the year, I do not have any other record. The patient was seen and evaluated at bedside in the ICU, is currently intubated on propofol and he is following commands according to the nursing staff. REVIEW OF SYSTEMS: Pertinent positives: Status post cardiac arrest. Unable to obtain the rest of 14-point review of systems at this time. ALLERGIES: NO KNOWN DRUG ALLERGIES. HOME MEDICATIONS: 1. Ergocalciferol. 2. Furosemide. 3. Tramadol. 4. Vitamin D. 5. Insulin Tresiba. 6. Omeprazole. 7. Propranolol. 8. Rifaximin. 9. Spironolactone. PAST MEDICAL HISTORY: Liver cirrhosis, type 2 diabetes on insulin. PAST SURGICAL HISTORY: Status post toe amputation, status post metatarsal amputation. SOCIAL HISTORY: Nonsmoker. Quit drinking many years ago. No reports of any drugs. FAMILY HISTORY: Unable to obtain. PHYSICAL EXAMINATION: VITAL SIGNS: Temperature is 99.7, pulse 76, respiratory rate is 18, blood pressure 140/84, pulse ox 100%. He is on mechanical ventilator, FiO2 of 18. GENERAL: Currently intubated and sedated. PULMONARY: Intubated and sedated on a mechanical ventilator. CARDIOVASCULAR: Positive S1 and S2. No murmurs, rubs, or gallops appreciated. ABDOMEN: Soft, nondistended, and nontender to palpation. Bowel sounds present. MUSCULOSKELETAL: Unable to assess. NEUROLOGIC: Unable to assess. SKIN: Intact. Warm to touch. Good cap refill. PSYCHIATRIC: Intubated and sedated. EXTREMITIES: No edema appreciated. LABORATORY DATA: White count 5.3, hemoglobin 13, hematocrit is 38, platelets 53. Coagulation; PT 14, INR 1, PTT 31. Chemistry; sodium 139, potassium 5.2, chloride 112, bicarb 19, anion gap of 13, BUN is 31, creatinine is 1.76, glucose is 229, calcium 8.3, magnesium 1.9, AST 38, ALT 29, alkaline phosphatase 169. Troponin was 0.426. Total protein 6.2. SEROLOGY: Coronavirus PCR not detected. IMAGING STUDY: Chest x-ray, ET tube in place. IMPRESSION: 1. Acute kidney injury versus chronic kidney disease, now status post cardiac arrest. 2. Status post cardiac arrest, unknown cardiac history. 3. Type 2 diabetes, insulin dependent. 4. Metabolic acidosis. 5. Mild hyperkalemia. PLAN: At this time, the patient is currently on IV fluids. He has good urine output documented approximately 350 mL and when I evaluated him, he had significant amount of urine in the Grady as well. I will continue with IV fluids for now. Get a renal ultrasound to evaluate for any obstruction or any other causes. His blood pressure is stable. Avoid nephrotoxic agents. I will go ahead and get a stat chemistry now to evaluate for worsening hyperkalemia. I discussed this plan of care with nursing staff. I discontinued the Aldactone and the gabapentin. We will continue to monitor the patient very closely. Thank you so much for this consultation. We will continue to follow with you. MD CELIO Blackman/TREV /[id number]
--- NOTE | 2019-11-21 05:43 | Diagnostic Imaging Report ---
EXAMINATION: CHEST SINGLE (PORTABLE) INDICATION: ^resp failure ^[id number] ^[id number] COMPARISON: 11/20/2019 FINDINGS: AP view TUBES and LINES: Stable endotracheal tube. LUNGS: Low lung volumes. Pulmonary vascular congestion. PLEURA: No pneumothorax. Suspected small bilateral pleural effusions. HEART AND MEDIASTINUM: The cardiomediastinal silhouette is enlarged, accentuated by low lung volumes. BONES AND SOFT TISSUES: No acute osseous lesion. Soft tissues are unremarkable. UPPER ABDOMEN: No free air under the diaphragm. IMPRESSION: Enlarged cardiomediastinal silhouette and pulmonary vascular congestion, accentuated by low lung volumes. Suspected small bilateral pleural effusions. Underlying pneumonia cannot be excluded. Signed by: Dr. Ankur Doan MD on 11/21/2019 5:40 AM
[2019-11-21 05:50] LABS: ALBUMIN 2.3 g/dL (3.5-5.0); ALBUMIN/GLOBULIN RATIO 0.8 (0.8-2.0); ANION GAP 11.9 mmol/L (8-16); CALCIUM 7.7 mg/dL (8.4-10.2); CREATININE, SERUM 1.59 mg/dL (0.72-1.25); POTASSIUM 3.9 mmol/L (3.5-5.1)
[2019-11-21] MEDS ORDERED: SPIRONOLACTONE 25 MG TAB PO SCH (06:00)
[2019-11-21 06:09] LABS: BASOPHILS % 0.4 % (0.0-1.0); EOSINOPHILS # (AUTO) 0.1 (0.0-0.4); EOSINOPHILS % 1.1 % (0.0-6.0); LYMPHOCYTES # (AUTO) 0.8 (1.0-3.2); LYMPHOCYTES % 15.6 % (18.0-39.1); MEAN CORPUSCULAR HEMOGLOBIN 33.5 pg (28-32); MEAN CORPUSCULAR HGB CONC 33.3 g/dL (31-35); MEAN CORPUSCULAR VOLUME 100.6 fL (81-99); MONOCYTES # (AUTO) 0.5 (0.2-0.8); MONOCYTES % 9.5 % (4.4-11.3); NEUTROPHILS # (AUTO) 3.8 (2.1-6.9); RED BLOOD COUNT 3.28 x10e6/uL (4.3-5.7); RED CELL DISTRIBUTION WIDTH 14.6 % (11.7-14.4)
[2019-11-21 06:12] LABS: PLATELET COUNT 40 x10e3/uL (140-360)
--- NOTE | 2019-11-21 06:49 | NUR ---
Notified Dr. Dalia Briceno of critical plts this morning. new order to run cardiac markers, titrate and hold sedation for extubation. Respiratory to change vent settings to pressure support of 10 and CPAP of 5. Notified RT and day RN. Orders placed. Sedation titrated.
--- NOTE | 2019-11-21 07:00 | NUR ---
Bedside nursing report received from Mary BREEN. Propofol stopped, patient waking up from sedation. Opens eyes to verbal stimuli. Nods head appropriately to questions. 0710: RT at bedside suctioning pt, PEEP: 5, FIO 40%, PS:10.
[2019-11-21 07:17] LABS: CREATINE KINASE MB 7.9 ng/mL (0-5.0)
--- NOTE | 2019-11-21 07:25 | NUR ---
Dr. Briceno evaluated pt, RT present. Pt extubated @ 0725 without complications. Pt awake and immediately able to speak. Pt answering questions appropriately. Pt placed on 2L/NC Sats: 95-96%. Informed patient that I would contact family and oriented him to call hwang and immediate surroundings.
--- NOTE | 2019-11-21 07:40 | NUR ---
Pt receiving renal ultrasound.
--- NOTE | 2019-11-21 08:07 | Progress Note ---
DATE: 11/21/2019 SUBJECTIVE: The patient is awake this morning and tolerating spontaneous breathing trial well. He was seen by Cardiology yesterday. They feel his bradycardia was probably related to a vagal reaction or the anesthetics. The patient was also seen by Nephrology yesterday. PHYSICAL EXAMINATION: VITAL SIGNS: The blood pressure is 112/75 and the saturation is 95% after being extubated on 2 L. HEENT: Shows no facial swelling or erythema. CARDIAC: Reveals regular rate and rhythm with normal S1 and S2. LUNGS: Auscultation of lungs reveals rhonchorous breath sounds bilaterally. There is no wheezing. ABDOMEN: Soft and nontender. There is no rebound or guarding. EXTREMITIES: Shows no leg edema or calf tenderness. There is no cyanosis or clubbing. SKIN: Shows no rashes. NEUROLOGICAL: Shows no focal abnormalities. LABORATORY DATA: BUN to creatinine ratio is 34 to 1.59. CO2 is 19 and the chloride is 114. Albumin is 2.3. White blood cell count is 5.6 and the hemoglobin is 11. The platelet count is 40. IMPRESSION: 1. Cirrhosis with portal hypertension. 2. Acute kidney injury. 3. Type 2 diabetes. 4. History of bradycardia following endoscopy. PLAN: 1. Continue nasal cannula. 2. Out of bed as tolerated. 3. Continue antibiotics for possible aspiration pneumonitis. 4. Await further input from consultants. Aris Briceno MD [facility]/ELLEL /[id number]
--- NOTE | 2019-11-21 08:19 | Diagnostic Imaging Report ---
EXAM: Renal Ultrasound INDICATION: ^GEOVANNI ^[id number] ^[id number] COMPARISON: None TECHNIQUE: Transverse and longitudinal images of the kidneys and bladder were obtained. FINDINGS: Right Kidney: Length: 11.5 cm Appearance: Normal echogenicity. Collecting system: No hydronephrosis Stones: None Cyst/Mass: None Left Kidney: Length: 12.6 cm Appearance: Normal echogenicity. Collecting system: No hydronephrosis Stones: None Cyst/Mass: None Bladder: Grady catheter in the decompressed bladder. Prostate not well visualized. IMPRESSION: No hydronephrosis or renal calculi. Grady catheter in the decompressed bladder. Signed by: Jose Angel Dunlap MD on 11/21/2019 8:16 AM
--- NOTE | 2019-11-21 08:19 | NUR ---
Pt receiving bedside echo. VS stable.
[2019-11-21] MEDS: PANTOPRAZOLE 40 MG 10ML VIAL IV SCH ×2 (08:53→18:39)
[2019-11-21] MEDS: SODIUM CHLORIDE 0.9% 1000ML 1,000 ML IV SCH (09:00)
[2019-11-21] MEDS ORDERED: PANTOPRAZOLE SOD 40 MG TABEC PO SCH (09:00)
--- NOTE | 2019-11-21 09:51 | NUR ---
Patients spouse at bedside.
--- NOTE | 2019-11-21 10:50 | NUR ---
Follow up visit. Pt's at bedside. Provided pastoral presence and emotional support. No need to follow at this time. MATT WOLF Flange Machine Operator Spiritual Care Department O: [phone]
[2019-11-21] MEDS: PROPRANOLOL HCL 10 MG TAB PO SCH ×2 (11:27→18:39)
[2019-11-21] MEDS: RIFAXIMIN 550 MG TABLET PO SCH ×2 (11:27→18:39)
[2019-11-21] MEDS ORDERED: HYDROCODONE/APAP 5MG-325MG TAB PO NR (11:45)
--- NOTE | 2019-11-21 12:00 | NUR ---
Noted pt to have near-syncope event and bradycardia after working with PT, pt was taken up 12 steps with PT. Noted patient's HR in mid 50's and pt drooling, pt sitting on side of bed with PT. Pt reports he feels weak, and dizzy. Notified Dr. Lauri Briceno and CHILD DEVELOPMENT INSTRUCTOR. Dr. Roca's PA also notified. Orthostatic VS performed showing negative tilt.
[2019-11-21] MEDS: INSULIN GLARGINE 100 UNITS/ML VIAL SQ SCH (21:00)
[2019-11-21] MEDS: CEFTRIAXONE SOD 1 GM/NS 50 ML 50 ML IV SCH (21:20)
--- NOTE | 2019-11-21 23:45 | Progress Note ---
DATE: 11/21/2019 Nephrology Progress Note SUBJECTIVE: The patient was seen and evaluated early this morning. The patient was extubated during my evaluation. He was alert, awake, and oriented during my exam. PHYSICAL EXAMINATION: VITAL SIGNS: Temperature is 98.5, pulse 96, respirations 16, blood pressure 157/99, pulse ox 99% on room air. GENERAL: Not in acute distress. Alert and oriented x3. Cooperative on examination. HEENT: Head; normocephalic, atraumatic. Eyes; pupils are equal, round, and reactive to light bilaterally. Extraocular movements intact bilaterally. Throat; no evidence of erythema or exudates in the posterior pharynx. Has poor dentition. NECK: Supple. Good range of motion. PULMONARY: Clear to auscultation bilaterally. No wheezing, no rales, no rhonchi, no crackles appreciated. CARDIOVASCULAR: Positive S1 and S2. No murmurs, rubs, or gallops appreciated. ABDOMEN: Soft, nondistended, and nontender to palpation. Bowel sounds present. MUSCULOSKELETAL: Strength is 5/5 throughout. No evidence of any muscle deficits on examination. No weakness appreciated. NEUROLOGIC: Cranial nerve II through XII grossly intact. No evidence of any neurological deficits on exam. SKIN: Intact. Warm to touch. Good cap refill. PSYCHIATRIC: Normal affect and mood. EXTREMITIES: No edema. Good range of motion throughout. LABORATORY DATA: Show white count 5.2, hemoglobin 11, hematocrit is 33, platelets of 40. Chemistry; sodium 141, potassium 3.9, chloride 114, bicarb 19, anion gap of 11, BUN 34, creatinine is 1.59 down trending from 1.72. Calcium is 7.7. Troponin was slightly elevated at 0.771. SEROLOGIES: Coronavirus is negative. Urine output good, reported 1.7 L. DIAGNOSTIC STUDIES: Renal ultrasound shows right kidney 11.5 cm, left kidney 12.6 cm. No hydronephrosis or renal calculi. Grady catheter and a decompressed bladder. IMPRESSION: 1. Acute kidney injury with underlying chronic kidney disease, stage 3 secondary to hypotension from recent cardiac arrest. 2. Type 2 diabetes, insulin dependent. 3. Metabolic acidosis. 4. Mild hyperkalemia. PLAN: At this time, his renal function improved. Electrolytes are stable. He is currently extubated. Continue with IV fluids. His medications were renally dosed appropriately. His potassium is currently stable. We will monitor very closely. MD CELIO Blackman/TREV /[id number]
[2019-11-22] VITALS (22 sets, daily range): BP systolic 101–153; BP diastolic 65–102
[2019-11-22] MEDS: HYDROCODONE/APAP 5MG-325MG TAB PO PRN ×3 (00:54→22:00)
[2019-11-22 05:00] LABS: BASOPHILS % 0.7 % (0.0-1.0); EOSINOPHILS # (AUTO) 0.1 (0.0-0.4); EOSINOPHILS % 2.2 % (0.0-6.0); HEMATOCRIT 35.1 % (38.2-49.6); HEMOGLOBIN 11.6 g/dL (14.0-18.0); LYMPHOCYTES # (AUTO) 0.9 (1.0-3.2); LYMPHOCYTES % 20.3 % (18.0-39.1); MEAN CORPUSCULAR HEMOGLOBIN 33.4 pg (28-32); MEAN CORPUSCULAR VOLUME 101.2 fL (81-99); MONOCYTES # (AUTO) 0.5 (0.2-0.8); MONOCYTES % 10.2 % (4.4-11.3); NEUTROPHILS % 66.2 % (38.7-80.0); RED BLOOD COUNT 3.47 x10e6/uL (4.3-5.7); RED CELL DISTRIBUTION WIDTH 14.1 % (11.7-14.4)
[2019-11-22 05:06] LABS: PLATELET COUNT 34 x10e3/uL (140-360)
[2019-11-22 05:21] LABS: ALBUMIN 2.2 g/dL (3.5-5.0); ALBUMIN/GLOBULIN RATIO 0.7 (0.8-2.0); ANION GAP 10.9 mmol/L (8-16); CALCIUM 7.7 mg/dL (8.4-10.2); CREATININE, SERUM 1.26 mg/dL (0.72-1.25); MAGNESIUM 1.8 MG/DL (1.3-2.1); POTASSIUM 3.9 mmol/L (3.5-5.1)
[2019-11-22 05:49] LABS: THYROID STIMULATING HORMONE 1.979 uIU/mL (0.350-4.940)
--- NOTE | 2019-11-22 08:47 | Progress Note ---
DATE: 11/22/2019 SUBJECTIVE: The patient complains of some sternal and medial rib pain following a CPR. He complains of weakness and pain in his legs. He says he has not stood up. He had to walk. He is urinating well. PHYSICAL EXAMINATION: VITAL SIGNS: Blood pressure is 127/82, saturation is 98% on 2 L and the pulse is 85. HEENT: Shows no facial swelling or erythema. CARDIAC: Reveals regular rate and rhythm with normal S1, S2. There is some tenderness in the mid and lower sternal area. LUNGS: Auscultation of lungs shows decreased breath sounds at the bases. ABDOMEN: Soft and nontender. There is no rebound or guarding. EXTREMITIES: Shows some mild leg edema. LABORATORY DATA: Platelet count is 34 and hemoglobin is 11.6. The BUN to creatinine ratio is 26 to 1.26. The carbon dioxide is 19. Albumin is 2.2. IMPRESSION: 1. Sternal and rib trauma following CPR. 2. Bradycardia and arrest following an endoscopy. 3. Acute on chronic kidney injury. 4. Type 2 diabetes. 5. Cirrhosis with portal hypertension. PLAN: 1. X-rays of the sternum and chest. 2. Physical therapy. 3. Pain control. 4. Continue current regimen for cirrhosis. 5. Continue to monitor renal failure. 6. Transfer out of intensive care unit. Aris Briceno MD [facility]/TREV /[id number]
--- NOTE | 2019-11-22 09:13 | Diagnostic Imaging Report ---
EXAMINATION: CHEST SINGLE (PORTABLE) INDICATION: Alcoholic cirrhosis COMPARISON: Chest radiograph 11/21/2019 FINDINGS: LINES/TUBES:EKG leads overlie the chest. Endotracheal tube has been removed. LUNGS:The lungs are moderately inflated. There is perihilar fullness and indistinctness of the pulmonary vasculature. PLEURA:No pleural effusion or pneumothorax. MEDIASTINUM:The cardiomediastinal silhouette appears unchanged in size and shape. BONES/SOFT TISSUES:No acute osseous injury. ABDOMEN:No free air under the diaphragm. IMPRESSION: Endotracheal tube has been removed. Otherwise, no significant interval change. Signed by: Jose Angel Dunlap MD on 11/22/2019 9:10 AM
[2019-11-22] MEDS: INSULIN LISPRO 100 UNIT/1 ML 3ML VIAL SQ SCH ×5 (09:54→21:00)
[2019-11-22] MEDS: PANTOPRAZOLE 40 MG 10ML VIAL IV SCH ×2 (10:00→17:52)
[2019-11-22] MEDS: RIFAXIMIN 550 MG TABLET PO SCH ×2 (10:01→17:52)
[2019-11-22] MEDS: PROPRANOLOL HCL 10 MG TAB PO SCH ×2 (10:01→17:00)
--- NOTE | 2019-11-22 11:37 | NUR ---
PT at bedside evaluating pt.
--- NOTE | 2019-11-22 13:38 | Progress Note ---
DATE: 11/21/2019 SUBJECTIVE: Mr. Hussein this morning, was awake, alert, and oriented. He was extubated, hemodynamically stable, afebrile. I instructed the nurse to start GI soft diet and hopefully soon we will get him out of the ICU. Jackeline Ma MD RD/MODDalia /[id number]
--- NOTE | 2019-11-22 13:38 | Progress Note ---
DATE: 11/22/2019 SUBJECTIVE: Mr. Hussein continued to be extubated, awake, alert, oriented, afebrile, hemodynamically stable. Tolerating his diet well. Has not had a bowel movement, passing gases. However, when he walked today for short periods, he become bradycardiac, brought back to his bed and soon his rhythm back to normal. No clear episode of the reason for the episode of bradycardia and presyncope. Cardiology was informed. We will wait on their decision. LABORATORY TESTS: Today, white cell count is 5, hemoglobin 11, hematocrit 35, and platelets 34 because of the cirrhosis. BUN 26, creatinine 1.26, sodium 141, and potassium 3.9. CURRENT MEDICATIONS: He is on rifaximin, propranolol, Protonix, [place] for chest pain due to sequence after his cardiac arrest and chest compression, insulin, ceftriaxone, and lactulose. Nothing to add from GI standpoint except perhaps to hold off on the propranolol until Cardiology see him. Jackeline Ma MD RD/MODL /[id number]
[2019-11-22] MEDS ORDERED: CHLORASEPTIC SPRAY 177 ML BTL MM PRN (14:15)
[2019-11-22] MEDS: SODIUM CHLORIDE 0.9% 1000ML 1,000 ML IV SCH ×2 (15:34→22:08)
--- NOTE | 2019-11-22 19:30 | NUR ---
Received patient stable, no complaints raised.
[2019-11-22] MEDS: INSULIN GLARGINE 100 UNITS/ML VIAL SQ SCH (21:21)
--- NOTE | 2019-11-22 21:55 | NUR ---
Patient transferred to med surg, stable
[2019-11-22] MEDS: CEFTRIAXONE SOD 1 GM/NS 50 ML 50 ML IV SCH (21:57)
--- NOTE | 2019-11-22 22:45 | NUR ---
Pt transferred to room 298 via stretcher. Pt alert and oriented to name, HOB 45 degrees. Pt denies pain at this time. Call light within reach. Call light within reach. Bed low and locked. Addendum: 11/23/19 at 0647 by Frida Dickson RN [id number]
[2019-11-23] VITALS (14 sets, daily range): BP systolic 85–145; BP diastolic 54–85
--- NOTE | 2019-11-23 01:25 | Progress Note ---
DATE: 11/22/2019 Nephrology Progress Note SUBJECTIVE: The patient is doing very well today in the ICU. He is extubated. Alert, awake, and oriented on examination. PHYSICAL EXAMINATION: VITAL SIGNS: Temperature is 98.5, pulse 83, respiratory rate is 19, blood pressure 133/91, and pulse ox 97% on 2 L of nasal cannula. GENERAL: Not in acute distress. Alert and oriented x3. Cooperative on examination. PULMONARY: Clear to auscultation bilaterally. No wheezing, no rales, no rhonchi, no crackles appreciated. CARDIOVASCULAR: Positive S1 and S2. No murmurs, rubs, or gallops appreciated. ABDOMEN: Soft, nondistended, and nontender to palpation. Bowel sounds present. MUSCULOSKELETAL: Strength is 5/5 throughout. No evidence of any muscle deficits on examination. No weakness appreciated. NEUROLOGIC: Cranial nerve II through XII grossly intact. No evidence of any neurological deficits on exam. SKIN: Intact. Warm to touch. Good cap refill. PSYCHIATRIC: Normal affect and mood. EXTREMITIES: No edema. Good range of motion throughout. LABORATORY DATA: Show white count 4.5, hemoglobin 11.6, hematocrit is 35, platelets of 34. Chemistry reviewed shows sodium 140, potassium 3.9, chloride 115, bicarb 19, anion gap of 10, BUN is 26, creatinine 1.26, glucose 165. DIAGNOSTIC STUDIES: Chest x-ray normal. IMPRESSION: 1. Acute kidney injury with underlying chronic kidney disease, stage 3 secondary to hypotension from recent cardiac arrest. 2. Type 2 diabetes, insulin dependent. 3. Metabolic acidosis. 4. Mild hyperkalemia-resolved. PLAN: At this time, his renal function has improved. Electrolytes are stable. Good urine output. Get a.m. labs. Monitor closely. MD CELIO Blackman/TREV /[id number]
[2019-11-23 06:56] LABS: BASOPHILS % 0.6 % (0.0-1.0); EOSINOPHILS # (AUTO) 0.2 (0.0-0.4); EOSINOPHILS % 5.1 % (0.0-6.0); HEMATOCRIT 33.4 % (38.2-49.6); HEMOGLOBIN 11.3 g/dL (14.0-18.0); LYMPHOCYTES # (AUTO) 1.2 (1.0-3.2); LYMPHOCYTES % 24.7 % (18.0-39.1); MEAN CORPUSCULAR HGB CONC 33.8 g/dL (31-35); MEAN CORPUSCULAR VOLUME 97.7 fL (81-99); MONOCYTES # (AUTO) 0.6 (0.2-0.8); MONOCYTES % 11.7 % (4.4-11.3); NEUTROPHILS # (AUTO) 2.7 (2.1-6.9); NEUTROPHILS % 57.7 % (38.7-80.0); RED BLOOD COUNT 3.42 x10e6/uL (4.3-5.7); RED CELL DISTRIBUTION WIDTH 14.2 % (11.7-14.4)
--- NOTE | 2019-11-23 07:05 | NUR ---
BS ROUNDS COMPLETED WITH MORNING NURSE, PT NO ACUTE DISTRESS.
[2019-11-23 07:21] LABS: PLATELET COUNT 35 x10e3/uL (140-360)
[2019-11-23 07:27] LABS: ALBUMIN 2.1 g/dL (3.5-5.0); ALBUMIN/GLOBULIN RATIO 0.6 (0.8-2.0); ANION GAP 9.8 mmol/L (8-16); CALCIUM 7.3 mg/dL (8.4-10.2); CREATININE, SERUM 1.52 mg/dL (0.72-1.25); POTASSIUM 3.8 mmol/L (3.5-5.1)
[2019-11-23] MEDS: INSULIN LISPRO 100 UNIT/1 ML 3ML VIAL SQ SCH ×4 (07:30→21:37)
--- NOTE | 2019-11-23 07:36 | NUR ---
PATIENT IN BED RESTING WITH NO S/S OF DISTRESS. O2 IN PLACE VIA N/C. SCD IN PLACE. BED IN LOWER , CALL LIGHT AT REACH.
[2019-11-23] MEDS: HYDROCODONE/APAP 5MG-325MG TAB PO PRN (09:05)
[2019-11-23] MEDS: RIFAXIMIN 550 MG TABLET PO SCH ×2 (09:12→17:00)
[2019-11-23] MEDS: PANTOPRAZOLE 40 MG 10ML VIAL IV SCH ×2 (09:12→17:00)
[2019-11-23] MEDS: PROPRANOLOL HCL 10 MG TAB PO SCH ×2 (09:12→17:00)
--- NOTE | 2019-11-23 10:22 | Progress Note ---
DATE: 11/23/2019 HISTORY: Mr. Hussein is doing very well awake, alert, oriented, tolerating breakfast, sitting in bed, comfortable. No complaints. Transferred to regular floor. OBJECTIVE: VITAL SIGNS: Temperature 97, blood pressure 140/84. LABORATORY DATA: Blood test today, white cell count 4.7, hemoglobin 11, hematocrit 33, platelet 35 because of cirrhosis. BUN 30, creatinine 1.52. Sodium 139, potassium 3.8, calcium 7.3, AST 57, albumin 2.1. ASSESSMENT/PLAN: From GI standpoint, patient can be discharged home pending the Cardiology opinion regarding the presyncopal episode occurred yesterday while he was still in the ICU. Otherwise, nothing to add from GI standpoint. Jackeline Ma MD RD/MODL /[id number]
--- NOTE | 2019-11-23 11:23 | NUR ---
PATIENT ASSISTED TO THE RESTROOM BY HIS , BACK IN BED WITH CALL LIGHT AT REACH.
[2019-11-23] MEDS: LIDOCAINE 4% PATCH TP SCH (13:16)
[2019-11-23] MEDS ORDERED: MIDAZOLAM HCL 2 MG/2 ML VIAL ONE ×2 (14:55→18:08)
--- NOTE | 2019-11-23 15:00 | NUR ---
AROUND PATIENT WAS AMBULATING IN THE ROOM WITH WALKER ASSISTED BY PT AND STATED C/O BEING DIZZY. ASSISTED TO A CHAIR, DR WEST IN THE ROOM AT THAT TIME. PATIENT BECAME UNRESPONSIVE ON THE CHAIR. RAPID RESPONSE CALLED, O2 IN PLACE VIA N/C AND PATIENT ASSISTED TO BED BY 4 STAFFS. UPON ASSESSMENT, PULSE PRESENT, CODE TEAM IN THE ROOM. BLOOD SUGAR CHECKED WITH THE READING OF 290. B/P 115/112 , HR 102. CODE TEAM ADMINISTERING MEDICATIONS ORDERED. PATIENT INTUBATED AT BED SIDE BY DR WEST.
[2019-11-23] MEDS ORDERED: SODIUM CHLORIDE 0.9% 1000ML 0 ML ONE (15:07)
[2019-11-23] MEDS ORDERED: MIDAZOLAM HCL 2 MG/2 ML VIAL IV STA (15:22)
--- NOTE | 2019-11-23 15:23 | Diagnostic Imaging Report ---
Chest, one view. HISTORY: ^S/P INTUBATION ^[id number] ^[id number] COMPARISON: Radiograph from 11/22/2019 IMPRESSION: The endotracheal tube overlies the right main stem bronchus, consider retraction by 2.5 cm. The bilateral hilar fullness and interstitial opacities are similar to the prior examination. No pleural effusion or pneumothorax. The cardiac silhouette is unchanged. No acute bony abnormality. The stomach is hyperinflated. The findings were discussed with Dr. Briceno on 11/23/2019 3:23 PM. Signed by: Omid Garcia JR, MD on 11/23/2019 3:19 PM
[2019-11-23] MEDS ORDERED: ASPIRIN 81 MG CHEW TAB PO ONE (15:30)
--- NOTE | 2019-11-23 15:30 | NUR ---
PATIENT TRANSFERRED TO ICU AT THIS TIME. REPORT GIVEN AT BED SIDE TO RECEIVING NURSE. PATIENT'S CALLED AND MESSAGE LEFT TO VOICE MAIL.
--- NOTE | 2019-11-23 16:08 | Diagnostic Imaging Report ---
Examination: CT Head without Contrast History:Code Blue Comparison studies:None Technique: Axial images were obtained from the skull base to the vertex. Coronal and sagittal images reconstructed from the axial data. Dose modulation, iterative reconstruction, and/or weight based adjustment of the mA/kV was utilized to reduce the radiation dose to as low as reasonably achievable. Intravenous contrast: None Findings: Scalp/skull: No abnormalities. Extra-axial spaces: No masses. No fluid collections. Brain sulci: Normal Ventricles: No hydrocephalus. Parenchyma: Ill defined hypodensities in the supratentorial white matter are small vessel ischemic changes. No masses, hemorrhage, acute or chronic cortical vascular insults. Sellar/suprasellar region: No abnormalities. Craniocervical junction: Patent foramen magnum. No Chiari one malformation. Incidental findings: Atherosclerotic calcifications in the carotid siphons. Fluid opacification within the posterior nasopharynx and oropharynx. Impression: No acute abnormalities. Chronic findings: Supratentorial white matter small vessel ischemic changes. Generalized volume loss. The images and preliminary report were reviewed and signed by Dr. Bertha Taylor, neuroradiology faculty, on November 23, 2019 at 1941 hours. Signed by: Dr. Bertha Taylor M.D. on 11/23/2019 7:41 PM
[2019-11-23] MEDS ORDERED: PROPOFOL IV EMULSION 50 ML IV ONE (16:28)
[2019-11-23 17:19] LABS: CREATINE KINASE MB 4.4 ng/mL (0-5.0)
[2019-11-23] MEDS ORDERED: LIDOCAINE HCL 2% LOCAL 20 ML VIAL ONE (18:09)
[2019-11-23] MEDS ORDERED: HEPARIN SOD/SOD CHLORIDE 2,000 ML ONE (18:09)
[2019-11-23] MEDS ORDERED: IOPAMIDOL 370 MG/ML 200 ML INFUS..BTL INJ ONE ×2 (18:09→18:22)
[2019-11-23] MEDS ORDERED: FENTANYL CITRATE/PF 100MCG/2 ML INJ ONE (18:09)
[2019-11-23] MEDS ORDERED: SODIUM CHLORIDE 0.9% 1000ML 1,000 ML ONE (18:10)
--- NOTE | 2019-11-23 19:00 | Progress Note ---
DATE: 11/23/2019 SUBJECTIVE: The patient was walking with a walker during physical therapy. He said he felt dizzy. He sat in a chair and his eyes rolled back. He became unresponsive. He had never lost his pulse, but had to be moved back to the bed. He required intubation and mechanical ventilation. After intubation, he required some fluids for his blood pressure. He also required Versed and propofol. The patient's blood pressure is now 40/70. The heart rate is 70 to 80. He is on a PRVC mode of ventilation at a rate of 16 with a tidal volume of 500. PHYSICAL EXAMINATION: HEENT: Shows no facial swelling or erythema. There is no oral endotracheal tube in place. CARDIAC: Reveals regular rate and rhythm with normal S1, S2. LUNGS: Auscultation of lungs reveals rhonchorous breath sounds bilaterally. There is no wheezing. ABDOMEN: Soft and nontender. There is no rebound or guarding. EXTREMITIES: Shows no leg edema or calf tenderness. There is no cyanosis or clubbing. SKIN: Shows no rashes. NEUROLOGICAL: Shows no focal abnormalities, but the patient was not responding. LABORATORY DATA: Platelet count is 35 and the white blood cell count is 4.7. The hemoglobin is 11.3. The BUN to creatinine ratio is 30 to 1.52, and the glucose is 290. The albumin is 2.1. RADIOGRAPHIC DATA: Shows hilar fullness and possible vascular congestion. IMPRESSION: 1. Bradycardia with unresponsiveness. 2. Acute respiratory failure. 3. Possible aspiration pneumonitis. 4. Cirrhosis. 5. Thrombocytopenia. 6. Varices. PLAN: 1. The patient is scheduled to go for his head CT now. 2. Cardiac catheterization is being arranged for later this afternoon. 3. Antibiotics to cover for possible aspiration pneumonia. 4. Continue to monitor hemoglobin and platelet count. 5. Continue to monitor electrolytes. 6. Case discussed with Nursing, Internal Medicine, Administration, Cardiology and family. Greater than 35 minutes in direct critical care time, separate from any procedures performed. Aris Briceno MD LM/TREV /[id number]
[2019-11-23] MEDS ORDERED: PROPOFOL IV EMULSION 100 ML IV ONE (19:10)
--- NOTE | 2019-11-23 19:44 | NUR ---
patient transferred from med surg room 298 after code blue called earlier today. patient transferred toicu intubated and sedated. pt to go to laboratory chemical assistant for cardiac evaluation. at bedside earlier. pt no distress vss.
[2019-11-23] MEDS: PROPOFOL IV EMULSION 10MG/ML 100 ML IV PRN (20:00)
[2019-11-23] MEDS ORDERED: LACTULOSE SYRUP 20 GM/30 ML UDC PO PRN (21:00)
[2019-11-23] MEDS: PIPERACILLIN/TAZO 2.25 GM 50 ML IV SCH (21:36)
[2019-11-23] MEDS: SODIUM CHLORIDE 0.9% 1000ML 1,000 ML IV SCH (21:38)
[2019-11-23] MEDS: INSULIN GLARGINE 100 UNITS/ML VIAL SQ SCH (21:38)
--- NOTE | 2019-11-23 21:50 | Operative Report ---
DATE OF PROCEDURE: 11/23/2019 SURGEON: Aris Briceno MD PROCEDURE: Endotracheal intubation. PREOPERATIVE DIAGNOSIS: Respiratory failure. POSTOPERATIVE DIAGNOSIS: Respiratory failure. CONSENT: Consent was deemed emergent based on the clinical instability. MEDICATIONS: Etomidate 20 mg and vecuronium 10 mg. DESCRIPTION OF PROCEDURE: The patient was not responsive. He was being ventilated with an Ambu bag in an oral airway. He then received vecuronium and etomidate. The 4-0 MAC blade was used to visualize the glottis. A 7.5 endotracheal tube was passed on the second attempt. There was good CO2 return and good breath sounds bilaterally. COMPLICATIONS: None. ESTIMATED BLOOD LOSS: None. Aris Briceno MD [facility]/MODL /[id number]
[2019-11-24] VITALS (25 sets, daily range): BP systolic 84–150; BP diastolic 49–94
[2019-11-24] MEDS ORDERED: PROPOFOL IV EMULSION 100 ML IV ONE ×5 (00:01→21:38)
[2019-11-24] MEDS: PROPOFOL IV EMULSION 10MG/ML 100 ML IV PRN ×5 (00:41→22:31)
--- NOTE | 2019-11-24 01:36 | Progress Note ---
DATE: 11/23/2019 Nephrology Progress Note SUBJECTIVE: The patient was seen earlier this afternoon. He was awake, alert, oriented on exam. He had no complaints at that time. LABORATORY DATA: White count 4.7, hemoglobin 11, hematocrit 33, platelets of 35. Chemistry; sodium 139, potassium 3.8, chloride 112, bicarb 29, anion gap of 9.8. BUN is 30, creatinine is 1.52. Calcium is 7.3. Corrected calcium is greater than 8. LFTs within normal range. IMAGING STUDIES: Chest x-ray shows bilateral hilar fullness and interstitial opacities similar to the prior examination. No pleural effusion or pneumothorax. CT brain shows no acute abnormalities. PHYSICAL EXAMINATION: VITAL SIGNS: During my evaluation, temperature is 98.5, pulse was 89, respiratory rate is 20, blood pressure 145/77. Pulse ox, he was on 99% on room air. GENERAL: Not in acute distress. Alert and oriented x3 during my evaluation. HEENT: Head is normocephalic and atraumatic. Eyes; pupils are equal, round, and reactive to light bilaterally. Extraocular movements intact bilaterally. Throat; no evidence of erythema or exudates in the posterior pharynx. Has poor dentition. NECK: Supple. Good range of motion. PULMONARY: Clear to auscultation bilaterally. No wheezing, no rales, no rhonchi, no crackles appreciated. CARDIOVASCULAR: Positive S1 and S2. No murmurs, rubs, or gallops appreciated. GASTROINTESTINAL: Abdomen is soft, nondistended, and nontender to palpation. Bowel sounds present. MUSCULOSKELETAL: Strength is 5/5 throughout. No evidence of any muscle deficits on examination. No weakness appreciated. NEUROLOGIC: Cranial nerve 2 through 12 are grossly intact. No evidence of any neurological deficits on exam. SKIN: Intact. Warm to touch. Good cap refill. PSYCHIATRIC: Normal affect and mood. EXTREMITIES: No edema. Good range of motion throughout. IMPRESSION: 1. Acute kidney injury with underlying chronic kidney disease, stage 3, secondary to hypotension, recent cardiac arrest, now improved. 2. Type 2 diabetes, insulin dependent. 3. Metabolic acidosis -- resolved. 4. Mild hyperkalemia -- resolved. PLAN: At this time, urine output is good. Get a.m. labs. Electrolytes were stable. I used a fashion journalist to discuss the plan of care with the patient from a renal standpoint. MD CELIO Blackman/TREV /[id number]
--- NOTE | 2019-11-24 01:56 | Operative Report ---
DATE OF PROCEDURE: 11/23/2019 SURGEON: Bridger Briceno MD PROCEDURE: Left heart catheterization. PREOPERATIVE DIAGNOSIS: Cardiac arrest. POSTOPERATIVE DIAGNOSIS: Cardiac arrest. COMPLICATIONS: None. ANESTHESIA: Versed and fentanyl. TECHNIQUE: The right groin was draped and prepped in the usual fashion. The area was anesthetized with lidocaine. Standard Seldinger technique was used to place a 6-[place] sheath into the right femoral artery without difficulty. A JL4 catheter was used to selectively engage the left coronary artery. A 3DRC catheter was used to selectively engage the right coronary artery. A pigtail catheter was used to perform a left ventriculogram. There were no complications. An Angio-Seal device was used for closure. RESULTS: As follows: 1. There is a normal left main trunk. 2. There is a large left anterior descending artery, which gave rise to a medium-sized diagonal branch. 3. There is minimal disease in the left anterior descending artery and diagonal branch. 4. There was a small AV circumflex artery, which gave rise to a small bifurcating obtuse marginal branch. There was minimal disease in the circumflex system. 5. There was a large superdominant right coronary artery with minimal disease. 6. There was normal left ventricular size and function with an ejection fraction of 60%. CONCLUSION: The patient has normal coronary arteries with normal left ventricular size and function. Bridger Briceno MD [facility]/MODL /[id number]
[2019-11-24] MEDS: PIPERACILLIN/TAZO 2.25 GM 50 ML IV SCH ×5 (02:15→23:47)
[2019-11-24 05:43] LABS: BASOPHILS % 0.5 % (0.0-1.0); EOSINOPHILS # (AUTO) 0.2 (0.0-0.4); EOSINOPHILS % 5.1 % (0.0-6.0); HEMATOCRIT 34.5 % (38.2-49.6); HEMOGLOBIN 11.3 g/dL (14.0-18.0); LYMPHOCYTES # (AUTO) 0.8 (1.0-3.2); LYMPHOCYTES % 20.1 % (18.0-39.1); MEAN CORPUSCULAR HEMOGLOBIN 34.2 pg (28-32); MEAN CORPUSCULAR HGB CONC 32.8 g/dL (31-35); MEAN CORPUSCULAR VOLUME 104.5 fL (81-99); MONOCYTES # (AUTO) 0.4 (0.2-0.8); MONOCYTES % 9.9 % (4.4-11.3); NEUTROPHILS # (AUTO) 2.5 (2.1-6.9); NEUTROPHILS % 64.1 % (38.7-80.0); RED CELL DISTRIBUTION WIDTH 14.5 % (11.7-14.4)
[2019-11-24 06:28] LABS: ALBUMIN 1.9 g/dL (3.5-5.0); ALBUMIN/GLOBULIN RATIO 0.6 (0.8-2.0); ANION GAP 10.7 mmol/L (8-16); CALCIUM 7.3 mg/dL (8.4-10.2); CREATININE, SERUM 1.55 mg/dL (0.72-1.25); PHOSPHORUS 3.4 MG/DL (2.3-4.7); POTASSIUM 3.7 mmol/L (3.5-5.1)
--- NOTE | 2019-11-24 06:34 | Diagnostic Imaging Report ---
EXAM: Abdomen 1 View INDICATION: ^NGT ^[id number] ^[id number] ^Y COMPARISON: None IMPRESSION: Very limited study due to body habitus and underpenetration. Questionable tip of nasogastric tube, projecting over gastric antrum. Alternatively, this could be artifactual. Recommend repeat x-ray to confirm. Signed by: Dr. Ankur Doan MD on 11/24/2019 6:31 AM
[2019-11-24 06:51] LABS: PLATELET COUNT 46 x10e3/uL (140-360)
[2019-11-24] MEDS ORDERED: LORAZEPAM INJ 2 MG/ML VIAL ONE ×2 (08:03→16:13)
[2019-11-24] MEDS: PANTOPRAZOLE 40 MG 10ML VIAL IV SCH ×2 (08:16→17:53)
[2019-11-24] MEDS: PROPRANOLOL HCL 10 MG TAB PO SCH (08:16)
[2019-11-24] MEDS: RIFAXIMIN 550 MG TABLET PO SCH ×2 (08:16→17:53)
[2019-11-24] MEDS: LIDOCAINE 4% PATCH TP SCH (08:16)
[2019-11-24] MEDS: LACTULOSE SYRUP 20 GM/30 ML UDC PO SCH ×4 (08:30→23:47)
--- NOTE | 2019-11-24 08:54 | Diagnostic Imaging Report ---
EXAMINATION: CHEST SINGLE (PORTABLE) INDICATION: ^intubated ^[id number] ^[id number] COMPARISON: 11/23/2019 FINDINGS: AP view TUBES and LINES: Endotracheal tube with tip overlying the mid trachea, 4.9 cm above the gabino. Infradiaphragmatic NG OG tube is not well visualized due to underpenetration. LUNGS: Low lung volumes. Stable patchy perihilar airspace opacity with mild volume loss. Mild central pulmonary vascular congestion. PLEURA: No pleural effusion or pneumothorax. HEART AND MEDIASTINUM: The cardiomediastinal silhouette is unremarkable.. BONES AND SOFT TISSUES: No acute osseous lesion. Soft tissues are unremarkable. UPPER ABDOMEN: No free air under the diaphragm. IMPRESSION: Interval retraction of the endotracheal tube with tip now overlying the mid trachea, 4.9 cm above the gabino. Stable bilateral hilar consolidations. Signed by: Dr. Nguyen Knight M.D. on 11/24/2019 8:51 AM
[2019-11-24] MEDS ORDERED: MIDAZOLAM HCL 2 MG/2 ML VIAL IV ONE (09:02)
[2019-11-24 09:49] LABS: ABG HCO3 20 mmol/L (22-26); ABG PCO2 38 mmHg (35-45); ABG PH 7.33 (7.35-7.45); ABG PO2 85 mmHg (80-105)
--- NOTE | 2019-11-24 09:52 | Progress Note ---
DATE: 11/24/2019 SUBJECTIVE: Unfortunately, Mr. Hussein had second syncopal episode yesterday while he was getting his physical therapy and walking. He complained initially of feeling dizzy. He was set in a chair and then he passed out, become bradycardic and passed out. He was intubated again. This morning, he is awake and alert. He did not suffer any neurologic deficit nor any seizure activity noted. He was taken to cardiac cath yesterday, which was clean. He had CT scan of the brain, which was unremarkable and today, we are waiting for Neurology evaluation. Still no clear cause of his bradycardic episodes that have noted now 3 times during this hospitalization, the first time of course during his upper endoscopy. He is afebrile, hemodynamically stable. LABORATORY DATA: His recent lab tests show BUN 31, creatinine 1.5, sodium 141, potassium 3.2, and calcium 7.3. Albumin 1.9 and total protein is 5. The patient will have a chronic liver disease. Liver function are still at his baseline. Magnesium 2 and phosphorus 3.4. TSH are normal. MEDICATIONS: Still maintained medications are Protonix, lactulose, Xifaxan, and Zosyn. ASSESSMENT AND PLAN: From GI standpoint, he is stable. I have nothing to add to his care. I am not really quite sure of the cause of those syncopal episodes. We are awaiting on Neurology evaluation. Also, he is due for an MRI of his brain today. Jackeline Ma MD RD/MODL /[id number]
[2019-11-24] MEDS ORDERED: GADOBENATE DIMEGLUMINE 1 ML IV ONE (10:10)
--- NOTE | 2019-11-24 13:38 | Progress Note ---
DATE: 11/24/2019 SUBJECTIVE: The patient being became unresponsive yesterday and required re-intubation. He is now on a mechanical ventilator. He is awaiting a transport to [facility]. He is also awaiting Neurology evaluation. He had a cardiac cath yesterday that showed no critical lesions and patent arteries. PHYSICAL EXAMINATION: VITAL SIGNS: The patient is on a PRVC mode of ventilation at a rate of 16. The tidal volume is set at 500. HEENT: Shows no facial swelling or erythema. There is an oral endotracheal tube. CARDIAC: Reveals regular rate and rhythm with normal S1 and S2. LUNGS: Auscultation of lungs reveals rhonchorous breath sounds bilaterally. There is no wheezing. ABDOMEN: Soft and nontender. There is no rebound or guarding. EXTREMITIES: Shows no leg edema or calf tenderness. There is no cyanosis or clubbing. SKIN: Shows no rashes. NEUROLOGICAL: Shows the patient to be sedated. LABORATORY DATA: BUN to creatinine ratio is 31 to 1.55 and the carbon dioxide is 19 with a chloride of 115. Albumin is 1.9. White blood cell count is 3.4 and the hemoglobin is 11.3. The platelet count is 46. Blood gases; 7.33, 38, 85, and 20. IMPRESSION: 1. Recurrent episodes of syncope and unresponsiveness. 2. Acute respiratory failure. 3. Cirrhosis. 4. Thrombocytopenia. 5. Chronic renal insufficiency, stage 3. PLAN: 1. The patient is going to [facility] later today. 2. Continue mechanical ventilation for now. 3. Consider Electrophysiology evaluation. 4. Continue to monitor blood sugars. 5. Case discussed with Respiratory, nursing, Gastroenterology, Cardiology, Internal Medicine, and family. Greater than 35 minutes in direct critical care time. Aris Briceno MD [facility]/MODL /[id number]
[2019-11-24] MEDS: INSULIN LISPRO 100 UNIT/1 ML 3ML VIAL SQ SCH ×3 (14:58→23:47)
--- NOTE | 2019-11-24 15:58 | Progress Note ---
DATE: 11/24/2019 Nephrology Progress Note SUBJECTIVE: The patient had a syncopal episode yesterday on the medical floor, became unresponsive, had to be intubated immediately. He was sent to the ICU. He is currently intubated on sedation. Etiology of his syncopal episode unknown. He was also found to be hypotensive when the syncopal episode occurred. From a Renal standpoint, his urine output noted to be 1250. No other issues at this time. PHYSICAL EXAMINATION: VITAL SIGNS: Temperature is 98.8, pulse 76, respiratory rate is 17, blood pressure 150/72, and pulse ox is 100%. He is on a mechanical ventilator. GENERAL: He is intubated and sedated. PULMONARY: Intubated and sedated. CARDIOVASCULAR: Positive S1 and S2. No murmurs, rubs, or gallops appreciated. ABDOMEN: Soft, nondistended, and nontender to palpation. Bowel sounds present. MUSCULOSKELETAL: Intubated and sedated. NEUROLOGIC: Intubated and sedated. SKIN: Intact. Warm to touch. Good cap refill. EXTREMITIES: No edema. Good range of motion throughout. LABORATORY DATA: Show white count 3.9, hemoglobin 11, hematocrit 34, and platelets of 46. Chemistry; sodium 141, potassium 3.7, chloride 115, bicarb 19, anion gap of 10, BUN is 31, creatinine is 1.55, glucose is 166, calcium is 7.3, phosphorus 3.4, and magnesium 2. Total bilirubin is 1.2, AST 46, and ALT 25. MICROBIOLOGY: None. IMAGING STUDIES: Abdominal x-ray shows the NG tube in the gastric stomach. CT brain negative. Repeat chest x-ray, endotracheal tube with the tip now overlying the mid trachea 4.9 cm above the gabino. Stable bilateral hilar consolidation. IMPRESSION: 1. Acute kidney injury with underlying chronic kidney disease, stage 3 secondary to hypotension, recent cardiac arrest, now re-intubated. 2. Acute respiratory failure, now intubated and sedated. 3. Syncopal episode reoccurrence. 4. Type 2 diabetes, insulin-dependent. 5. Metabolic acidosis. 6. Mild hyperkalemia-resolved. PLAN: At this time from a Renal standpoint, his renal function is good. His electrolytes are stable. Repeat labs in the morning. Monitor good strict in's and out's and urine output. Otherwise, we will continue to follow with primary team. Etiology of his syncopal episode unknown. Neurology and Cardiology have been notified. MD CELIO Blackman/TREV /[id number]
[2019-11-24 16:03] LABS: CREATINE KINASE MB 9.7 ng/mL (0-5.0)
--- NOTE | 2019-11-24 17:56 | Diagnostic Imaging Report ---
MRI BRAIN WOW HISTORY: Apneic episodes COMPARISON: Head CT 11/23/2019 TECHNIQUE: Multiplanar, multisequence MRI of the brain (including diffusion-weighted imaging) was performed before and after the administration of intravenous, gadolinium based contrast. 20 mL of MultiHance were administered. Motion and noise artifacts obscure some details. DISCUSSION: Scalp/bone marrow: Unremarkable. Brain sulci: Prominent. Ventricles: Compensatory dilatation. Extra-axial spaces: No masses or fluid collections. Parenchyma: Scattered T2/FLAIR hyperintense foci throughout the supratentorial white matter are likely chronic microvascular ischemic changes. Otherwise, no mass, hemorrhage, or acute vascular insults. Vessels: Normal flow voids in major arteries and veins. Sellar/Suprasellar region: No abnormalities. Craniocervical junction: No abnormalities. Incidental findings: Bilateral ocular lens replacement. Nasal and oral tubes are partially imaged. Layering fluid is seen throughout the upper aerodigestive tract. IMPRESSION: 1. No acute intracranial abnormalities. 2. Mild supratentorial chronic microvascular ischemic change. 3. Mild generalized cerebral volume loss. Signed by: Dr. Musa Champion M.D. on 11/24/2019 5:52 PM
--- NOTE | 2019-11-24 19:24 | Consultation ---
DATE OF CONSULTATION: 11/24/2019 Neurology Consultation HISTORY OF PRESENT ILLNESS: I am seeing him for sudden onset collapse x2, etiology is not clear. Mr. Jean Paul Hussein is a 58-year-old gentleman, comes in after brief cardiopulmonary arrest after endoscopy. He has been doing well. He is working up with physical therapy then collapsed again. He was now intubated and sedated for respiratory support. 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 He has received transiently and then was now intubated for airway protection. His is at the bedside. She reports that he at home falls asleep easily at night, but does not find to be collapsed. There is no history of seizures. At this time, cannot give his review of systems, past medical, or social history. PHYSICAL EXAMINATION: VITAL SIGNS: He is on mechanical ventilatory support. He is afebrile at 99.1. His pulse is 68 and his blood pressure is 150/65. He is arousable with stimulation. GENERAL: Extraocular muscles are intact. Doll's eyes. Pupils are reactive and symmetric. There is no nuchal rigidity. There is no increased muscle tone in the neck or in the arms or the legs. Reflexes are diminished throughout globally. ABDOMEN: Soft and is not distended or tender. No guarding. NEURO: He does withdraw from noxious stimulation, but not very well . ASSESSMENT AND PLAN: I am seeing Mr. Jean Paul Hussein for sudden collapse, clearly etiology not entirely clear. I am going to get an EEG. It is possible that the patient has developed cataplexy or narcolepsy, which sleep study or an EEG might even show if he is awake enough for the EEG. However, given the his past medical history and previous labs, apparently he does get respiratory failure, it may not just be cataplexy as this patient is to tend to breathe fairly well on his own, so we will expand the neurological workup as we go forward and check myotonia and epilepsy workup as well. ANA LEDESMA MD RR/MODL /[id number]
[2019-11-24] MEDS: SODIUM CHLORIDE 0.9% 1000ML 1,000 ML IV SCH (20:11)
[2019-11-24] MEDS: INSULIN GLARGINE 100 UNITS/ML VIAL SQ SCH (21:15)
[2019-11-25] VITALS (27 sets, daily range): BP systolic 88–171; BP diastolic 58–102
[2019-11-25] MEDS ORDERED: PROPOFOL IV EMULSION 50 ML IV ONE (05:13)
[2019-11-25 05:47] LABS: BASOPHILS % 0.6 % (0.0-1.0); EOSINOPHILS # (AUTO) 0.2 (0.0-0.4); EOSINOPHILS % 6.3 % (0.0-6.0); HEMATOCRIT 33.6 % (38.2-49.6); LYMPHOCYTES # (AUTO) 0.9 (1.0-3.2); LYMPHOCYTES % 24.5 % (18.0-39.1); MEAN CORPUSCULAR HEMOGLOBIN 32.5 pg (28-32); MEAN CORPUSCULAR HGB CONC 32.7 g/dL (31-35); MEAN CORPUSCULAR VOLUME 99.4 fL (81-99); MONOCYTES # (AUTO) 0.4 (0.2-0.8); MONOCYTES % 10.2 % (4.4-11.3); NEUTROPHILS # (AUTO) 2.1 (2.1-6.9); NEUTROPHILS % 58.1 % (38.7-80.0); RED BLOOD COUNT 3.38 x10e6/uL (4.3-5.7); RED CELL DISTRIBUTION WIDTH 14.4 % (11.7-14.4)
[2019-11-25 05:54] LABS: PLATELET COUNT 35 x10e3/uL (140-360)
[2019-11-25] MEDS: PIPERACILLIN/TAZO 2.25 GM 50 ML IV SCH ×3 (05:55→18:38)
[2019-11-25] MEDS: LACTULOSE SYRUP 20 GM/30 ML UDC PO SCH ×3 (05:55→18:40)
[2019-11-25 06:18] LABS: ALBUMIN 1.9 g/dL (3.5-5.0); ALBUMIN/GLOBULIN RATIO 0.6 (0.8-2.0); ANION GAP 10.8 mmol/L (8-16); CALCIUM 7.8 mg/dL (8.4-10.2); CREATININE, SERUM 1.53 mg/dL (0.72-1.25); POTASSIUM 3.8 mmol/L (3.5-5.1)
[2019-11-25] MEDS: INSULIN LISPRO 100 UNIT/1 ML 3ML VIAL SQ SCH ×3 (06:30→18:39)
[2019-11-25] MEDS: PROPOFOL IV EMULSION 10MG/ML 100 ML IV PRN (06:34)
--- NOTE | 2019-11-25 06:43 | Diagnostic Imaging Report ---
EXAMINATION: CHEST SINGLE (PORTABLE) INDICATION: ^resp failure ^[id number] ^[id number] COMPARISON: 11/24/2019 FINDINGS: AP view TUBES and LINES: Stable endotracheal and enteric tubes. LUNGS: Limited by low lung volumes and body habitus. Pulmonary vascular congestion. PLEURA: Small bilateral pleural effusions, left greater than right. No pneumothorax. HEART AND MEDIASTINUM: The cardiomediastinal silhouette is enlarged. BONES AND SOFT TISSUES: No acute osseous lesion. Soft tissues are unremarkable. UPPER ABDOMEN: No free air under the diaphragm. IMPRESSION: Enlarged cardiomediastinal silhouette and pulmonary vascular congestion. Small bilateral pleural effusions, left greater than right, slightly increased from prior exam. Underlying pneumonia cannot be excluded. Signed by: Dr. Ankur Doan MD on 11/25/2019 6:40 AM
--- NOTE | 2019-11-25 08:45 | NUR ---
patient tolerating cpap. abg results pending. pt still sedated but waking up to stimulus and following commands.
--- NOTE | 2019-11-25 09:01 | NUR ---
extubated at 0856 to 4lNC o2. tolerating extubation well thus far
--- NOTE | 2019-11-25 09:02 | NUR ---
awake and responsive nod head 96.3 70 117/74 GENERAL: Extraocular muscles are intact. Doll's eyes. Pupils are reactive and symmetric. There is no nuchal rigidity. There is no increased muscle tone in the neck or in the arms or the legs. Reflexes are diminished throughout globally. ABDOMEN: Soft and is not distended or tender. No guarding. NEURO: awake and responsive eomi moves bue and ble to commands and spontanously relfexe are diminished ASSESSMENT AND PLAN: I am seeing Mr. Jean Paul Hussein for sudden collapse, clearly etiology not entirely clear. I am going to get an EEG after discussing with medical team cataplexy is less likely however seiuzre disorder remains and an eeg remains appropraite no evidence of focallity, cardiopulm etiology is also high on differential
--- NOTE | 2019-11-25 09:47 | Progress Note ---
DATE: 11/25/2019 SUBJECTIVE: The patient went for MRI of the brain yesterday. There were no acute abnormalities. He remains on mechanical ventilation with only 40% FiO2. He was placed on a CPAP of 5 and a pressure support of 8. He is breathing 20 to 22 times a minute with tidal volumes of 400 to 450 mL. When the sedation is held, he wakes up and follows commands. PHYSICAL EXAMINATION: VITAL SIGNS: The patient is afebrile, blood pressure is 110/67, saturation is 96%, and the pulse is 74. HEENT: Shows no facial swelling or erythema. CARDIAC: Reveals regular rate and rhythm with normal S1, S2. LUNGS: Auscultation of lungs reveals decreased breath sounds at the bases. There is no wheezing. ABDOMEN: Soft and nontender. There is no rebound or guarding. EXTREMITIES: Shows no leg edema or calf tenderness. There is no cyanosis or clubbing. SKIN: Shows no rashes. NEUROLOGIC: The patient to be awake when the sedation is held and following commands. LABORATORY DATA: Platelet count is 35 and hemoglobin is 11. The white blood cell count is 3.63. The BUN to creatinine ratio is 30 to 1.53 and the CO2 is 18. The glucose is 200 and the total bilirubin is 1.8. Albumin is 1.9. RADIOGRAPHIC DATA: Chest x-ray shows top-normal heart with some vascular congestion and small bilateral pleural effusions. IMPRESSION: 1. Acute respiratory failure that has resolved. 2. Recurrent syncope with prolonged unresponsiveness. 3. Cirrhosis and portal hypertension. 4. Thrombocytopenia. 5. Chronic renal insufficiency, stage III. PLAN: 1. Continue spontaneous breathing trial and repeat ABG. Assuming the patient does well, we will proceed with extubation. 2. Continue to give insulin and monitor blood sugars. 3. Continue Protonix. 4. Continue lactulose and rifaximin. 5. Propranolol has been held because of possible bradycardia. 6. Electrophysiology is scheduled to see the patient tomorrow. 7. Continue current antibiotics. 8. Case discussed with Respiratory, nursing staff, Cardiology, Internal Medicine, and Family. Greater than 35 minutes in direct critical care time. Aris Briceno MD [facility]/TREV /[id number]
[2019-11-25] MEDS: PANTOPRAZOLE 40 MG 10ML VIAL IV SCH ×2 (10:23→18:40)
[2019-11-25] MEDS: RIFAXIMIN 550 MG TABLET PO SCH ×2 (10:23→18:40)
[2019-11-25] MEDS: LIDOCAINE 4% PATCH TP SCH (10:30)
[2019-11-25] MEDS ORDERED: HYDROXYZINE HCL 25 MG TAB ONE (12:14)
[2019-11-25] MEDS ORDERED: TRAMADOL HCL 50 MG TAB PO PRN (14:00)
[2019-11-25] MEDS ORDERED: FUROSEMIDE INJ 10 MG/ML 4 ML VIAL IV ONE (14:30)
[2019-11-25] MEDS ORDERED: ALBUTEROL/IPRATROPIUM 3 ML NEB NEB PRN (14:30)
[2019-11-25] MEDS ORDERED: SODIUM CHLORIDE 0.9% 1000ML 1,000 ML ONE (15:04)
[2019-11-25 15:34] LABS: ABG HCO3 22 mmol/L (22-26); ABG PCO2 36 mmHg (35-45); ABG PH 7.39 (7.35-7.45); ABG PO2 80 mmHg (80-105)
[2019-11-25 16:21] LABS: CREATINE KINASE MB 9.7 ng/mL (0-5.0)
--- NOTE | 2019-11-25 16:34 | Progress Note ---
DATE: 11/25/2019 Nephrology Progress Note SUBJECTIVE: The patient is extubated. He had wheezing on examination. No overnight events. He was alert. He was a bit confused on exam according to the nursing staff. PHYSICAL EXAMINATION: VITAL SIGNS: Temperature is 98.9, pulse 58, respiratory rate 19, blood pressure 140/90, pulse ox 95% on 4 L nasal cannula, still has an NG tube. GENERAL: No acute distress. Alert and oriented x2 cooperative on examination. PULMONARY: Clear to auscultation bilaterally. No wheezing, rales, or rhonchi. No crackles appreciated. CARDIOVASCULAR: Positive S1, S2. No murmurs, rubs, or gallops. ABDOMEN: Soft, nondistended, nontender to palpation. Bowel sounds present. MUSCULOSKELETAL: Strength is 5/5 throughout. No evidence of any muscle deficits on examination. No weakness appreciated. SKIN: Intact. Warm to touch. Good cap refill. PSYCHIATRIC: Normal affect and mood. EXTREMITIES: No edema. Good range of motion throughout. LABORATORY DATA: Labs show white count 3.6, hemoglobin 11, hematocrit 33.6, and platelets of 35. Chemistry; sodium 141, potassium 3.8, chloride 116, bicarb 18, anion gap of 10, BUN is 30, creatinine 1.53, glucose is 200, calcium 7.8, total bilirubin is 1.8, AST 47, ALT 25, and alkaline phosphatase 93. IMAGING STUDIES: Chest x-ray performed this morning, has enlarged cardiac mediastinal silhouette and pulmonary vascular congestion. There is a small bilateral pleural effusion, left greater than right. MRI of the brain performed yesterday shows no acute intracranial abnormality. IMPRESSION: 1. Acute kidney injury with underlying chronic kidney disease stage 3 secondary to hypotension, now status post extubation. 2. Acute respiratory failure, now extubated. 3. Syncopal episode. 4. Type 2 diabetes, insulin dependent. 5. Metabolic acidosis. 6. Mild hyperkalemia-resolved. PLAN: At this time, his electrolytes are stable. I did add Lasix 40 mg IV once as well as DuoNebs based on the chest x-ray performed this morning. Free water flushes 300 mL q.6 hours as needed, which has been ordered. Neurology has been consulted as well as Cardiology. Jiries S Dahu, MD JSD/ELLEL /[id number]
--- NOTE | 2019-11-25 18:00 | NUR ---
dr. caruso order for free water flushes Q6hrs 300ml
--- NOTE | 2019-11-25 19:10 | NUR ---
nsg report given to shift leader RN
[2019-11-25] MEDS: INSULIN GLARGINE 100 UNITS/ML VIAL SQ SCH (21:00)
--- NOTE | 2019-11-25 21:54 | Progress Note ---
DATE: 11/25/2019 Mr. Hussein was extubated this morning, doing well, had a bowel movement yesterday, afebrile, hemodynamically stable. His beta martina was stopped. He had EEG test this morning, which results still pending. No signs of arrhythmias so far or bradycardia. We will continue to monitor. Jackeline Ma MD RD/MODL /[id number]
[2019-11-26] VITALS (20 sets, daily range): BP systolic 131–170; BP diastolic 71–121
[2019-11-26 05:39] LABS: EOSINOPHILS # (AUTO) 0.2 (0.0-0.4); EOSINOPHILS % 5.9 % (0.0-6.0); HEMATOCRIT 34.7 % (38.2-49.6); HEMOGLOBIN 11.6 g/dL (14.0-18.0); LYMPHOCYTES # (AUTO) 0.8 (1.0-3.2); LYMPHOCYTES % 19.7 % (18.0-39.1); MEAN CORPUSCULAR HEMOGLOBIN 32.9 pg (28-32); MEAN CORPUSCULAR HGB CONC 33.4 g/dL (31-35); MEAN CORPUSCULAR VOLUME 98.3 fL (81-99); MONOCYTES # (AUTO) 0.5 (0.2-0.8); MONOCYTES % 12.3 % (4.4-11.3); NEUTROPHILS # (AUTO) 2.5 (2.1-6.9); NEUTROPHILS % 60.9 % (38.7-80.0); RED BLOOD COUNT 3.53 x10e6/uL (4.3-5.7); RED CELL DISTRIBUTION WIDTH 14.1 % (11.7-14.4)
[2019-11-26] MEDS: PIPERACILLIN/TAZO 2.25 GM 50 ML IV SCH ×4 (05:52→17:49)
[2019-11-26] MEDS: LACTULOSE SYRUP 20 GM/30 ML UDC PO SCH ×5 (05:52→19:53)
[2019-11-26] MEDS: INSULIN LISPRO 100 UNIT/1 ML 3ML VIAL SQ SCH ×4 (06:03→17:50)
[2019-11-26 06:11] LABS: ALBUMIN/GLOBULIN RATIO 0.6 (0.8-2.0); ANION GAP 12.5 mmol/L (8-16); CALCIUM 8.2 mg/dL (8.4-10.2); CREATININE, SERUM 1.42 mg/dL (0.72-1.25); MAGNESIUM 1.8 MG/DL (1.3-2.1); POTASSIUM 3.5 mmol/L (3.5-5.1)
[2019-11-26 06:49] LABS: PLATELET COUNT 38 x10e3/uL (140-360)
[2019-11-26] MEDS: PANTOPRAZOLE 40 MG 10ML VIAL IV SCH ×3 (08:25→17:01)
[2019-11-26 09:17] LABS: PLATELET ESTIMATE MARKEDLY DECREASED; PLATELET MORPHOLOGY COMMENT NORMAL; RBC MORPHOLOGY COMMENT NORMAL
[2019-11-26] MEDS: RIFAXIMIN 550 MG TABLET PO SCH ×2 (09:18→17:01)
[2019-11-26] MEDS: LIDOCAINE 4% PATCH TP SCH (09:18)
--- NOTE | 2019-11-26 09:35 | NUR ---
awake and responsive verbalizes clearl y 96.3 70 117/74 GENERAL: Extraocular muscles are intact. Doll's eyes. Pupils are reactive and symmetric. There is no nuchal rigidity. There is no increased muscle tone in the neck or in the arms or the legs. Reflexes are diminished throughout globally. ABDOMEN: Soft and is not distended or tender. No guarding. NEURO: awake and responsive eomi moves all 4 - 5/5 sensory grossly intact no ataxia ASSESSMENT AND PLAN: I am seeing Mr. Jean Paul Hussein for sudden collapse, clearly etiology not entirely clear. after discussing with medical team cataplexy is less likely however seiuzre disorder remains and an eeg remains appropraite no evidence of focallity, cardiopulm etiology is also high on differential eeg normal no evidence of seizure or stroke
--- NOTE | 2019-11-26 12:06 | Electroencephalogram ---
DATE OF STUDY: 11/26/2019 REQUESTING PHYSICIAN: PROCEDURE: 30 minutes EEG. INDICATIONS FOR THE PROCEDURE: EEG is being done to evaluate for delirium and seizures and collapse. EEG DATA: Posterior head region of 19 hertz closure. Beta frequencies 22 hertz . Overall, this 10-20 international electrode placement EEG when in the bipolar montage is normal without any evidence of epilepsy or history of seizure activity. IMPRESSION: This EEG is within normal limits. ANA LEDESMA MD RR/MODDalia /[id number] MTDD
--- NOTE | 2019-11-26 15:34 | Consultation ---
DATE OF CONSULTATION: 11/26/2019 EP Consultation REASON FOR CONSULTATION: Bradyarrhythmia/cardiac arrest. HISTORY OF PRESENT ILLNESS: Mr. Hussein is a 58-year-old man with a history of cirrhosis, hypertension, who presents to the hospital with GI bleed. The patient was receiving an endoscopy and suddenly became bradycardic and required resuscitation. He apparently was pulseless as well and was intubated during this procedure for airway protection. The patient was in the ICU and recovered well and was extubated the following day. He was in the IMU and got up to walk, suddenly the patient stated he felt lightheaded and when he was sat down, it was noted that he had sinus bradycardia and altered mental status. A Code Blue was subsequently activated. It was noted the patient did not become pulseless. However, he was reintubated for airway protection. On my consultation, patient is still in the ICU and has been extubated. He does not report a history of having any bradyarrhythmias, any symptoms of lightheadedness, dizziness, or syncopal episodes prior to this presentation. He also denies having any cardiac history. REVIEW OF SYSTEMS: He currently denies any fevers, chills, lightheadedness, dizziness, discharge out of eyes, nose, mouth, swollen lymph nodes in neck or groin, chest pain, palpitations, shortness of breath, coughing, abdominal pain, nausea, vomiting, dysuria, hematuria, swelling in the joints, joint pain, numbness, tingling, weakness, skin rashes, ulcers, swollen legs or arms, depression or anxiety. PAST MEDICAL HISTORY: As noted above. PAST SURGICAL HISTORY: The patient had a recent coronary angiogram, which demonstrated nonobstructive coronary disease. SOCIAL HISTORY: He does not currently smoke any cigarettes, drink alcohol, or use any illicit drugs. FAMILY HISTORY: No significant family history of early cardiac or sudden arrhythmias. MEDICATIONS: Please see MAR. ALLERGIES: PLEASE SEE MAR. PHYSICAL EXAMINATION: VITAL SIGNS: Temperature is afebrile. Heart rate currently sinus in the 90s and blood pressure 132/80, respiratory rate is 20. GENERAL: No acute distress. Alert, awake, oriented x3. HEENT: Normocephalic, atraumatic. Pupils are equal, reactive to light. LYMPH: No supraclavicular, submandibular lymphadenopathy appreciated. CVS: S1, S2. Regular rate and rhythm. RESPIRATORY: Coarse breath entry. No wheezing. GI. ABDOMEN: Soft, nontender. : No bladder fullness. No CVA tenderness. MUSCULOSKELETAL: No effusions or erythema noted in the knees or elbows bilaterally. NEURO: Moves all extremities spontaneously. No focal deficits. EXTREMITIES: No edema in lower extremities or upper extremities bilaterally. SKIN: No bruising or ulcers noted. PSYCH: Mood is normal. Answers questions appropriately. LABORATORY DATA: Creatinine is 1.4, hemoglobin is 11.6, platelet is 38. ASSESSMENT AND PLAN: Mr. Hussein is a 58-year-old male with history as noted above, who presented to hospital and received endoscopy with subsequent cardiac arrest. The cardiac arrest will presumably be from pulseless electrical activity arrest. The patient was noted to have a rhythm. However, he just lost a pulse and was intubated for airway protection. The possible cause for this cardiac arrest was due to medication. However, after he was extubated and off the unit in the IMU floor while he was walking, he did develop another episode of bradyarrhythmia, which caused him to have altered mental status. Though the patient did not have any pulseless activity he was noted to be altered and with unresponsiveness for approximately 30 seconds for which he did receive about 30 seconds of CPR and did not require any CPR afterwards. At this point, it is possible the patient may have some cardioinhibitory effects possibly from increased vagal tone. However, we cannot rule out the possibility from having conduction abnormalities with prolonged sinus recovery time as well as nonobstructive coronary disease as well. I have discussed this with the patient as well as the Cardiology service and may benefit the patient to receive electrophysiology study to assess the conduction properties. In order to do this, we would need to transfer the patient to a higher facility such as [facility] to proceed with electrophysiology study. If there are any overt abnormalities, the patient may need a pacemaker implantation. The alternative would be an implantable loop recorder as well. Discussed with the patient. He is agreeable to transfer as well. We will facilitate transfer. EP will continue to follow. Thank you very much for allowing me to participate in Mr. Hussein care. Please feel to call if questions. DO ZOE VILLASEÑOR/MODL /[id number] RICHARD
--- NOTE | 2019-11-26 15:41 | NUR ---
Dr Ma has visited. He orders to clamp the ng tube 3-4 hours. If no nausea or vomiting, then remove the ng tube, and can feed the patient a GI soft diet. Dr Ma notifed pt has been given insulin. Orders put in with anticipation of no issues occuring, and will notify receiving nurse.
--- NOTE | 2019-11-26 15:44 | Progress Note ---
DATE: 11/26/2019 SUBJECTIVE: The patient was extubated yesterday. He was evaluated by Electrophysiology today. PHYSICAL EXAMINATION: VITAL SIGNS: The blood pressure is 163/89, saturation is 95% on 3 L, and the pulse is 92. Temperature is 99.8. The respiratory rate is 18. HEENT: Shows no facial swelling or erythema. CARDIAC: Reveals regular rate and rhythm with normal S1 and S2. LUNGS: Auscultation of the lungs reveals clear breath sounds bilaterally. ABDOMEN: Soft and nontender. There is no rebound or guarding. LABORATORY DATA: White blood cell count is 4 and the hemoglobin is 11.6. The platelet count is 38. The BUN to creatinine ratio is 21 to 1.42. The glucose is 172. Carbon dioxide is 21 and the albumin is 2. RADIOGRAPHIC DATA: Chest x-ray still shows some cardiomegaly and some vascular congestion. IMPRESSION: 1. Recurrent syncope with prolonged unresponsiveness. 2. Acute respiratory failure that has resolved. 3. Cirrhosis and portal hypertension. 4. Thrombocytopenia. 5. Chronic renal insufficiency, stage 3. PLAN: 1. The patient to be transferred to [facility] for Electrophysiology study. 2. Continue to monitor blood sugars. 3. Continue Protonix. 4. Continue lactulose and rifaximin. 5. Continue Rocephin for possible aspiration pneumonitis. Aris Briceno MD [facility]/MODL /[id number]
[2019-11-26] MEDS ORDERED: DEXTROSE 50%-WA50 M1 IV (15:59)
[2019-11-26] MEDS ORDERED: Chloraseptic MM (15:59)
[2019-11-26] MEDS ORDERED: LACTULOSE20 GM/30 M PO (15:59)
[2019-11-26] MEDS ORDERED: Albuterol/Ipratropium Nebulize NEB (15:59)
[2019-11-26] MEDS ORDERED: ULTRAM 50MG50 MG PO (15:59)
[2019-11-26] MEDS ORDERED: Insulin Lispro SQ (15:59)
[2019-11-26] MEDS ORDERED: Lidocaine Patch TP (15:59)
[2019-11-26] MEDS ORDERED: PROTONIX IV40 MG IV (15:59)
[2019-11-26] MEDS ORDERED: ZOSYN 2.252.25 GM/51 IV (15:59)
[2019-11-26] MEDS ORDERED: Insulin Glargine SQ (15:59)
--- NOTE | 2019-11-26 16:37 | NUR ---
Nutrition Screen Note RD Recommendation for Physician: -Recommend low sodium/ADA diet -If PO intake is <50% of meals, offer Glucerna nutrition supplement Plan of Care: RD following, monitoring for tolerance and adequacy Nutrition reason for involvement: length of stay Primary Diagnose(s): alcoholic cirrhosis of liver without ascites PMH: liver cirrhosis, type 2 diabetes Ht: 66 inches Wt: 231 lbs BMI: 37.3 kg/m2 IBW: [address] Assessment: (11/26/19) Chart reviewed. Labs and meds reviewed. Pt is a 58 year old male admitted with alcoholic cirrhosis of liver without ascites. Pt was intubated on 11/23 and was extubated yesterday. Pt was started on a GI soft diet today. It is recorded that pt was consuming 50-100% of meals prior to intubation from 11/21-11/22. Per weight history in chart, pt weighed 233 lbs in December 2018 and currently weighs 231 lbs; therefore, significant weight loss is not evident within the past year. MD note indicates pt is planned to be transferred to another medical facility for electrophysiology study. Will continue to monitor. Current Diet: GI soft Malnutrition Evaluation (11/26/19) The patient does not meet criteria for a specified degree of malnutrition at this time. Will re-evaluate at follow-up as appropriate. Diet Education Needs Assessment: RD is available for diet education as needed Nutrition Care Level: low Signed: Lara Lowry, RD, LD
--- NOTE | 2019-11-26 16:40 | Progress Note ---
DATE: 11/25/2019 CONSULTING PHYSICIANS: 1. Dr. Manzano with Neurology. 2. Dr. Aris Briceno with Pulmonology. 3. Dr. Bridger Briceno with Cardiology. 4. Dr. Alvin Bassett with Nephrology. 5. Dr. Tena Strong with electrophysiology. SUBJECTIVE: The patient is lying supine in bed. He is able to follow some simple commands when his sedation is held. He is on CPAP mode on mechanical ventilation with a FiO2 of 40%, breathing about 20 times per minute with a tidal volume of about 400-450. PHYSICAL EXAMINATION: VITAL SIGNS: Temperature 98.6, heart rate 81, blood pressure 133/83, respirations 19, and oxygen saturation 96%. GENERAL: Supine. LUNGS: Bibasilar diminished lung sounds without wheezing. He is on CPAP mode on the ventilator. FiO2 of 40%, CPAP 5, pressure support of 8. HEENT: EOMI. NECK: Supple. CARDIOVASCULAR: Regular rate and rhythm. No murmur. ABDOMEN: Bowel sounds positive. No guarding. EXTREMITIES: Without pitting edema. No clubbing, cyanosis, or marked swelling. No sign of DVT. INTEGUMENTARY: No rash. NEUROLOGICAL: GCS 9T, eye 3, verbal 3, motor 6. LABORATORY DATA: WBC 3.63, hemoglobin 11, hematocrit 33.6, and platelets 35. ABG; pH 7.39, pCO2 of 36, PO2 of 80, HC03 of 22, SaO2 of 96%, base excess of 3, and FiO2 of 40%. Sodium 141, potassium 3.8, chloride 116, CO2 of 18, anion gap 10.8, BUN 30, creatinine 1.53, estimated GFR 47, glucose 200, calcium 7.8, total bilirubin 1.8, AST 47, ALT 25, alkaline phosphatase 93, total protein 5.1, and albumin 1.9. Fingerstick blood glucose level 130. Creatine kinase 1581, CK-MB 9.7, troponin I 0.067. Chest x-ray showed enlarged cardiomediastinal silhouette and pulmonary vascular congestion. Small bilateral pleural effusions, left greater than right, slightly increase from prior chest x-ray exam. Underlying pneumonia cannot be excluded. IMPRESSION: 1. Recurrent syncope with prolonged unresponsiveness. Neurology following. MRI of the brain done 11/23 was negative. Electrophysiology is scheduled to see the patient tomorrow. EP study planned myotonia and epilepsy workup. 2. Acute respiratory failure, status post intubation 11/23, possible extubation today as per Pulmonary recs. Continue spontaneous breathing trial for now. 3. Liver cirrhosis and portal hypertension. Continue lactulose and rifaximin. Propranolol is being held because of possible bradycardia. GI following. 4. Acute kidney injury with chronic kidney disease stage 3. Creatinine 1.53 (1.55). Nephrology following. Metabolic acidosis noted with serum CO2 of 18 (19). 5. Uncontrolled type 2 diabetes mellitus with hyperglycemia. Hemoglobin A1c 7.5%. Continue sliding scale insulin and Lantus. 6. Thrombocytopenia due to liver cirrhosis, platelets 35 (46). Monitor platelet count. 7. Prophylaxis. Protonix. Time spent 35 minutes. Billing code 55560. Dictated by Newton Macias NP MD POLO SotomayorP/MODL /[id number]
--- NOTE | 2019-11-26 18:37 | NUR ---
Pt's son and are refusing transfer to [facility]. Calling Dr Roca service to notify.
--- NOTE | 2019-11-26 19:00 | NUR ---
Report received. Assumed care. Assessment done. See interventions. Newton Macias & Dr. Perez notified by day nurse that pt and family refusing to be transferred to [place]. They will discuss with each other re: transfer to [place].
[2019-11-26] MEDS ORDERED: HYDRALAZINE HCL 20 MG/ML VIAL IV PRN (19:15)
--- NOTE | 2019-11-26 19:45 | NUR ---
Per warehouse helper no transferring at this time. Will be reassessing at 2014. Advised patient about this.
[2019-11-26] MEDS: LABETALOL HCL 100 MG TAB PO SCH (19:52)
--- NOTE | 2019-11-26 20:40 | NUR ---
Report to Sameera BREEN on IMCU.
--- NOTE | 2019-11-26 20:45 | NUR ---
Transferred per bed to 198.
[2019-11-26] MEDS: INSULIN GLARGINE 100 UNITS/ML VIAL SQ SCH (21:00)
--- NOTE | 2019-11-26 21:31 | Progress Note ---
DATE: 11/26/2019 Nephrology Progress Note SUBJECTIVE: The patient is extubated since yesterday. He is doing very well. Swallow evaluation has been ordered. He is in the process of being transferred to [place] for EP study. PHYSICAL EXAMINATION: VITAL SIGNS: He had a T-max of 100.3. Current temperature when evaluated him, it was 99.8. Pulse was 89, respiratory rate is 21, blood pressure 133/80, and pulse ox 96% on nasal cannula 3 L. GENERAL: Not in acute distress. Alert and oriented x3. Cooperative on examination. HEENT: Head; normocephalic, atraumatic. Eyes; pupils are equal, round, and reactive to light bilaterally. Extraocular movements intact bilaterally. Throat; no evidence of erythema or exudates in the posterior pharynx. Has poor dentition. NECK: Supple. Good range of motion. PULMONARY: Clear to auscultation bilaterally. No wheezing, no rales, no rhonchi, no crackles appreciated. CARDIOVASCULAR: Positive S1 and S2. No murmurs, rubs, or gallops appreciated. ABDOMEN: Soft, nondistended, and nontender to palpation. Bowel sounds present. MUSCULOSKELETAL: Strength is 5/5 throughout. No evidence of any muscle deficits on examination. No weakness appreciated. NEUROLOGIC: Cranial nerves 2 through 12 grossly intact. No evidence of any neurological deficits on exam. SKIN: Intact. Warm to touch. Good cap refill. PSYCHIATRIC: Normal affect and mood. EXTREMITIES: No edema. Good range of motion throughout. LABORATORY DATA: White count 4, hemoglobin 11, hematocrit is 35, and platelets of 38. Chemistry; sodium 144, potassium 3.5, chloride 114, bicarb 21, anion gap of 12, BUN is 21, creatinine is 1.42, glucose is 167, and calcium 8.2. IMPRESSION: 1. Acute kidney injury with underlying chronic kidney disease, stage 3 secondary to hypotension, now improving. 2. Acute respiratory failure, extubated. 3. Syncopal episode of unknown etiology. 4. Type 2 diabetes, insulin-dependent. 5. Metabolic acidosis-resolved. 6. Mild hyperkalemia-resolved. PLAN: At this time, electrolytes are stable. Renal function is good. Good urine output. He is scheduled to be transferred to [facility] for an EP study. Continue with tube feeds. Monitor very closely. MD CELIO Blackman/TREV /[id number]
--- NOTE | 2019-11-26 22:41 | Discharge Summary ---
CONSULTING PHYSICIANS: 1. Lainey Manzano MD., with Neurology. 2. Rehan Roca MD., with Internal Medicine/hospitalist. 3. Aris Briceno MD., with Pulmonology/Critical Care Medicine. 4. Bridger Briceno MD., with Cardiology. 5. Alvin Bassett MD., with Nephrology. 6. Girish Montes MD., with Electrophysiology. Of note; Tena Strong DO, is the corporate planning manager saw the patient today. PRIMARY CARE PHYSICIAN: Reema Gordillo MD. PERTINENT HISTORY AND PHYSICAL FINDINGS: CHIEF COMPLAINT: Respiratory distress/cardiac arrest. HISTORY OF PRESENT ILLNESS: The patient is a 58-year-old male, admitted for becoming hypoxic and bradycardic during an EGD. The patient required atropine/epi and chest compressions/intubation. PAST MEDICAL HISTORY: Type 2 diabetes mellitus, cirrhosis, CKD-3. PAST SURGICAL HISTORY: Right TMA, left ankle surgery. FAMILY HISTORY: Diabetes mellitus in the daughter. SOCIAL HISTORY: Noncontributory. ALLERGIES: NO KNOWN ALLERGIES. ADMITTING DIAGNOSES: 1. Cardiopulmonary arrest. 2. Type 2 diabetes mellitus. 3. Cirrhosis. 4. Chronic kidney disease-3. 5. Obesity with BMI of 37.5. DISCHARGE DIAGNOSES: 1. Recurrent syncope with prolonged unresponsiveness. 2. Status post acute respiratory failure with intubation/extubation more than once; most recent intubation on 11/23 with extubation on 11/24. 3. Cirrhosis and portal hypertension with thrombocytopenia, elevated T bilirubin. 4. Acute kidney injury with chronic kidney disease-3 and metabolic acidosis. 5. Uncontrolled type 2 diabetes mellitus with hyperglycemia. 6. Mild acute hypokalemia. On admission, BUN 30, creatinine 1.6, estimated GFR 45, serum glucose 268, alkaline phosphatase 208, total bilirubin 0.9. WBC 3.2, hemoglobin 12.2, hematocrit 35.2, platelets 38. On 11/15, coronavirus by PCR was not detected. Chest x-ray done on 11/19 showed ET tube in adequate position, patchy bibasilar opacities may represent atelectasis or pneumonia. Renal ultrasound was done on 11/20, showed no hydronephrosis or renal calculi. Grady catheter and decompressed bladder. A 12-lead EKG done on 11/15 showed normal sinus rhythm with a heart rate of 83. CT of the brain was done on 11/22, which showed no acute abnormalities, chronic findings of the supratentorial white matter small vessel ischemic changes. Generalized volume loss. Brain MRI was done on 11/23, which showed no acute intracranial abnormalities. Mild supratentorial chronic microvascular ischemic change, mild generalized central cerebral volume loss. Most recent chest x-ray on 11/24 showed enlarged cardiomediastinal silhouette and pulmonary vascular congestion, small bilateral pleural effusions, left greater than right, slightly increased from prior exam. Underlying pneumonia could not be excluded. The patient has had upper endoscopies in the past with only mild varices. He has had paracentesis in the past. He went for repeat upper endoscopy on 11/19 to evaluate its varices. Apparently tolerated the procedure well and did not require any sclerosis or treatment, however, at the end of the procedure, he became apneic and pulseless. The staff gave epinephrine and atropine. He did CPR very briefly and reintubated the patient. He regained his pulse and was sent to the recovery room on a mechanical ventilator. He underwent a left heart catheterization, which was negative. On 11/21, he was working with Physical therapy on the stairs and he had a near syncope event. Neurology was consulted as well as Cardiology. At about 1425 on 11/22, the patient got out of bed with physical therapy and was standing. Dr. Aris Briceno witnessed the following event. The patient stated I feel dizzy, after that he sat in a chair and his eyes rolled back in his head. He became unresponsive and a rapid response was called. His blood pressure was low. There was no loss of pulse. However, the patient required intubation as he was unresponsive. He underwent heart catheterization on 11/22. The patient was seen and evaluated by neurologist, Dr. Manzano on 11/23 and EEG was ordered. It was completed on 11/25 and the EEG was within normal limits per the neurologist, and it is possible that the patient has developed cataplexy or narcolepsy, which sleep study or an EEG might even show if he is awake and not for the EEG, however, he does get respiratory failure. Thus, the neurological workup plan was to check myotonia and epilepsy workup. Per consultation note by corporate planning manager, Dr. Tena Strong, the cardiac arrest was presumably from pulseless electrical activity arrest. The patient was noted to have a rhythm at that time. However, he just lost a pulse and was intubated for airway protection. Possible cause for cardiac arrest due to medication. The patient may benefit from to receive electrophysiology study to assess the conduction properties. In order do this as [facility] does not have an electrophysiology lab, the patient will need to be transferred to a higher facility, such as [facility], formally known as [facility] in order to proceed with electrophysiology study. Current medications continued. Regarding diet, he will continue on Glucerna tube feeds at 30 mL/hour via NG tube for now. Hold physical therapy for now. Out of bed with assistance only. The patient will follow up with Cassie Queen, nurse practitioner with Dr. Roca as well as consultants at [facility]. ADDENDUM: 11/27/2019 The patient went to [facility] on 11/27/2019. Thus, Dr. Roca will not be the accepting physician there. Dictated by Newton Macias NP MD POLO SotomayorP/ELLEL /[id number]
[2019-11-27] VITALS (11 sets, daily range): BP systolic 127–161; BP diastolic 83–98
[2019-11-27] MEDS: PIPERACILLIN/TAZO 2.25 GM 50 ML IV SCH ×4 (00:33→17:51)
[2019-11-27 05:03] LABS: BASOPHILS % 0.6 % (0.0-1.0); EOSINOPHILS # (AUTO) 0.2 (0.0-0.4); EOSINOPHILS % 4.5 % (0.0-6.0); HEMATOCRIT 31.8 % (38.2-49.6); HEMOGLOBIN 10.7 g/dL (14.0-18.0); LYMPHOCYTES # (AUTO) 0.8 (1.0-3.2); LYMPHOCYTES % 23.7 % (18.0-39.1); MEAN CORPUSCULAR HEMOGLOBIN 32.7 pg (28-32); MEAN CORPUSCULAR HGB CONC 33.6 g/dL (31-35); MEAN CORPUSCULAR VOLUME 97.2 fL (81-99); MONOCYTES # (AUTO) 0.4 (0.2-0.8); MONOCYTES % 9.9 % (4.4-11.3); NEUTROPHILS # (AUTO) 2.2 (2.1-6.9); RED BLOOD COUNT 3.27 x10e6/uL (4.3-5.7); RED CELL DISTRIBUTION WIDTH 13.9 % (11.7-14.4)
[2019-11-27 05:08] LABS: PLATELET COUNT 33 x10e3/uL (140-360)
[2019-11-27 05:17] LABS: ALBUMIN 1.9 g/dL (3.5-5.0); ALBUMIN/GLOBULIN RATIO 0.6 (0.8-2.0); ANION GAP 11.6 mmol/L (8-16); CALCIUM 7.8 mg/dL (8.4-10.2); CREATININE, SERUM 1.29 mg/dL (0.72-1.25); POTASSIUM 3.6 mmol/L (3.5-5.1)
[2019-11-27] MEDS: LACTULOSE SYRUP 20 GM/30 ML UDC PO SCH ×3 (05:29→17:51)
[2019-11-27] MEDS: LABETALOL HCL 100 MG TAB PO SCH ×2 (09:00→17:00)
[2019-11-27] MEDS: INSULIN LISPRO 100 UNIT/1 ML 3ML VIAL SQ SCH ×5 (09:07→20:37)
[2019-11-27] MEDS: PANTOPRAZOLE 40 MG 10ML VIAL IV SCH ×2 (09:12→17:51)
[2019-11-27] MEDS: LIDOCAINE 4% PATCH TP SCH (09:33)
[2019-11-27] MEDS: RIFAXIMIN 550 MG TABLET PO SCH ×2 (09:33→17:51)
--- NOTE | 2019-11-27 09:34 | NUR ---
Spoke with Sanjuana CASTLE for Dr Tiffanie Briceno. Advised hold the AM dose Trandate currently. She will discuss with Dr Briceno regarding the needed EP studies and pt family refusing [facility], and [facility] declining patient.
--- NOTE | 2019-11-27 11:49 | NUR ---
Pt's and son have decided to allow for transfer to [place] for EP studies.
--- NOTE | 2019-11-27 14:47 | NUR ---
[facility]P INITIATED TRANSFER TO [facility] MOT IN [place] SUP OFFICE XFER FOR EP STUDY WITH DR JOLLEY CM FAXED CLINICALS TO [facility] AT [phone], CONFIRMATION REC'D
--- NOTE | 2019-11-27 15:10 | Progress Note ---
DATE: 11/27/2019 Nephrology Progress Note SUBJECTIVE: The patient is doing well with no complaints. He is at bed today at his baseline. PHYSICAL EXAMINATION: VITAL SIGNS: Temperature is 98, pulse 70, respiratory rate is 18, blood pressure 151/98, and pulse ox 100% on room air. GENERAL: Not in acute distress. Alert and oriented x3. Cooperative on examination. HEENT: Head; normocephalic, atraumatic. Eyes; pupils are equal, round, and reactive to light bilaterally. Extraocular movements intact bilaterally. Throat; no evidence of erythema or exudates in the posterior pharynx. Has poor dentition. NECK: Supple. Good range of motion. PULMONARY: Clear to auscultation bilaterally. No wheezing, no rales, no rhonchi, no crackles appreciated. CARDIOVASCULAR: Positive S1 and S2. No murmurs, rubs, or gallops appreciated. ABDOMEN: Soft, nondistended, and nontender to palpation. Bowel sounds present. MUSCULOSKELETAL: Strength is 5/5 throughout. No evidence of any muscle deficits on examination. No weakness appreciated. NEUROLOGIC: Cranial nerves 2 through 12 grossly intact. No evidence of any neurological deficits on exam. SKIN: Intact. Warm to touch. Good cap refill. PSYCHIATRIC: Normal affect and mood. EXTREMITIES: No edema. Good range of motion throughout. LABORATORY DATA: Show white count 3.5, hemoglobin 10.7, hematocrit is 31.8, and platelets of 33. Chemistry; sodium 142, potassium 3.6, chloride 110, bicarb 24, anion gap of 11, BUN is 19, creatinine is 1.29, glucose is 197, and calcium is 7.8. Total bilirubin is 1.4. His AST 45 and ALT 29. MICROBIOLOGY: None. IMAGING STUDIES: None. IMPRESSION: 1. Acute kidney injury with underlying chronic kidney disease stage 3, now improving. 2. Acute respiratory failure-extubated, now resolved. 3. Syncopal episode of unknown etiology. 4. Type 2 diabetes, insulin-dependent. 5. Metabolic acidosis-resolved. 6. Mild hyperkalemia-resolved. PLAN: At this time, the patient is being transferred to [facility] for an EP study. He is currently doing well. Electrolytes are stable. We will continue to follow very closely. MD CELIO Blackman/ELLEL /[id number]
--- NOTE | 2019-11-27 15:24 | NUR ---
ORQUIDEA SPOKE WITH DR JOLLEY WHO GAVE ORDERS TO INITIATE XFER TO [facility] AND [facility] AND WILL PLAN TRANSFER TO [facility] A BED FIRST ORQUIDEA AND INTERPRETOR SPOKE WITH PT AND PT'S OVER PHONE; BOTH AGREE WITH PLAN CHOICE LETTER ON CHART ORQUIDEA CALLED TRANSFER CENTER AT [facility] PH: [phone] FAX: [phone] SPOKE WITH OSEI FAXED FACE SHEET TO ABOVE NUMBER; CONFIRMATION REC'D
[2019-11-27] MEDS: INSULIN GLARGINE 100 UNITS/ML VIAL SQ SCH (20:38)
--- NOTE | 2019-11-28 19:47 | Progress Note ---
DATE: 11/27/2019 SUBJECTIVE: Mr. Hussein continued to be extubated, awake, alert, stable, has no complaints. So far, according to the nursing staff, no episodes of arrhythmia or syncope. He maintained his feedings through NG tube. His beta-martina has been stopped. I instructed the nurse to DC the NG tube and start GI soft diet. Transferring him is in progress for either [facility] or [facility] for arrhythmia workup, otherwise nothing to add from GI standpoint. Jackeline Ma MD RD/MODL /[id number]
--- NOTE | 2019-11-28 19:52 | Progress Note ---
DATE: 11/27/2019 SUBJECTIVE: Mr. Hussein's NG tube was pulled out. He tolerating his diet well. He had a bowel movement. I spoke with him, he is comfortable, has no GI complaint. The decision has not been made yet about the facility for which the patient to go for arrhythmia workup. From my standpoint, I have nothing to add to his care. I will start following him from a distant unless it needed. Jackeline Ma MD RD/MODL /[id number]
== END 2019-11-27 21:45 | disposition short-term general hospital (02) | DRG 286 ==
LOC: OR 09:05 → PACU V 14:13 → ICU 14:34 → MED/SURG3 11-22 21:48 → ICU 11-23 15:30 → IMCU 11-26 20:51
PROVIDERS: ADMIT Internal Medicine Gastroenterology; ATTEND Internal Medicine Gastroenterology
PROC: 0BH17EZ Insertion of Endotracheal Airway into Trachea, Via Natural or Artificial Opening (ICD-10-PCS; 2019-11-20)
PROC: 5A12012 Performance of Cardiac Output, Single, Manual (ICD-10-PCS; 2019-11-20)
PROC: 0DB68ZX Excision of Stomach, Via Natural or Artificial Opening Endoscopic, Diagnostic (ICD-10-PCS; 2019-11-20)
PROC: 5A1935Z Respiratory Ventilation, Less than 24 Consecutive Hours (ICD-10-PCS; principal; 2019-11-20 10:38)
PROC: 4A023N7 Measurement of Cardiac Sampling and Pressure, Left Heart, Percutaneous Approach (ICD-10-PCS; 2019-11-23)
PROC: 5A1945Z Respiratory Ventilation, 24-96 Consecutive Hours (ICD-10-PCS; 2019-11-23)
PROC: 0BH17EZ Insertion of Endotracheal Airway into Trachea, Via Natural or Artificial Opening (ICD-10-PCS; 2019-11-23)
PROC: 5A12012 Performance of Cardiac Output, Single, Manual (ICD-10-PCS; 2019-11-23)
PROC: B2111ZZ Fluoroscopy of Multiple Coronary Arteries using Low Osmolar Contrast (ICD-10-PCS; 2019-11-23)
PROC: B2151ZZ Fluoroscopy of Left Heart using Low Osmolar Contrast (ICD-10-PCS; 2019-11-23)
DX: I97.121 Postprocedural cardiac arrest following other surgery (principal); K76.7 Hepatorenal syndrome; J96.01 Acute respiratory failure with hypoxia; J69.0 Pneumonitis due to inhalation of food and vomit; K76.6 Portal hypertension; I85.00 Esophageal varices without bleeding; N17.9 Acute kidney failure, unspecified; E87.2 Acidosis; E11.22 Type 2 diabetes mellitus with diabetic chronic kidney disease; N18.3 Chronic kidney disease, stage 3 (moderate); E66.9 Obesity, unspecified; Z68.37 Body mass index [BMI] 37.0-37.9, adult; Z83.3 Family history of diabetes mellitus; Z89.431 Acquired absence of right foot; Z79.4 Long term (current) use of insulin; K70.31 Alcoholic cirrhosis of liver with ascites; Z87.891 Personal history of nicotine dependence; F10.21 Alcohol dependence, in remission; E66.01 Morbid (severe) obesity due to excess calories; E87.5 Hyperkalemia; E11.42 Type 2 diabetes mellitus with diabetic polyneuropathy; E11.65 Type 2 diabetes mellitus with hyperglycemia; R55 Syncope and collapse; I44.1 Atrioventricular block, second degree; E87.6 Hypokalemia; Z11.59 Encounter for screening for other viral diseases; K70.30 Alcoholic cirrhosis of liver without ascites; K29.00 Acute gastritis without bleeding
CPT/HCPCS: 31500; 31720; 36415; 36600; 43239; 70450; 70553; 71045; 74018; 76770; 80048; 80053; 82140; 82550; 82553; 82805; 82948; 83036; 83735; 83874; 84100; 84146; 84443; 84484; 85025; 85610; 85730; 86850; 86900; 87635; 92950; 93005; 93306; 93458; 94002; 94003; 94640; 95812; 96361; 96372; 97139; 99152; C1769; J0330; J0696; J1815; J1817; J1940; J2001; J2060; J2250; J2310; J2370; J2543; J3010; J3410; J7030; P9047; Q9967